=== PATIENT | female | born 1950 | race Caucasian/White ===

== ENCOUNTER → 2016-08-22 | Outpatient (CLI) | payer BC ==
[~2016-08-22] MED LIST: ASPI81TA28 PO; BRIM0.2S OPR; BUPRTAB51 PO; DESV50TA2 PO; ESCI1TAB10 PO; INSDGI SC; LIRA18IN INJ; LOSA50TA6 PO; NXM/40 PO; PRED1SUS3 OPR; SIMV40TA2 PO
--- NOTE | 2016-08-22 12:46 | DIAGNOSTIC IMAGING REPORT ---
ABDOMEN 2VIEW W/PA CHEST RTN CLINICAL HISTORY: ABDOMINAL PAIN pain COMPARISON STUDY: 11/19/2013 FINDINGS: Nonobstructive bowel pattern. Surgical clip right upper quadrant. Unchanging left renal calcification. Postoperative changes low lumbar spine stable area IMPRESSION: No acute process. Nonobstructive bowel pattern. Electronically signed by: Nahid Oliva M.D. 08/22/2016 12:44 PM Dictated Date/Time: 08/22/2016 12:42 PM
== END | disposition home or self-care (01) ==
LOC: C.RADBC 11:55
PROVIDERS: ATTEND Family Medicine
DX: R10.9 Unspecified abdominal pain (principal)

== ENCOUNTER → 2016-08-22 | Outpatient (CLI) | payer BC ==
--- NOTE | 2016-08-22 16:38 | MAMMOGRAPHY REPORT ---
BILATERAL DIGITAL SCREENING MAMMOGRAM WITH CAD: 08/22/2016 CLINICAL HISTORY: Routine screening. Patient has no complaints. TECHNIQUE: Bilateral CC, MLO, XCCM and repeat MLO views were obtained. Current study was also evalu ated with a Computer Aided Detection (CAD) system. COMPARISON: Comparison is made to exams dated: 08/20/2015 mammogram, 08/14/2013 mammogram, 08/18/2014 mammogram, 08/13/2012 mammogram, 08/10/2011 mammogram, and 08/08/2010 mammogram - [facility]. BREAST COMPOSITION: The tissue of both breasts is almost entirely fatty. FINDINGS: There are faint punctate microcalcifications diffusely scattered in the breasts. No new s uspicious mass, architectural distortion or cluster of microcalcifications is seen. IMPRESSION: ACR BI-RADS CATEGORY 1: NEGATIVE There is no mammographic evidence of malignancy. A 1 year screening mammogram is recommended. The p atient will receive written notification of the results. Approximately 10% of breast cancers are not detected with mammography. A negative mammographic repor t should not delay biopsy if a clinically suggestive mass is present. Gloria Herndon M.D. ay/:08/22/2016 16:19:21 Insulation Mechanic: Deidra CONCEPCION(Golden)(M), [facility] letter sent: Normal 1/2 BI-RADS Code: ACR BI-RADS Category 1: Negative
== END | disposition home or self-care (01) ==
LOC: C.MAMM 10:45
PROVIDERS: ATTEND Family Medicine
DX: Z12.31 Encounter for screening mammogram for malignant neoplasm of breast (principal); R10.9 Unspecified abdominal pain

== ENCOUNTER 2016-09-02 12:13 | Observation (INO) | payer BC, OTHER ==
[~2016-09-02] VITALS: Ht 165.1 cm; Wt 136.0 kg
[~2016-09-02 12:13] MED LIST changes: -DESV50TA2 PO
[2016-09-02] MEDS ORDERED: DESV50TA2 PO (12:50)
[2016-09-02] MEDS ORDERED: PRED1SUS3 OPR (12:50)
[2016-09-02] MEDS ORDERED: INSDGI SC (12:50)
[2016-09-02 13:24] LABS: MANUAL MICROSCOPIC REQUIRED? NO; REVIEW REQ? NO; URINE APPEARANCE CLEAR (CLEAR); URINE BILIRUBIN NEG (NEG); URINE COLOR DK YELLOW; URINE EPITHELIAL CELL AUTO >30 /lpf (0-5); URINE NITRITE NEG (NEG); URINE PH 6.5 (4.5-7.5); URINE SPECIFIC GRAVITY 1.021 (1.000-1.030); UROBILINOGEN NEG (NEG)
[2016-09-02 13:50] LABS: BASO % 0.3 %; BASO ABS # 0.02 K/uL (0-0.2); COMPLETE YES; EOS % 0.2 %; HEMATOCRIT 43.2 % (37-47); IG% 0.2 %; LYMPH % 33.7 %; LYMPH ABS # 1.99 K/uL (1.2-3.4); MEAN CORPUSCULAR HGB CONC 34.5 g/dl (32-36); MEAN PLATELET VOLUME 8.9 fL (7.4-10.4); MONO % 6.3 %; NEUT % 59.3 %; PLATELET COUNT 273 K/uL (130-400); RED BLOOD COUNT 5.14 M/uL (4.2-5.4)
[2016-09-02 13:51] LABS: INR 0.9 (0.9-1.1); PROTHROMBIN TIME (PATIENT) 9.8 SECONDS (9.0-12.0)
[2016-09-02 14:02] LABS: BUN/CREATININE RATIO 13.4 (10-20); CREATININE 0.96 mg/dl (0.60-1.20); POTASSIUM 4.6 mmol/L (3.5-5.1)
--- NOTE | 2016-09-02 14:10 | DIAGNOSTIC IMAGING REPORT ---
ABDOMEN 2VIEW W/PA CHEST RTN CLINICAL HISTORY: Upper abdominal pain COMPARISON STUDY: 08/14/2016 FINDINGS: The erect chest reveals no evidence of free air. There is no evidence of focal pulmonary consolidation.] Erect and supine views of the abdomen reveal no abnormally dilated loops of large or small bowel. There are no transition zone to indicate bowel obstruction. There are postsurgical changes present within the lumbar spine. There is moderate stool present within the colon. There are multiple pelvic basin calcifications which likely represent phleboliths. IMPRESSION: No evidence of bowel obstruction. No evidence of free air. Electronically signed by: Jeff Rodríguez M.D. 09/02/2016 2:08 PM Dictated Date/Time: 09/02/2016 2:07 PM
[2016-09-02 14:18] LABS: ESTIMATED AVERAGE GLUCOSE 120 mg/dl; HA1C FLAG Normal (Normal)
[2016-09-02] MEDS ORDERED: OPTIRAY 320 IV PRN (14:30)
--- NOTE | 2016-09-02 15:04 | DIAGNOSTIC IMAGING REPORT ---
CT ANGIOGRAM OF THE CHEST CLINICAL HISTORY: Chest and abdominal pain. COMPARISON STUDY: September 2008 TECHNIQUE: Following the IV administration of 59 mL of Optiray-320, CT angiogram of the thorax was performed from the thoracic inlet to the lung bases utilizing the pulmonary embolus protocol. Images are reviewed in the axial, sagittal, and coronal planes. IV contrast was administered without complication. MIP imaging was performed. CT DOSE: 2851.63 mGy.cm FINDINGS: Within the upper abdomen there is a metallic density adjacent the gallbladder fundus. There is a partially visualized right renal cyst. There is left-sided nephrolithiasis. No pathologically enlarged axillary mediastinal or hilar lymph nodes were visualized. There was no evidence of thoracic aortic dilatation. There were no pulmonary artery filling defects to indicate acute pulmonary embolism. No pleural effusions are visualized. There is no focal pulmonary consolidation. IMPRESSION: 1. No CT evidence of acute pulmonary embolism 2. No evidence of focal pulmonary consolidation. Electronically signed by: Jeff Rodríguez M.D. 09/02/2016 3:02 PM Dictated Date/Time: 09/02/2016 2:58 PM
--- NOTE | 2016-09-02 15:08 | DIAGNOSTIC IMAGING REPORT ---
CT ABD/PELVIS IV CONTRAST ONLY CLINICAL HISTORY: upper abd pain COMPARISON STUDY: 01/27/2016 TECHNIQUE: Following the IV administration of 59 mL of Optiray-320, CT scan of the abdomen and pelvis was performed from the lung bases to the proximal femurs. Images are reviewed in the axial, sagittal, and coronal planes. IV contrast was administered without complication. CT DOSE: FINDINGS: Lower chest: The heart is normal in size and configuration, without pericardial effusion. The lung bases and pleural spaces are clear. Liver: The contrast-enhanced liver is normal in size, contour, and attenuation. There is no intrahepatic biliary ductal dilatation. The hepatic veins and portal veins are patent. Gallbladder: No stones are visualized. There is a metallic density abutting the gallbladder fundus Spleen: Normal in size and attenuation. Pancreas: Unremarkable. Adrenal glands: Unremarkable. Kidneys: No solid there is a 6 cm right renal cyst. Renal masses are visualized. There is no hydronephrosis. Bowel: There are no transition zones indicate bowel obstruction. There is no evidence of acute diverticulitis. There are scattered colonic diverticula present. There are no findings to indicate acute appendicitis. Peritoneum: There is no intraperitoneal free air or abdominal ascites. Vasculature: The abdominal aorta is normal in course and caliber. Adenopathy: None. Pelvic viscera: The bladder, and pelvic viscera are unremarkable. Skeletal structures: There are postsurgical changes present within the lumbar spine. There is evidence for prior spinal fusion. IMPRESSION: 1. No acute intra-abdominal or pelvic findings 2. No evidence of bowel obstruction. No evidence of free air 3. No evidence of acute appendicitis. No evidence of acute diverticulitis. Electronically signed by: Jeff Rodríguez M.D. 09/02/2016 3:06 PM Dictated Date/Time: 09/02/2016 3:02 PM
[2016-09-02] MEDS ORDERED: ONDANSETRON INJ 2 MG/ML 2 ML VIAL IV PRN (16:30)
[2016-09-02] MEDS ORDERED: ACETAMINOPHEN 325 MG TAB PO PRN (16:30)
[2016-09-02] MEDS ORDERED: LORAZEPAM 2 MG/ML 1 ML VIAL IV PRN ×2 (16:30)
[2016-09-02] MEDS ORDERED: MoRPHine SULFATE 4 MG/ML 1 ML CARP\\VIAL IV PRN (16:30)
[2016-09-02] MEDS ORDERED: MoRPHine SULFATE 2 MG/ML CARP IV PRN (16:30)
[2016-09-02] MEDS ORDERED: OXYCODONE HCL IR 5 MG TAB (IMMEDIATE RELEASE) PO PRN (16:30)
[2016-09-02] MEDS ORDERED: NITROGLYCERIN 0.4 MG SL PER TAB CHARGE SL PRN (16:30)
[2016-09-02] MEDS ORDERED: LORAZEPAM 0.5 MG TAB PO PRN (16:30)
[2016-09-02] MEDS ORDERED: POLYETHYLENE (MIRALAX) 17 GM PACK PO PRN (16:30)
[2016-09-02] MEDS ORDERED: IV FLUIDS COMPLETED PRN (17:45)
--- NOTE | 2016-09-02 18:03 | HISTORY & PHYSICAL EXAMINATION ---
DATE OF ADMISSION: 09/02/2016 HISTORY OF PRESENT ILLNESS: Ms. Lau is a 65-year-old female here who presents with a stuttering history of dyspnea, diaphoresis and nausea with exertion which has occurred over the last 4-6 weeks. This is checkered by her history of anxiety and depression. She, however, does have risk factors of dyslipidemia, obesity and diabetes with a distant history of smoking, which she quit 25 years ago. The patient says that she did seek care at her family medicine doctor's office who did a plain EKG in the office without remark. She, however, has been having increasing episodes. Her is with her, he said they were shopping at [employer] most recently, she was pushing the cart, she almost threw up, became diaphoretic and markedly dyspneic just pushing the cart around the store. This resolved with rest. She is recommended for observation for evaluation of this being an anginal equivalent. PAST MEDICAL HISTORY: Depression, anxiety, diabetes, previous cholecystectomy, total knee arthroplasty and spinal fusion. MEDICATIONS: Aspirin 81 a day, Combigan eyedrops, Wellbutrin XL 300 a day, Pristiq 50 b.i.d., Nexium 40 a day, Lantus 15 units subQ daily, Victoza 0.18 units daily, Cozaar 50 a day, prednisolone eyedrops and Zocor 40 daily. SOCIAL HISTORY: As mentioned, she did smoke 25 years ago. Does not drink alcohol. She is accompanied by her . FAMILY HISTORY: Positive for cancer, diabetes, hypertension. There is heart disease in her grandmother, but she said it was a "fatty heart." REVIEW OF SYSTEMS: Ten systems are reviewed and are negative unless listed in that document. She does claim to have a variable bowel habits alternating with constipation and diarrhea. She also has most recently been treated for an outpatient urinary tract infection and her symptoms have resolved. PHYSICAL EXAMINATION: GENERAL: She is pleasant. She is morbidly obese. VITAL SIGNS: Her temperature is 37.2, pulse is 78, respirations 20, BP 134/70, O2 sat 98. Her BMI is 50. HEENT: PERRL, EOMI. Oropharynx clear. NECK: Without lymphadenopathy, JVD, thyromegaly. HEART: Regular without murmurs, clicks, rubs or gallops. LUNGS: Clear without wheezes or crackles. Good air movement. ABDOMEN: Obese, normoactive bowel sounds, soft. EXTREMITIES: Without cyanosis, clubbing or edema. NEUROLOGIC: She is awake, alert and appropriate. Cranial nerves II through XII are intact. Equal symmetrical strength and sensation. SKIN: Without lesions, growths, bruises or bleeding. PSYCHOLOGICAL: She is tearful and tremulous during my examination. LABORATORY DATA: She has had multiple imaging studies in the ER including a chest x-ray, CTA and CT abdomen and pelvis, these are all unremarkable. She had an EKG showing sinus rhythm without acute ST or T-wave changes. She had a troponin that was unremarkable. LFTs are okay. Hemoglobin A1c of 5.8. Her BUN and creatinine are 13 and 0.96. CBC is normal. ASSESSMENT: A 65-year-old white female with cardiac risk factors of smoking, obesity, diabetes, and dyslipidemia who presents with exertional dyspnea, diaphoresis, and nausea, with a significant history of anxiety and depression. PLAN: The patient will be observed on telemetry unit. We will get serial enzymes, a resting echocardiogram. We will continue her Cozaar and aspirin. She believes she can walk on a treadmill, will schedule a stress treadmill test. Regarding her depression, we talked about this, she has been through many antidepressants, we will maintain her Cozaar and Pristiq or substitution of that at this point in time. Regarding her GERD, we will continue her Nexium. We will employ DVT prevention of Lovenox.
[2016-09-02 18:10] VITALS: Ht 165.1 cm; Wt 136.0 kg
--- NOTE | 2016-09-02 18:34 | EMERGENCY ROOM VISIT NOTE ---
History Report prepared by Charlotte: Elizabeth Diaz Under the Supervision of: Dr. Juan Holder M.D. First contact with patient: 12:37 Chief Complaint: ILLNESS Stated Complaint: STOMACH, SWEATING, DIZZY History of Present Illness The patient is a 65 year old female who presents to the Emergency Room with complaints of persistent episodes of dizziness for the past 1 month. She reports when she gets up and walking around, she starts to feel warm, dizzy, sweaty and experience upper abdominal pain and nausea. She states the abdominal pain is "dull" in nature and she also feels a "burning" type pain in her chest. She also admits to shortness of breath during the episodes. The patient saw her doctor 2 days ago and had an EKG that was unremarkable. This morning her nausea worsened, so she came to the ED. She has been able to eat today and states she has not vomited. The patient no longer has her gallbladder. She admits to a history of diabetes, hypertension and hyperlipidemia. She reports her bowels cycle between constipation and loose stools. She used to eat a "low carb, high fat diet" and states she lost 65 pounds, but that seems to have exacerbated her abdominal symptoms. 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 A total of 10 systems reviewed and were otherwise negative. Past Medical & Surgical Medical Problems: (1) Chest pain (2) Depression (3) Diabetes Surgical Problems: (1) S/P cholecystectomy (2) S/P knee replacement (3) S/P lumbar spinal fusion Family History Cancer Diabetes mellitus Heart disease Hypertension Social History Smoking Status: Former Smoker Alcohol Use: none Drug Use: none Marital Status: Housing Status: lives with family Occupation Status: unemployed Current/Historical Medications Scheduled Aspirin (Aspirin Ec), 81 MG PO QPM Brimonidine Tartrate-Timolol M (Combigan), 1 DROP OPR BID Bupropion (Wellbutrin-Xl), 300 MG PO DAILY Desvenlafaxine Succinate (Pristiq), 50 MG PO BID Esomeprazole Magnesium (Nexium), 40 MG PO QAM Insulin Glargine (Lantus), 15 SC QAM Liraglutide (Victoza), 0.18 MG INJ HS Losartan Potassium (Cozaar), 50 MG PO HS Prednisolone Acetate (Ophth) (Pred Forte 1% Oph), 1 DROPS OPR QAM Simvastatin (Zocor), 40 MG PO HS Allergies Coded Allergies: Erythromycin (Verified Adverse Reaction, Unknown, UPSET STOMACH, 09/02/16) Physical Exam Vital Signs Date Time Temp Pulse Resp B/P Pulse Ox O2 Delivery O2 Flow Rate FiO2 09/02/16 16:53 78 20 116/61 98 Room Air 09/02/16 14:38 78 20 134/70 98 Room Air 09/02/16 13:25 83 09/02/16 13:18 20 09/02/16 12:55 81 114/91 98 110/68 90 108/50 09/02/16 12:55 95 Room Air 09/02/16 12:16 37.2 105 20 92/62 95 Room Air Physical Exam Constitutional: Vital signs reviewed. Eyes: Pupils are equal round reactive to light. Conjunctiva are noninjected. ENT: Pharynx is clear without erythema or exudate. Mucous membranes are moist. Neck supple without meningeal signs. Respiratory: Clear to auscultation bilaterally. Breath sounds are equal bilaterally. Cardiovascular: Regular rate and rhythm. No rubs or gallops. GI: Soft, nondistended. Mild epigastric tenderness. Bowel sounds are present. Musculoskeletal: No peripheral edema. No lower extremity tenderness. Integumentary: No cyanosis. Neurological: The patient is awake and alert. No focal deficits. Psychiatric: Very anxious affect. Medical Decision & Procedures ER Provider Diagnostic Interpretation: This X-Ray was reviewed and interpreted by myself and the radiologist. ABDOMEN 2VIEW W/PA CHEST RTN CLINICAL HISTORY: Upper abdominal pain COMPARISON STUDY: 08/14/2016 FINDINGS: The erect chest reveals no evidence of free air. There is no evidence of focal pulmonary consolidation.] Erect and supine views of the abdomen reveal no abnormally dilated loops of large or small bowel. There are no transition zone to indicate bowel obstruction. There are postsurgical changes present within the lumbar spine. There is moderate stool present within the colon. There are multiple pelvic basin calcifications which likely represent phleboliths. IMPRESSION: No evidence of bowel obstruction. No evidence of free air. Electronically signed by: Jeff Rodríguez M.D. 09/02/2016 2:[address] scans were reviewed and interpreted by the radiologist and reviewed by myself. CT ABD/PELVIS IV CONTRAST ONLY CLINICAL HISTORY: upper abd pain COMPARISON STUDY: 01/27/2016 TECHNIQUE: Following the IV administration of 59 mL of Optiray-320, CT scan of the abdomen and pelvis was performed from the lung bases to the proximal femurs. Images are reviewed in the axial, sagittal, and coronal planes. IV contrast was administered without complication. CT DOSE: FINDINGS: Lower chest: The heart is normal in size and configuration, without pericardial effusion. The lung bases and pleural spaces are clear. Liver: The contrast-enhanced liver is normal in size, contour, and attenuation. There is no intrahepatic biliary ductal dilatation. The hepatic veins and portal veins are patent. Gallbladder: No stones are visualized. There is a metallic density abutting the gallbladder fundus Spleen: Normal in size and attenuation. Pancreas: Unremarkable. Adrenal glands: Unremarkable. Kidneys: No solid there is a 6 cm right renal cyst. Renal masses are visualized. There is no hydronephrosis. Bowel: There are no transition zones indicate bowel obstruction. There is no evidence of acute diverticulitis. There are scattered colonic diverticula present. There are no findings to indicate acute appendicitis. Peritoneum: There is no intraperitoneal free air or abdominal ascites. Vasculature: The abdominal aorta is normal in course and caliber. Adenopathy: None. Pelvic viscera: The bladder, and pelvic viscera are unremarkable. Skeletal structures: There are postsurgical changes present within the lumbar spine. There is evidence for prior spinal fusion. IMPRESSION: 1. No acute intra-abdominal or pelvic findings 2. No evidence of bowel obstruction. No evidence of free air 3. No evidence of acute appendicitis. No evidence of acute diverticulitis. Electronically signed by: Jeff Rodríguez M.D. 09/02/2016 3:[address] ANGIOGRAM OF THE CHEST CLINICAL HISTORY: Chest and abdominal pain. COMPARISON STUDY: September 2008 TECHNIQUE: Following the IV administration of 59 mL of Optiray-320, CT angiogram of the thorax was performed from the thoracic inlet to the lung bases utilizing the pulmonary embolus protocol. Images are reviewed in the axial, sagittal, and coronal planes. IV contrast was administered without complication. MIP imaging was performed. CT DOSE: 2851.63 mGy.cm FINDINGS: Within the upper abdomen there is a metallic density adjacent the gallbladder fundus. There is a partially visualized right renal cyst. There is left-sided nephrolithiasis. No pathologically enlarged axillary mediastinal or hilar lymph nodes were visualized. There was no evidence of thoracic aortic dilatation. There were no pulmonary artery filling defects to indicate acute pulmonary embolism. No pleural effusions are visualized. There is no focal pulmonary consolidation. IMPRESSION: 1. No CT evidence of acute pulmonary embolism 2. No evidence of focal pulmonary consolidation. Electronically signed by: Jeff Rodríguez M.D. 09/02/2016 3:02 PM Laboratory Results 09/02/16 13:10 Red Blood Count 5.14, Mean Corpuscular Volume 84.0, Mean Corpuscular Hemoglobin 29.0, Mean Corpuscular Hemoglobin Concent 34.5, Mean Platelet Volume 8.9, Neutrophils (%) (Auto) 59.3, Lymphocytes (%) (Auto) 33.7, Monocytes (%) (Auto) 6.3, Eosinophils (%) (Auto) 0.2, Basophils (%) (Auto) 0.3, Neutrophils # (Auto) 3.50, Lymphocytes # (Auto) 1.99, Monocytes # (Auto) 0.37, Eosinophils # (Auto) 0.01, Basophils # (Auto) 0.02 09/02/16 13:10 Test 09/02/16 12:55 09/02/16 13:10 09/02/16 13:17 Urine Color DK YELLOW Urine Appearance CLEAR (CLEAR) Urine pH 6.5 (4.5-7.5) Urine Specific Julian 1.021 (1.000-1.030) Urine Protein NEG (NEG) Urine Glucose (UA) NEG (NEG) Urine Ketones TRACE (NEG) Urine Occult Blood TRACE (NEG) Urine Nitrite NEG (NEG) Urine Bilirubin NEG (NEG) Urine Urobilinogen NEG (NEG) Urine Leukocyte Esterase NEG (NEG) Urine WBC (Auto) 1-5 /hpf (0-5) Urine RBC (Auto) 5-10 /hpf (0-4) Urine Hyaline Casts (Auto) 1-5 /lpf (0-5) Urine Epithelial Cells (Auto) >30 /lpf (0-5) Urine Bacteria (Auto) NEG (NEG) White Blood Count 5.90 K/uL (4.8-10.8) Red Blood Count 5.14 M/uL (4.2-5.4) Hemoglobin 14.9 g/dL (12.0-16.0) Hematocrit 43.2 % (37-47) Mean Corpuscular Volume 84.0 fL (80-100) Mean Corpuscular Hemoglobin 29.0 pg (25-34) Mean Corpuscular Hemoglobin Concent 34.5 g/dl (32-36) Platelet Count 273 K/uL (130-400) Mean Platelet Volume 8.9 fL (7.4-10.4) Neutrophils (%) (Auto) 59.3 % Lymphocytes (%) (Auto) 33.7 % Monocytes (%) (Auto) 6.3 % Eosinophils (%) (Auto) 0.2 % Basophils (%) (Auto) 0.3 % Neutrophils # (Auto) 3.50 K/uL (1.4-6.5) Lymphocytes # (Auto) 1.99 K/uL (1.2-3.4) Monocytes # (Auto) 0.37 K/uL (0.11-0.59) Eosinophils # (Auto) 0.01 K/uL (0-0.5) Basophils # (Auto) 0.02 K/uL (0-0.2) RDW Standard Deviation 45.0 fL (36.4-46.3) RDW Coefficient of Variation 14.5 % (11.5-14.5) Immature Granulocyte % (Auto) 0.2 % Immature Granulocyte # (Auto) 0.01 K/uL (0.00-0.02) Prothrombin Time 9.8 SECONDS (9.0-12.0) Prothromb Time International Ratio 0.9 (0.9-1.1) Activated Partial Thromboplast Time 25.4 SECONDS (21.0-31.0) Partial Thromboplastin Ratio 1.0 Anion Gap 5.0 mmol/L (3-11) Est Creatinine Clear Calc Drug Dose 80.0 ml/min Estimated GFR () 70.9 Estimated GFR (Non- 61.2 BUN/Creatinine Ratio 13.4 (10-20) Estimated Average Glucose 120 mg/dl Hemoglobin A1c 5.8 % (4.5-5.6) Calcium Level 9.0 mg/dl (8.5-10.1) Total Bilirubin 0.6 mg/dl (0.2-1) Direct Bilirubin 0.1 mg/dl (0-0.2) Aspartate Amino Transf (AST/SGOT) 14 U/L (15-37) Alanine Aminotransferase (ALT/SGPT) 18 U/L (12-78) Alkaline Phosphatase 71 U/L (45-117) Total Protein 6.9 gm/dl (6.4-8.2) Albumin 3.4 gm/dl (3.4-5.0) Lipase 151 U/L (73-393) Bedside Troponin I 0.000 ng/ml (0-0.045) Laboratory results as reviewed by me. ECG Indication: abdominal pain Rate (beats per minute): 75 Rhythm: normal sinus Findings: no acute ischemic change, no ectopy ED Course 1239: The patient was evaluated in room C8. A complete history and physical exam was performed. 1415: I reevaluated the patient. I discussed her test results and recommended a CT scan of her chest and abdomen. She is agreeable to a CT scan. 1539: I discussed the patients case with Dr. Meyer, [facility] Hospitalist. The patient will be further evaluated. 1545: I reevaluated the patient. I discussed her test results. I recommendation hospitalization for further evaluation and she verbalized complete understanding and agreement. Medical Decision This is a 65-year-old female who presents with exertional chest and abdominal pain, dyspnea and diaphoresis. Differential diagnosis includes unstable angina , HI, pulmonary embolism, pleurisy, anxiety, choledocholithiasis, pancreatitis. I did perform a limited focused review of portions of the patient's old chart on the electronic medical record. The patient has had no recent pertinent visits to this hospital. I did evaluate the patient as noted above. The patient has had intermittent symptoms for a month. Exertion makes her diaphoretic, dyspneic and near- syncope. She also has epigastric and lower chest pain. Currently she is asymptomatic. IV access was established. The patient was placed on a continuous cardiac/vascular sonographer. I did order and personally review the patient's 12- lead EKG and chest/abdomen x-rays as described above. Her twelve-lead EKG does not demonstrate any signs of acute ischemia. Her chest x-ray and abdominal x- ray did not show any acute process. I did order and review the patient's blood work as noted in the electronic medical record. Troponin is negative. I did order a CT of the chest, abdomen and pelvis. I did review the images myself as well as the radiology report as described above. There is no evidence of pulmonary embolism. No acute process in the abdomen and pelvis. I did discuss the test results with the patient. Given her persistent and worsening symptoms I did feel hospitalization was indicated for further workup and possible cardiac stress testing. I did discuss case with the hospitalist and caser in. Consults Time Called: [phone] Consulting Physician: Dr. Meyer, [facility] Hospitalist Returned Call: [phone] I discussed the patients case with Dr. Meyer, [facility] Hospitalist. The patient will be further evaluated. Impression Primary Impression: Near syncope Additional Impressions: Precordial chest pain Exertional dyspnea Upper abdominal pain Scribe Attestation The scribe's documentation has been prepared under my direct and personally reviewed by me in its entirety. I confirm that the note above accurately reflects all work, treatment, procedures, and medical decision making performed by me. Departure Information Dispostion Being Evaluated By Hospitalist Referrals No Doctor, Assigned (PCP) Patient Instructions My [facility] Problem Qualifiers
[2016-09-02] MEDS ORDERED: GLUCOSE 40% GEL 15 GM TUBE PO PRN (19:30)
[2016-09-02] MEDS ORDERED: GLUCAGON FOR INJ 1 MG VIAL SQ PRN (19:30)
[2016-09-02] MEDS ORDERED: DEXTROSE 50% 50 ML SYR IV PRN (19:30)
[2016-09-02] MEDS ORDERED: GLUCOSE 10 TABS/TUBE PO PRN (19:30)
[2016-09-02 19:37] VITALS: BP 136/81; PULSE 79; TEMP 37; O2SAT 96
[2016-09-02] MEDS ORDERED: LORAZEPAM INJ 1 MG in SYRINGE 0.5 ML IV PRN (19:45)
[2016-09-02] MEDS ORDERED: LORAZEPAM INJ 0.5 MG in SYRINGE 0.75 ML IV PRN (19:45)
[2016-09-02] MEDS: INSULIN ASPART 100 UNITS/ML 3 ML PEN SC SCH (21:00)
[2016-09-02] MEDS ORDERED: NON-FORMULARY MEDICATION (Brimonidine Tartrate-Timolol M (Combigan) 1 DROP) OPR SCH (21:00)
[2016-09-02] MEDS ORDERED: DESVENLAFAXINE SUCCINATE 50 MG PO SCH (21:00)
[2016-09-02] MEDS ORDERED: SIMVASTATIN 40 MG TAB PO SCH (21:00)
[2016-09-02] MEDS: LOSARTAN POTASSIUM 50 MG TAB PO SCH (21:09)
[2016-09-02] MEDS: ASPIRIN 81 MG ECTAB PO SCH (21:09)
[2016-09-02] MEDS: ENOXAPARIN 40 MG/0.4 ML SYR SC SCH (21:10)
[2016-09-02] MEDS: PANTOprazole SOD 40 MG TAB PO SCH (21:10)
[2016-09-02] MEDS: COMBIGAN~ORDER AWAITING ACTION SCH (23:19)
[2016-09-02 23:24] VITALS: BP 128/76; PULSE 72; TEMP 37; O2SAT 94
[2016-09-03] VITALS (7 sets, daily range): BP systolic 105–143; BP diastolic 68–87; PULSE 68–74; TEMP 36.7–36.9; O2SAT 95–98
[2016-09-03 06:51] LABS: HEMATOCRIT 42.5 % (37-47); MEAN CELL VOLUME 84.8 fL (80-100); MEAN CORPUSCULAR HEMOGLOBIN 28.5 pg (25-34); MEAN CORPUSCULAR HGB CONC 33.6 g/dl (32-36); MEAN PLATELET VOLUME 8.6 fL (7.4-10.4); PLATELET COUNT 229 K/uL (130-400); RED BLOOD COUNT 5.01 M/uL (4.2-5.4); WHITE BLOOD COUNT 5.54 K/uL (4.8-10.8)
[2016-09-03 07:36] LABS: BLOOD UREA NITROGEN 15 mg/dl (7-18); BUN/CREATININE RATIO 18.4 (10-20); CALCIUM 8.6 mg/dl (8.5-10.1); CARBON DIOXIDE 29 mmol/L (21-32); CHLORIDE 103 mmol/L (98-107); CREATININE 0.81 mg/dl (0.60-1.20); GLUCOSE 108 mg/dl (70-99); POTASSIUM 4.3 mmol/L (3.5-5.1); SODIUM 140 mmol/L (136-145)
[2016-09-03 07:40] LABS: CHOLESTEROL 228 mg/dl (0-200); CHOLESTEROL/HDL RATIO 3.6; HDL CHOLESTEROL 64 mg/dl; LDL CHOLESTEROL CALCULATED 148 mg/dl; TRIGLYCERIDES 82 mg/dl (0-150); VERY LOW DENSITY LIPOPROT CALC 16 mg/dl
[2016-09-03] MEDS: COMBIGAN~ORDER AWAITING ACTION SCH ×3 (08:00→23:29)
[2016-09-03] MEDS: INSULIN ASPART 100 UNITS/ML 3 ML PEN SC SCH ×4 (08:09→20:51)
[2016-09-03] MEDS: BuPROPion XL 300 MG TABCR PO SCH (08:16)
[2016-09-03] MEDS: PANTOprazole SOD 40 MG TAB PO SCH ×2 (08:16→20:43)
[2016-09-03] MEDS: PrednisoLONE ACET 1% OP SUSP 5 ML BTL OPR SCH (08:16)
[2016-09-03] MEDS: INSULIN GLARGINE SOLOSTAR 100 UNITS/ML 3 ML PEN SC SCH (08:18)
[2016-09-03] MEDS ORDERED: NON-FORMULARY MEDICATION (Esomeprazole Magnesium (Nexium) 40 MG) PO SCH (09:00)
[2016-09-03] MEDS ORDERED: ASPIRIN 81 MG ECTAB PO SCH (09:00)
--- NOTE | 2016-09-03 15:46 | ECHOCARDIOGRAM REPORT ---
*NOTICE TO RECEIVING DEMOCRAT AGENCY This information is strictly Confidential and protected under [place] law. [place] law prohibits you from making any further disclosure of this information unless further disclosure is expressly permitted by the written consent of the person to whom it pertains or is authorized by law. A general authorization for the release of medical or other information is not sufficient for this purpose. Hospital accepts no responsibility if the information is made available to any other person, INCLUDING THE PATIENT. Interpretation Summary * Name: ELICEO GOLDBERG Study Date: 09/03/2016 12:45 PM BP: 136/80 mmHg * Patient Location: [facility] HR: 74 * : 1950 (M/d/yyyy) Gender: Female Height: 65 in * Age: 65 yrs Ethnicity: CA Weight: 300 lb * Ordering Physician: Juan Meyer * Referring Physician: CARTER * Performed By: Aurelia Blake RDCS * * Reason For Study: CHF * BSA: 2.4 m2 * History: CHF * -- Conclusions -- * Left ventricular systolic function is normal. * Grade I diastolic dysfunction, (abnormal relaxation pattern). * No significant valvular disease Procedure Details * A complete two-dimensional transthoracic echocardiogram was performed (2D, M-mode, Doppler and color flow Doppler). Left Ventricle * The left ventricle is normal in size. * There is normal left ventricular wall thickness. * Ejection Fraction = 55-60%. * Left ventricular systolic function is normal. * Grade I diastolic dysfunction, (abnormal relaxation pattern). Right Ventricle * The right ventricle is not well visualized. * The right ventricle is grossly normal size. Atria * The left atrial size is normal. * Right atrial size is normal. Mitral Valve * The mitral valve is grossly normal. * There is no mitral regurgitation noted. Tricuspid Valve * The tricuspid valve is not well visualized. * Significant tricuspid regurgitation is absent. Aortic Valve * The aortic valve is not well visualized. * No hemodynamically significant valvular aortic stenosis. * There is no significant aortic regurgitation. Pulmonic Valve * The pulmonic valve is not well visualized. Pericardium/Pleural * Prominent pericardial fat pad MMode 2D Measurements and Calculations IVSd 1.0 cm IVSs 1.4 cm LVIDd 4.7 cm LVIDs 3.5 cm LVPWd 1.1 cm LVPWs 1.6 cm IVS/LVPW 0.92 FS 25.4 % EDV(Teich) 100.9 ml ESV(Teich) 50.4 ml EF(Teich) 50.0 % EDV(cubed) 101.9 ml ESV(cubed) 42.4 ml EF(cubed) 58.4 % % IVS thick 36.7 % % LVPW thick 45.1 % LV mass(C)d 183.5 grams LV mass(C)dI 78.1 grams/m\S\2 LV mass(C)s 200.6 grams LV mass(C)sI 85.3 grams/m\S\2 SV(Teich) 50.5 ml SI(Teich) 21.5 ml/m\S\2 SV(cubed) 59.5 ml SI(cubed) 25.3 ml/m\S\2 LA dimension 2.9 cm LVAd ap4 27.9 cm\S\2 LVLd ap4 7.8 cm EDV(MOD-sp4) 85.3 ml EDV(sp4-el) 85.1 ml LVAs ap4 16.3 cm\S\2 LVLs ap4 6.6 cm ESV(MOD-sp4) 35.4 ml ESV(sp4-el) 34.6 ml EF(MOD-sp4) 58.5 % EF(sp4-el) 59.4 % LVAd ap2 20.0 cm\S\2 LVLd ap2 7.4 cm EDV(MOD-sp2) 48.0 ml EDV(sp2-el) 45.5 ml LVAs ap2 12.0 cm\S\2 LVLs ap2 6.2 cm ESV(MOD-sp2) 21.3 ml ESV(sp2-el) 19.7 ml EF(MOD-sp2) 55.6 % EF(sp2-el) 56.7 % LVLd %diff -4.93 % EDV(MOD-bp) 65.7 ml LVLs %diff -5.19 % ESV(MOD-bp) 28.0 ml EF(MOD-bp) 57.3 % SV(MOD-sp4) 49.8 ml SI(MOD-sp4) 21.2 ml/m\S\2 SV(MOD-sp2) 26.7 ml SI(MOD-sp2) 11.4 ml/m\S\2 SV(MOD-bp) 37.6 ml SI(MOD-bp) 16.0 ml/m\S\2 SV(sp4-el) 50.5 ml SI(sp4-el) 21.5 ml/m\S\2 SV(sp2-el) 25.8 ml SI(sp2-el) 11.0 ml/m\S\2 Doppler Measurements and Calculations MV A max jaci 95.6 cm/sec MV P1/2t max jaci 78.6 cm/sec MV dec time 0.24 sec Ao V2 max 136.3 cm/sec Ao max PG 7.4 mmHg Ao max PG (full) 4.7 mmHg LV V1 max PG 2.8 mmHg LV V1 max 83.4 cm/sec
--- NOTE | 2016-09-03 16:04 | Progress Note ---
Subjective Date of Service: Sep 03, 2016. Subjective Pt evaluation today including: conversation w/ patient, conversation w/ family , physical exam, lab review, review of inpatient medication list Pain: no pain PO Intake: adequate Voiding: no voiding problems patient only walked 3 minutes on treadmill, had nausea, diaphoresis like she typically does no EKG changes, echo normal, discussed with Dr. Davidson plan for nuclear stress test tomorrow Problem List Medical Problems: (1) Exertional dyspnea Status: Acute (2) Near syncope Status: Acute (3) Precordial chest pain Status: Acute (4) Sinus pain Status: Acute (5) Upper abdominal pain Status: Acute Review of Systems Constitutional: + sweats, + weakness Abdomen: + nausea All Other Systems: Reviewed and Negative Medications Current Inpatient Medications Medications (Trade) Dose Ordered Sig/[place] Route Start Time Stop Time Status Last Admin Dose Admin Ioversol (Optiray 320) 100 ml UD PRN IV 09/02/16 14:30 09/06/16 14:29 Aspirin (Ecotrin Tab) 81 mg QPM PO 09/02/16 21:00 10/02/16 20:59 09/02/16 21:09 81 MG Bupropion HCl (Wellbutrin-Xl Tab) 300 mg DAILY PO 09/03/16 09:00 10/03/16 08:59 09/03/16 08:16 300 MG Insulin Glargine (Lantus Solostar Pen) 15 unit QAM SC 09/03/16 09:00 10/03/16 08:59 09/03/16 08:18 15 UNIT Losartan Potassium (coZAAR TAB) 50 mg HS PO 09/02/16 21:00 10/02/16 20:59 09/02/16 21:09 50 MG Prednisolone Acetate (Pred Forte 1% Oph Susp) 1 drops QAM OPR 09/03/16 09:00 10/03/16 08:59 09/03/16 08:16 1 DROPS Enoxaparin Sodium (Lovenox Inj) 40 mg HS SC 09/02/16 21:00 10/02/16 20:59 09/02/16 21:10 40 MG Acetaminophen (Tylenol Tab) 650 mg Q4H PRN PO 09/02/16 16:30 10/02/16 16:29 09/03/16 08:17 650 MG Ondansetron HCl (Zofran Inj) 4 mg Q6H PRN IV 09/02/16 16:30 10/02/16 16:29 09/03/16 10:04 4 MG Nitroglycerin (Nitrostat Tab) 0.4 mg UD PRN SL 09/02/16 16:30 10/02/16 16:29 Polyethylene (Miralax Powder Packet) 17 gm DAILY PRN PO 09/02/16 16:30 10/02/16 16:29 Insulin Aspart (novoLOG ASPART) SLIDING SCALE PARAMETER ACHS SC 09/02/16 21:00 10/02/16 20:59 Lorazepam (Ativan Inj) 0.5 mg Q4H PRN IV 09/02/16 16:30 10/02/16 16:29 Lorazepam (Ativan Inj) 1 mg Q4H PRN IV 09/02/16 16:30 10/02/16 16:29 Lorazepam (Ativan Tab) 0.5 mg Q6 PRN PO 09/02/16 16:30 10/02/16 16:29 09/02/16 21:18 0.5 MG Morphine Sulfate (MoRPHine SULFATE INJ) 4 mg Q4H PRN IV 09/02/16 16:30 09/16/16 16:29 Morphine Sulfate (MoRPHine SULFATE INJ) 2 mg Q4H PRN IV 09/02/16 16:30 09/16/16 16:29 Oxycodone HCl (Roxicodone Immediate Rel Tab) 10 mg Q6 PRN PO 09/02/16 16:30 09/16/16 16:29 Pantoprazole Sodium (Protonix Tab) 40 mg BID PO 09/02/16 21:00 10/02/16 20:59 09/03/16 08:16 40 MG Miscellaneous (Iv Fluids Completed) 1 ea PRN PRN N/A 09/02/16 17:45 09/02/17 17:44 Glucose (Glucose 40% Gel) 15-30 GRAMS 15 GRAMS... UD PRN PO 09/02/16 19:30 10/02/16 19:29 Glucose (Glucose Chew Tab) 4-8 Tablets 4 Tabl... UD PRN PO 09/02/16 19:30 10/02/16 19:29 Dextrose (Dextrose 50% 50ML Syringe) 25-50ML OF 50% DW IV FOR... UD PRN IV 09/02/16 19:30 10/02/16 19:29 Glucagon (Glucagon Inj) 1 mg UD PRN SQ 09/02/16 19:30 10/02/16 19:29 Miscellaneous Information (Order Awaiting Action) 1 ea QS N/A 09/03/16 00:00 10/03/16 00:00 Miscellaneous Information 1 ea 1 ea QS N/A 09/03/16 00:00 10/03/16 00:00 Lorazepam 1 mg/ Syringe 1 ml @ 1 mls/min Q4H PRN IV 09/02/16 19:45 10/02/16 19:44 Lorazepam/Syringe (Ativan Inj/ Syringe) 1 ml @ 1 mls/min Q4H PRN IV 09/02/16 19:45 10/02/16 19:44 Atorvastatin Calcium (Lipitor Tab) 40 mg HS PO 09/03/16 21:00 10/03/16 20:59 Objective Vital Signs Date Time Temp Pulse Resp B/P Pulse Ox O2 Delivery O2 Flow Rate FiO2 09/03/16 15:28 36.8 72 16 134/82 95 Room Air 09/03/16 12:30 Room Air 09/03/16 11:52 36.7 74 18 136/80 95 Room Air 09/03/16 07:45 Room Air 09/03/16 07:39 36.9 70 17 143/87 98 Room Air 09/03/16 04:10 Room Air 09/03/16 04:02 36.8 72 18 119/81 97 Room Air 09/03/16 00:08 Room Air 09/02/16 23:24 37.0 72 18 128/76 94 Room Air 09/02/16 19:57 Room Air 09/02/16 19:37 37.0 79 18 136/81 96 Room Air 09/02/16 19:06 102 18 111/59 95 09/02/16 19:00 102 18 111/59 95 Room Air 09/02/16 18:10 Room Air 09/02/16 16:53 78 20 116/61 98 Room Air Physical Exam General Appearance: no apparent distress, + obese Eyes: normal inspection, EOMI, sclerae normal ENT: normal ENT inspection, hearing grossly normal, pharynx normal Neck: supple, no adenopathy, no JVD, trachea midline Respiratory/Chest: chest non-tender, lungs clear, normal breath sounds, no respiratory distress, no accessory muscle use Cardiovascular: regular rate, rhythm, no edema, no gallop, no JVD, no murmur Abdomen: normal bowel sounds, non tender, soft, no organomegaly Extremities: normal range of motion, non-tender, normal inspection, no pedal edema, no calf tenderness 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6 fL Sodium Level 140 mmol/L Potassium Level 4.3 mmol/L Chloride Level 103 mmol/L Carbon Dioxide Level 29 mmol/L Anion Gap 8.0 mmol/L Blood Urea Nitrogen 15 mg/dl Creatinine 0.81 mg/dl Est Creatinine Clear Calc Drug Dose 94.4 ml/min Estimated GFR () 87.1 Estimated GFR (Non- 75.2 BUN/Creatinine Ratio 18.4 Random Glucose 108 mg/dl Calcium Level 8.6 mg/dl Triglycerides Level 82 mg/dl Cholesterol Level 228 mg/dl HDL Cholesterol 64 mg/dl LDL Cholesterol, Calculated 148 mg/dl VLDL Cholesterol, Calculated 16 mg/dl Cholesterol/HDL Ratio 3.6 Test 09/03/16 11:47 Bedside Glucose 119 mg/dl Assessment and Plan 65 yo female with history of obesity, high cholesterol, diabetes presenting with anginal like symptoms of diaphoresis and nausea with exertion - Anginal equivalent? normal troponin, normal EKG exercise treadmill today, only lasted 3 minutes before she had symptoms no EKG changes resting echo was normal d/w cardiology, will get Lexiscan test tomorrow to rule out CAD continue aspirin - Hyperlipidemia: change Zocor to Lipitor since LDL high at 146 despite therapy - DM: sugars well controlled on Lantus, Victoza - Obesity: says she has lost 60 pounds recently - DVT prophylaxis: lovenox
--- NOTE | 2016-09-03 18:09 | EXERCISE STRESS TEST ---
EXERCISE STRESS TEST REPORT INDICATION: Exertional dyspnea. FINDINGS: The patient was able to exercise using a standard Jerel protocol for a total of 3 minutes, achieving a maximum heart rate of 139 beats per minute which was 92% of her predicted maximum. The patient's blood pressure at baseline was reported to be 200/100 during exercise, but at the conclusion of the test was 154/75. A baseline EKG revealed normal sinus rhythm without notable ST or T-wave changes. At peak exertion there was no significant ST or T-wave changes. There were no ST or T-wave changes suggestive of ischemia during the entire study. The patient did complain of her index symptom which was dyspnea and nausea at peak exertion which required termination of the test. These symptoms resolved prior to discharge. Zavala treadmill score is 3 which is moderate risk. IMPRESSION: 1. No evidence of ischemia at the workload achieved. 2. Overall poor exercise tolerance. 3. Production of index symptoms without objective evidence of ischemia.
[2016-09-03] MEDS: ENOXAPARIN 40 MG/0.4 ML SYR SC SCH (20:43)
[2016-09-03] MEDS: ASPIRIN 81 MG ECTAB PO SCH (20:43)
[2016-09-03] MEDS: LOSARTAN POTASSIUM 50 MG TAB PO SCH (20:43)
[2016-09-03] MEDS: ATORVASTATIN 40 MG TAB PO SCH (20:43)
[2016-09-04 03:42] VITALS: BP 112/72; PULSE 70; O2SAT 94
[2016-09-04] MEDS: COMBIGAN~ORDER AWAITING ACTION SCH ×2 (06:59→16:00)
[2016-09-04 07:57] VITALS: BP 138/71; PULSE 74; TEMP 36.8; O2SAT 95
--- NOTE | 2016-09-04 08:18 | Hospitalist Progress Note ---
Hospitalist Progress Note Date of Service Sep 04, 2016. (Graciela Gutierrez PA-C) Subjective Pt evaluation today including: conversation w/ patient, conversation w/ family , physical exam, chart review, lab review, review of studies, review of inpatient medication list Pain: none PO Intake: ate breakfast, nothing by mouth for stress test Voiding: no voiding problems Additional Comments: Constitutional: No fever, chills, sweats, fatigue or weakness Eyes: No diplopia, no changes in vision ENT: No sore throat, tinnitus, or trouble swallowing Respiratory: No shortness of breath, No dyspnea at rest or on exertion, no cough or sputum Cardiovascular: No chest pain, palpitations, or flutter Abdomen: No pain, No constipation, No diarrhea, No nausea, No vomiting Musculoskeletal: No calf pain, No joint pain, No swelling Genitourinary : No dysuria or urinary frequency, No hematuria Neurologic: No numbness/tingling, no difficulty with ambulation, no sensory or motor deficits Psychiatric: No depression or anxiety symptoms Endocrine: No fatigue, No weight changes Integumentary: No itch, No rash (Graciela Gutierrez PA-C) Objective Vital Signs Date Time Temp Pulse Resp B/P Pulse Ox O2 Delivery O2 Flow Rate FiO2 09/04/16 07:57 36.8 74 20 138/71 95 Room Air 09/04/16 04:02 Room Air 09/04/16 03:42 70 20 112/72 94 Room Air 09/04/16 00:04 Room Air 09/03/16 23:49 36.7 68 18 105/68 95 Room Air 09/03/16 20:11 36.9 74 16 120/76 95 Room Air 09/03/16 20:04 Room Air 09/03/16 16:00 95 Room Air 09/03/16 15:28 36.8 72 16 134/82 95 Room Air 09/03/16 12:30 Room Air 09/03/16 11:52 36.7 74 18 136/80 95 Room Air (Graciela Gutierrez PA-C) Physical Exam Notes: General: awake, alert, no apparent distress, + morbidly obese Head: Normocephalic, atraumatic ENT: PERRL, EOMI, no pharyngeal exudate, mucous membranes moist Chest: Clear to auscultation, on room air, no adventitious breath sounds Cardiac: Regular rate and rhythm, no murmur, no JVD, normal peripheral pulses, good capillary refill Abdominal: NABS x 4 quadrants, soft, nontender to palpation, no rebound, guarding or tenderness Extremities: Normal inspection, no peripheral edema or erythema, calfs nontender to palpation Psych: Normal mood and affect Neuro: AAO x 3, strength intact bilaterally and related 5/5, no motor deficits, speech is clear, no peripheral sensory deficits (Graciela Gutierrez, MASHAC) Laboratory Results Last 24 Hours Test 09/03/16 11:47 09/03/16 16:34 09/03/16 20:49 09/04/16 07:37 Bedside Glucose 119 mg/dl 121 mg/dl 127 mg/dl 103 mg/dl (Graciela Gutierrez, MASHAC) Assessment and Plan 65 yo female with history of obesity, high cholesterol, diabetes presenting with anginal like symptoms of diaphoresis and nausea with exertion Chest pain rule out Anginal equivalent? normal troponin, normal EKG - exercise treadmill on 09/03/16; patient was only able to complete 3 minutes on the treadmill - no EKG changes - resting echo was normal - Plan for Lexiscan test today to rule out CAD - continue aspirin Hyperlipidemia: - change Zocor to Lipitor since LDL high at 146 despite therapy DM: sugars well controlled on Lantus, Victoza - Patient has some symptoms of nausea which may be related to hypoglycemia. -Discussion was held with the patient regarding checking her glucose as an outpatient on a regular basis. She already has a follow-up with her PCP P scheduled for this Sunday Morbid Obesity - BMI= 49.9: says she has lost 60 pounds recently - Pt will need diet and exercise- encouraged Depression/anxiety -Patient was recently transitioned off of Lexapro to Pristiq, continue wellbutrin - DVT prophylaxis: lovenox Disposition: patient from home, likely discharge after stress test if all is normal later today. (Graciela Gutierrez, MASHAC) I agree with PA assessment and plan and have seen and examined pt myself Resting comfortably in bed No further chest pain VSS Labs reviewed Awaiting Lexiscan stress test Trops x 3 sets unremarkable and EKG reviewed with no ischemic changes Cont to follow (Armando Shetty D.O.)
[2016-09-04] MEDS: INSULIN ASPART 100 UNITS/ML 3 ML PEN SC SCH ×4 (08:43→20:40)
[2016-09-04] MEDS: PANTOprazole SOD 40 MG TAB PO SCH ×2 (08:45→20:37)
[2016-09-04] MEDS: BuPROPion XL 300 MG TABCR PO SCH (08:45)
[2016-09-04] MEDS: PrednisoLONE ACET 1% OP SUSP 5 ML BTL OPR SCH (08:45)
[2016-09-04] MEDS: INSULIN GLARGINE SOLOSTAR 100 UNITS/ML 3 ML PEN SC SCH (08:51)
--- NOTE | 2016-09-04 11:20 | Discharge Instructions ---
Discharge Instructions Date of Service Sep 04, 2016. Admission Reason for Admission: Chest Pain Discharge Discharge Diagnosis / Problem: chest pain Discharge Goals Goal(s): Decrease discomfort, Improve function, Increase independence, Improve disease control Activity Recommendations Activity Limitations: resume your previous activity Lifting Limitations: no more than 25 pounds, gradually increase as tolerated Exercise/Sports Limitations: gradually increase as tolerated May Resume Sexual Activity: when tolerated Shower/Bathe: no limitations Driving or Machine Use: no limitations . Instructions / Follow-Up Instructions / Follow-Up You were admitted to [facility] with chest pain. During your stay here you were treated with intravenous fluids, aspirin, and your regular antihypertensive regimen. Blood work was trended during your stay which was negative for cardiac ischemia (evidence of heart attack lack of blood flow to the heart muscle) You had an treadmill stress test echocardiogram 09/03/16 completed which was normal A stress test was completed on 09/05/16 was also normal. Continue taking all medications as prescribed. Follow up with your PCP as already scheduled on 09/06/16. Follow up with cardiology within 2-[address] Davidson. An appointment will be scheduled for you. Current Hospital Diet Patient's current hospital diet: Diabetes Type 2 Diet Discharge Diet Recommended Diet: AHA Diet (Heart Healthy), Diabetes Type 2 Diet Procedures Procedures Performed: Exercise (Treadmill) stress test 09/03/16 Nuclear Stress Test 09/05/16 Pending Studies Studies pending at discharge: no Laboratory Results Hemoglobin A1c Test 09/02/16 13:10 Range/Units Estimated Average Glucose 120 mg/dl Hemoglobin A1c 5.8 H 4.5-5.6 % Lipid Panel Test 09/03/16 06:30 Range/Units Triglycerides Level 82 0-150 mg/dl Cholesterol Level 228 H 0-200 mg/dl HDL Cholesterol 64 mg/dl Cholesterol/HDL Ratio 3.6 LDL Cholesterol, Calculated 148 mg/dl Medical Emergencies . Who to Call and When: Medical Emergencies: If at any time you feel your situation is an emergency, please call 911 immediately. . Non-Emergent Contact Non-Emergency issues call your: Primary Care Provider Call Non-Emergent contact if: you have a fever, temperature is above 100.5, your pain is not controlled, your pain is worsening, your pain is unusual for you, your pain is concerning you, you have any medication questions . Past History Medical & Surgical History: (1) Chest pain (2) Depression (3) Diabetes (4) Mood disorder (5) Back pain with radiation . "Provider Documentation" section prepared by Stefany Gutierrez. Attending Attestation: Pt seen/examined and care plan d/w JAZMIN Gutierrez on day of discharge. I agree w/ her discharge instructions as outlined. Chivo Aleman MD VTE Core Measure Inpt VTE Proph given/why not?: Unfractionated heparin SQ, T.E.D. Stockings, SCD 's
[2016-09-04 11:42] VITALS: BP 118/70; PULSE 70; TEMP 36.8; O2SAT 95
[2016-09-04] MEDS ORDERED: REGADENOSON 0.4 MG/5 ML SYR ONE (12:31)
[2016-09-04 15:02] VITALS: BP 113/77; PULSE 77; TEMP 36.7; O2SAT 96
[2016-09-04 16:00] VITALS: O2SAT 96
[2016-09-04 20:21] VITALS: BP 126/80; PULSE 80; TEMP 36.8; O2SAT 95
[2016-09-04] MEDS: ATORVASTATIN 40 MG TAB PO SCH (20:37)
[2016-09-04] MEDS: LOSARTAN POTASSIUM 50 MG TAB PO SCH (20:37)
[2016-09-04] MEDS: ASPIRIN 81 MG ECTAB PO SCH (20:37)
[2016-09-04] MEDS: ENOXAPARIN 40 MG/0.4 ML SYR SC SCH (20:38)
[2016-09-05 00:11] VITALS: BP 116/66; PULSE 74; TEMP 36.8; O2SAT 97
[2016-09-05 04:16] VITALS: BP 113/73; PULSE 69; TEMP 36.6; O2SAT 98
[2016-09-05 07:24] LABS: HEMATOCRIT 41.3 % (37-47); MEAN CELL VOLUME 82.9 fL (80-100); MEAN CORPUSCULAR HEMOGLOBIN 28.3 pg (25-34); MEAN CORPUSCULAR HGB CONC 34.1 g/dl (32-36); MEAN PLATELET VOLUME 8.7 fL (7.4-10.4); PLATELET COUNT 214 K/uL (130-400); RED BLOOD COUNT 4.98 M/uL (4.2-5.4); WHITE BLOOD COUNT 4.63 K/uL (4.8-10.8)
[2016-09-05 07:45] LABS: BUN/CREATININE RATIO 19.6 (10-20); CALCIUM 8.8 mg/dl (8.5-10.1); CREATININE 0.75 mg/dl (0.60-1.20); POTASSIUM 4.2 mmol/L (3.5-5.1)
[2016-09-05 07:48] VITALS: BP 128/78; PULSE 71; TEMP 36.7; O2SAT 98
[2016-09-05] MEDS: BuPROPion XL 300 MG TABCR PO SCH (09:06)
[2016-09-05] MEDS: PANTOprazole SOD 40 MG TAB PO SCH (09:06)
[2016-09-05] MEDS: INSULIN GLARGINE SOLOSTAR 100 UNITS/ML 3 ML PEN SC SCH (09:07)
[2016-09-05] MEDS: PrednisoLONE ACET 1% OP SUSP 5 ML BTL OPR SCH (09:07)
[2016-09-05] MEDS: INSULIN ASPART 100 UNITS/ML 3 ML PEN SC SCH ×2 (09:08→12:00)
[2016-09-05] MEDS: COMBIGAN~ORDER AWAITING ACTION SCH ×3 (09:08→16:00)
[2016-09-05 11:03] VITALS: BP 124/69; PULSE 69; TEMP 36.7; O2SAT 94
[2016-09-05 14:16] VITALS: BP 124/69; PULSE 69; TEMP 36.7; O2SAT 94
--- NOTE | 2016-09-05 14:18 | Discharge Summary ---
Discharge Summary Date of Service Sep 05, 2016. (Graciela Gutierrez PA-C) Discharge Summary Admission Date: Sep 02, 2016 at 16:32 Discharge Date: Sep 04, 2016 Discharge Disposition: Home Principal Diagnosis: Chest Pain Problems/Secondary Diagnoses: Diabetes type 2, hyperlipidemia, morbid obesity Immunizations: Have You Had Influenza Vaccine: N/A History of Tetanus Vaccine?: Yes Tetanus Immunization Date: May 29, 2001 History of Pneumococcal: Yes History of Hepatitis B Vaccine: Yes Procedures: ABDOMEN 2VIEW W/PA CHEST RTN 09/02/16 IMPRESSION: No evidence of bowel obstruction. No evidence of free air. CT ANGIOGRAM OF THE CHEST 09/02/16 IMPRESSION: 1. No CT evidence of acute pulmonary embolism 2. No evidence of focal pulmonary consolidation. CT ABD/PELVIS IV CONTRAST ONLY 09/02/16 IMPRESSION: 1. No acute intra-abdominal or pelvic findings 2. No evidence of bowel obstruction. No evidence of free air 3. No evidence of acute appendicitis. No evidence of acute diverticulitis. 2D Echocardiogram 09/03/16 * -- Conclusions -- * Left ventricular systolic function is normal. * Grade I diastolic dysfunction, (abnormal relaxation pattern). * No significant valvular disease Exercise Stress Test 09/03/16 and 09/05/16 IMPRESSION: 1. No evidence of ischemia at the workload achieved. 2. Overall poor exercise tolerance. 3. Production of index symptoms without objective evidence of ischemia. Consultations: Cardiology (Graciela Gutierrez PA-C) Procedures: lexiscan stress test: IMPRESSION: 1. Small mild inferior/inferolateral perfusion defect most consistent with potential artifact. Less likely, this represents right coronary artery/dominant circumflex distribution disease. In that situation, only mild/low risk ischemia with an estimated summed difference score of 3. 2. Normal left ventricular size and function. Ejection fraction 60%. No regional wall motion abnormalities. 3. Nondiagnostic Lexiscan ECG. (Chivo Aleman MD) Medication Reconciliation Continued Medications: Aspirin (Aspirin Ec) 81 Mg Tab 81 MG PO QPM Brimonidine Tartrate-Timolol M (Combigan) 1 Sunita Sunita 1 DROP OPR BID Bupropion (Wellbutrin-Xl) 300 Mg Tabcr 300 MG PO DAILY, TAB Desvenlafaxine Succinate (Pristiq) 50 Mg Tab 50 MG PO BID, TAB Esomeprazole Magnesium (Nexium) 40 Mg Capcr 40 MG PO QAM, 0 Refills Insulin Glargine (Lantus) 100 Unit/Ml Inj 15 SC QAM, VIAL Liraglutide (Victoza) 18 Mg/3 Ml Inj 0.18 MG INJ HS Losartan Potassium (Cozaar) 50 Mg Tab 50 MG PO HS, TAB Prednisolone Acetate (Ophth) (Pred Forte 1% Oph) 1 % Stella 1 DROPS OPR QAM, #10 ML Simvastatin (Zocor) 40 Mg Tab 40 MG PO HS, TAB Discharge Exam Pt evaluation today including: conversation w/ patient, conversation w/ family , physical exam, chart review, lab review, review of studies, review of inpatient medication list Pain: none PO Intake: ate breakfast, nothing by mouth for stress test Voiding: no voiding problems Additional Comments: Constitutional: No fever, chills, sweats, fatigue or weakness Eyes: No diplopia, no changes in vision ENT: No sore throat, tinnitus, or trouble swallowing Respiratory: No shortness of breath, No dyspnea at rest or on exertion, no cough or sputum Cardiovascular: No chest pain, palpitations, or flutter Abdomen: No pain, No constipation, No diarrhea, No nausea, No vomiting Musculoskeletal: No calf pain, No joint pain, No swelling Genitourinary : No dysuria or urinary frequency, No hematuria Neurologic: No numbness/tingling, no difficulty with ambulation, no sensory or motor deficits Psychiatric: No depression or anxiety symptoms Endocrine: No fatigue, No weight changes Integumentary: No itch, No rash (Graciela Gutierrez, PAShiraC) Objective Vital Signs Date Time Temp Pulse Resp B/P Pulse Ox O2 Delivery O2 Flow Rate FiO2 09/04/16 07:57 36.8 74 20 138/71 95 Room Air 09/04/16 04:02 Room Air 09/04/16 03:42 70 20 112/72 94 Room Air 09/04/16 00:04 Room Air 09/03/16 23:49 36.7 68 18 105/68 95 Room Air 09/03/16 20:11 36.9 74 16 120/76 95 Room Air 09/03/16 20:04 Room Air 09/03/16 16:00 95 Room Air 4/9/17 15:28 36.8 72 16 134/82 95 Room Air 09/03/16 12:30 Room Air 09/03/16 11:52 36.7 74 18 136/80 95 Room Air Physical Exam Notes: General: awake, alert, no apparent distress, + morbidly obese Head: Normocephalic, atraumatic ENT: PERRL, EOMI, no pharyngeal exudate, mucous membranes moist Chest: Clear to auscultation, on room air, no adventitious breath sounds Cardiac: Regular rate and rhythm, no murmur, no JVD, normal peripheral pulses, good capillary refill Abdominal: NABS x 4 quadrants, soft, nontender to palpation, no rebound, guarding or tenderness Extremities: Normal inspection, no peripheral edema or erythema, calfs nontender to palpation Psych: Normal mood and affect Neuro: AAO x 3, strength intact bilaterally and related 5/5, no motor deficits, speech is clear, no peripheral sensory deficits (Graciela Gutierrez PA-C) Hospital Course H&P per Juan Meyer M.D. HISTORY OF PRESENT ILLNESS: Ms. Lau is a 65-year-old female here who presents with a stuttering history of dyspnea, diaphoresis and nausea with exertion which has occurred over the last 4-6 weeks. This is checkered by her history of anxiety and depression. She, however, does have risk factors of dyslipidemia, obesity and diabetes with a distant history of smoking, which she quit 25 years ago. The patient says that she did seek care at her family medicine doctor's office who did a plain EKG in the office without remark. She, however, has been having increasing episodes. Her is with her, he said they were shopping at [employer] most recently, she was pushing the cart, she almost threw up, became diaphoretic and markedly dyspneic just pushing the cart around the store. This resolved with rest. She is recommended for observation for evaluation of this being an anginal equivalent PHYSICAL EXAMINATION: GENERAL: She is pleasant. She is morbidly obese. VITAL SIGNS: Her temperature is 37.2, pulse is 78, respirations 20, BP 134/70, O2 sat 98. Her BMI is 50. HEENT: PERRL, EOMI. Oropharynx clear. NECK: Without lymphadenopathy, JVD, thyromegaly. HEART: Regular without murmurs, clicks, rubs or gallops. LUNGS: Clear without wheezes or crackles. Good air movement. ABDOMEN: Obese, normoactive bowel sounds, soft. EXTREMITIES: Without cyanosis, clubbing or edema. NEUROLOGIC: She is awake, alert and appropriate. Cranial nerves II through XII are intact. Equal symmetrical strength and sensation. SKIN: Without lesions, growths, bruises or bleeding. PSYCHOLOGICAL: She is tearful and tremulous during my examination. Hospital course 65 yo female with history of obesity, high cholesterol, diabetes presenting with anginal like symptoms of diaphoresis and nausea with exertion. Resting and stress echocardiogram was completed during inpatient stay and the patient symptoms improved. Both of these studies were found to be essentially negative. Discussion was held with cardiology regarding for follow-up and they will see her in an outpatient adding in 2-4 weeks. Until then continue all other medication as directed. Patient was educated on checking blood glucose regularly to avoid hypoglycemia. Follow-up as already scheduled with PCP tomorrow, 09/06/16. Chest pain rule out Anginal equivalent? normal troponin, normal EKG - exercise treadmill on 09/03/16; patient was only able to complete 3 minutes on the treadmill - was normal - Nuclear stress test (Lexiscan) completed on 09/05/16: Showed small defect but likely motion artifact per Sacha Rich MD. in cardiology - no EKG changes - resting echo was normal - continue aspirin Hyperlipidemia: - change Zocor to Lipitor since LDL high at 146 despite therapy DM: sugars well controlled on Lantus, Victoza - Patient has some symptoms of nausea which may be related to hypoglycemia. - Discussion was held with the patient regarding checking her glucose as an outpatient on a regular basis. She already has a follow-up with her PCP scheduled for this Sunday Morbid Obesity - BMI= 49.9: says she has lost 60 pounds recently - Pt will need diet and exercise- encouraged Depression/anxiety -Patient was recently transitioned off of Lexapro to Pristiq, continue wellbutrin - DVT prophylaxis: lovenox Disposition: patient from home, discharged to home today. Total Time Spent: Greater than 30 minutes This includes examination of the patient, discharge planning, medication reconciliation, and communication with other providers. (Graciela Gutierrez PA-C) Attending Discharge Note & Attestation: Pt seen/examined, chart reviewed, care plan d/w JAZMIN Gutierrez. I agree w/ the thao components of her discharge summary. 65yo diabetic female who presented with several weeks of intermittent dyspnea, nausea, and diaphoresis. No discrete chest pain. Also with fatigue. During this time period she mentioned she had transitioned from one antidepressant/anti-anxiety medication to another. Cardiac enzymes and telemetry were normal during her stay. Lipid profile showed LDL of 148 (unclear how compliant she had been with her statin agent). Resting echo and lexiscan nuclear stress test were normal (see full report above ). Cardiology felt that the one area of abnormality was probably artifact. Discharge exam: gen - obese, nad heart - RRR, s1, s2, no murmur lungs - CTA b/l abd - soft, NT, ND, BS+ ext - no edema The exact etiology of her symptoms was unclear. It is possible that she had withdrawal from her SSRI giving her some of the aforementioned symptoms. I counseled the patient, however, that if the above symptoms persisted she would need referral back to cardiology for consideration of heart catheterization. She voiced understanding. Chivo Aleman MD (Chivo Aleman MD) Discharge Instructions Please refer to the electronic Patient Visit Report (Discharge Instructions) for additional information. (Graciela Gutierrez PA-C) Follow-Up Follow up with your Primary Care Provider within 1 week. Follow-up with cardiology within 2-4 weeks (Graciela Gutierrez PA-C) Additional Copies To Ben Álvarez DO
--- NOTE | 2016-09-05 14:46 | MYOCARDIAL PERFUSION SCAN ---
NUCLEAR STRESS TEST STUDY REQUESTED BY: Juan Meyer MD PATIENT AGE: 65. STUDY TITLE: One-day nuclear medicine technetium-99m Cardiolite myocardial perfusion scan. INDICATIONS FOR STUDY: Chest pain. ECHOCARDIOGRAM: Baseline EKG shows normal sinus rhythm with no significant ST abnormalities with a ventricular rate of 73. LEXISCAN ECHOCARDIOGRAM: Nondiagnostic EKG wen from 69-93 (60% of maximum predicted heart rate). There were no Lexiscan-induced arrhythmias or EKG changes. TECHNIQUE: For the stress portion of the study, 24.0 mCi of technetium-99m Cardiolite IV was injected at 8:00 a.m. on 09/05/2016. Thirty minutes following the injection, imaging of the heart was performed in multiple projections. For the rest portion of the study, 24.2 mCi of technetium-99m Cardiolite was injected IV at 12:00 a.m. One hour following the injection, imaging of the heart was performed in the same projections. FINDINGS: Raw images were reviewed in detail. There was suggestion of a lateral breast shadow on both stress and rest. There was mild diaphragmatic attenuation. There was mild gut uptake impacting the inferior imaging borders of the heart, more so on stress than on rest. No significant extra cardiac pathologic uptake. Short axis, long axis, vertical long axis images were reviewed in detail. There was no visual TID. There was a small mild perfusion defect involving the mid, inferior/inferolateral brown and the apical inferior wall. This defect was partially reversible with a summed difference score of approximately 3. LV was normal size with an end-diastolic volume of 69. LV function was normal with an EF of 60%. There were no regional wall motion abnormalities. IMPRESSION: 1. Small mild inferior/inferolateral perfusion defect most consistent with potential artifact. Less likely, this represents right coronary artery/dominant circumflex distribution disease. In that situation, only mild/low risk ischemia with an estimated summed difference score of 3. 2. Normal left ventricular size and function. Ejection fraction 60%. No regional wall motion abnormalities. 3. Nondiagnostic Lexiscan ECG. MTDD
== END 2016-09-05 16:47 | disposition home or self-care (01) ==
LOC: ENRESERVDT → ENRESERVTM → C.EDB 12:15 → C.MED 16:32
PROVIDERS: ADMIT Internal Medicine; ATTEND Internal Medicine
DX: R07.89 Other chest pain (principal); E11.9 Type 2 diabetes mellitus without complications; E78.5 Hyperlipidemia, unspecified; E66.01 Morbid (severe) obesity due to excess calories; Z68.42 Body mass index [BMI] 45.0-49.9, adult; Z83.3 Family history of diabetes mellitus; Z82.49 Family history of ischemic heart disease and other diseases of the circulatory system; Z79.82 Long term (current) use of aspirin; Z87.891 Personal history of nicotine dependence; F32.9 Major depressive disorder, single episode, unspecified; Z79.899 Other long term (current) drug therapy

== ENCOUNTER 2016-09-15 15:15 | Emergency (ER) | payer BC ==
[~2016-09-15] VITALS: Ht 165.1 cm; Wt 138.3 kg
[~2016-09-15 15:15] MED LIST changes: +DESV50TA2 PO; -ESCI1TAB10 PO
[2016-09-15 15:24] VITALS: TEMP 37.6; Ht 165.1 cm; Wt 138.3 kg
[2016-09-15] MEDS ORDERED: ALUMINUM/MAGNESIUM SUSP 30 ML UDC PO STA (15:38)
--- NOTE | 2016-09-15 15:50 | EMERGENCY ROOM VISIT NOTE ---
History Report prepared by [place]: Selvin Schulz Under the Supervision of: Dr. Darek Mensah D.O. First contact with patient: 15:28 Chief Complaint: DIZZY Stated Complaint: STOMACH UPSET,SWEATING,DIZZINESS History of Present Illness The patient is a 65 year old female who presents to the Emergency Room with complaints of persistent dizziness for more than one week. The patient has also been experiencing nausea, diaphoresis, and epigastric discomfort. Her symptoms are worse with minor exertion, including walking. She was in the ED last week with these symptoms. She had negative stress tests but was not catheterized. The patient saw her doctor today, who referred her to the ED. The patient is on Nexium for a history of GERD and notes that her current symptoms do not feels like GERD. The patient denies chest pain, shortness of breath, or leg pain. The patient is also on Simvastatin, Losartan, Wellbutrin, and Pristiq. She started the Pristiq one month ago. The patient denies tobacco or alcohol use. She is s/ p cholecystectomy. Source of History: patient Onset: greater than one week Position: other (global) Quality: other (dizziness) Timing: other (persistent) Modifying Factors (Relieving): exertion Associated Symptoms: + diaphoresis, + nausea, No SOB, No chest pain Review of Systems See HPI for pertinent positives & negatives. A total of 10 systems reviewed and were otherwise negative. Past Medical & Surgical Medical Problems: (1) Chest pain (2) Depression (3) Diabetes Surgical Problems: (1) S/P cholecystectomy (2) S/P knee replacement (3) S/P lumbar spinal fusion Family History Cancer Diabetes mellitus Heart disease Hypertension Social History Smoking Status: Never Smoker Alcohol Use: none Drug Use: none Marital Status: Housing Status: lives with family Occupation Status: unemployed Current/Historical Medications Scheduled Aspirin (Aspirin Ec), 81 MG PO QPM Brimonidine Tartrate-Timolol M (Combigan), 1 DROP OPR BID Bupropion (Wellbutrin-Xl), 300 MG PO HS Desvenlafaxine Succinate (Pristiq), 50 MG PO BID Esomeprazole Magnesium (Nexium), 40 MG PO QAM Insulin Glargine (Lantus), 15 UNITS SC QAM Liraglutide (Victoza), 18 MG INJ HS Losartan Potassium (Cozaar), 50 MG PO HS Prednisolone Acetate (Ophth) (Pred Forte 1% Oph), 1 DROPS OPR QAM Simvastatin (Zocor), 40 MG PO HS Allergies Coded Allergies: Erythromycin (Verified Adverse Reaction, Unknown, UPSET STOMACH, 09/15/16) Physical Exam Vital Signs Date Time Temp Pulse Resp B/P Pulse Ox O2 Delivery O2 Flow Rate FiO2 09/15/16 18:09 75 16 126/85 98 09/15/16 16:35 76 18 137/86 95 Room Air 09/15/16 15:48 80 09/15/16 15:24 37.6 88 16 168/72 95 Room Air Physical Exam GENERAL: Patient is awake, alert, and in no acute distress. Patient is resting comfortably and showing no signs of anxiety EYES: The conjunctivae are clear. The pupils are round and reactive. EARS, NOSE, MOUTH AND THROAT: The nose is without any evidence of any deformity. Mucous membranes are moist tongue is midline NECK: The neck is nontender and supple. RESPIRATORY: Normal respiratory effort is noted there is no evidence of wheezing rhonchi or rales CARDIOVASCULAR: Regular rate and rhythm noted there no murmurs rubs or gallops normal S1 normal S2 GASTROINTESTINAL: The abdomen is soft. Bowel sounds are present in all quadrants. Abdomen is nontender MUSCULOSKELETAL/EXTREMITIES: There is no evidence of gross deformity full range of motion is noted in the hips and shoulders SKIN: There is no obvious evidence of any rash. There are no petechiae, pallor or cyanosis noted. Trace pedal edema bilaterally. NEUROLOGIC: Patient is awake alert and oriented x3. Medical Decision & Procedures ER Provider Diagnostic Interpretation: X-ray results as stated below per interpretation by me and the radiologist. CHEST ONE VIEW PORTABLE CLINICAL HISTORY: ABDOMINAL PAIN/GI pain COMPARISON STUDY: No previous studies for comparison. FINDINGS: The bones soft tissues and hemidiaphragms are normal. The cardiomediastinal silhouette is normal. The lungs are clear. The pulmonary vasculature is normal. IMPRESSION: Negative chest. Electronically signed by: Nahid Oliva M.D. 09/15/2016 4:01 PM Dictated Date/Time: 09/15/2016 4:01 PM Laboratory Results 09/15/16 15:50 Red Blood Count 5.02, Mean Corpuscular Volume 85.1, Mean Corpuscular Hemoglobin 28.7, Mean Corpuscular Hemoglobin Concent 33.7, Mean Platelet Volume 8.9, Neutrophils (%) (Auto) 57.7, Lymphocytes (%) (Auto) 34.2, Monocytes (%) (Auto) 7.6, Eosinophils (%) (Auto) 0.1, Basophils (%) (Auto) 0.3, Neutrophils # (Auto) 3.96, Lymphocytes # (Auto) 2.35, Monocytes # (Auto) 0.52, Eosinophils # (Auto) 0.01, Basophils # (Auto) 0.02 09/15/16 15:50 09/15/16 16:44 Test 09/15/16 15:50 09/15/16 16:44 White Blood Count 6.87 K/uL (4.8-10.8) Red Blood Count 5.02 M/uL (4.2-5.4) Hemoglobin 14.4 g/dL (12.0-16.0) Hematocrit 42.7 % (37-47) Mean Corpuscular Volume 85.1 fL (80-100) Mean Corpuscular Hemoglobin 28.7 pg (25-34) Mean Corpuscular Hemoglobin Concent 33.7 g/dl (32-36) Platelet Count 229 K/uL (130-400) Mean Platelet Volume 8.9 fL (7.4-10.4) Neutrophils (%) (Auto) 57.7 % Lymphocytes (%) (Auto) 34.2 % Monocytes (%) (Auto) 7.6 % Eosinophils (%) (Auto) 0.1 % Basophils (%) (Auto) 0.3 % Neutrophils # (Auto) 3.96 K/uL (1.4-6.5) Lymphocytes # (Auto) 2.35 K/uL (1.2-3.4) Monocytes # (Auto) 0.52 K/uL (0.11-0.59) Eosinophils # (Auto) 0.01 K/uL (0-0.5) Basophils # (Auto) 0.02 K/uL (0-0.2) RDW Standard Deviation 44.1 fL (36.4-46.3) RDW Coefficient of Variation 14.2 % (11.5-14.5) Immature Granulocyte % (Auto) 0.1 % Immature Granulocyte # (Auto) 0.01 K/uL (0.00-0.02) Urine Color YELLOW Urine Appearance CLEAR (CLEAR) Urine pH 6.0 (4.5-7.5) Urine Specific [place] 1.020 (1.000-1.030) Urine Protein NEG (NEG) Urine Glucose (UA) NEG (NEG) Urine Ketones NEG (NEG) Urine Occult Blood TRACE (NEG) Urine Nitrite NEG (NEG) Urine Bilirubin NEG (NEG) Urine Urobilinogen NEG (NEG) Urine Leukocyte Esterase TRACE (NEG) Urine WBC (Auto) 5-10 /hpf (0-5) Urine RBC (Auto) 5-10 /hpf (0-4) Urine Hyaline Casts (Auto) 1-5 /lpf (0-5) Urine Epithelial Cells (Auto) >30 /lpf (0-5) Urine Bacteria (Auto) NEG (NEG) Anion Gap 7.0 mmol/L (3-11) Est Creatinine Clear Calc Drug Dose 96.4 ml/min Estimated GFR () 88.4 Estimated GFR (Non- 76.3 BUN/Creatinine Ratio 16.4 (10-20) Calcium Level 8.4 mg/dl (8.5-10.1) Total Bilirubin 0.6 mg/dl (0.2-1) Alanine Aminotransferase (ALT/SGPT) 19 U/L (12-78) Alkaline Phosphatase 67 U/L (45-117) Creatine Kinase MB < 0.5 ng/ml (0.5-3.6) Creatine Kinase MB Ratio (0-3.0) Troponin I < 0.015 ng/ml (0-0.045) Total Protein 6.5 gm/dl (6.4-8.2) Albumin 3.5 gm/dl (3.4-5.0) Lipase 125 U/L (73-393) Prothrombin Time 10.0 SECONDS (9.0-12.0) Prothromb Time International Ratio 0.9 (0.9-1.1) Activated Partial Thromboplast Time 25.7 SECONDS (21.0-31.0) Partial Thromboplastin Ratio 1.0 Direct Bilirubin 0.2 mg/dl (0-0.2) Aspartate Amino Transf (AST/SGOT) 9 U/L (15-37) Total Creatine Kinase 33 U/L (26-192) Laboratory results per my review. Medications Administered Medications (Trade) Dose Ordered Sig/[place] Route Start Time Stop Time Status Last Admin Dose Admin Al Hydroxide/Mg Hydroxide (Maalox Susp) 30 ml NOW STAT PO 09/15/16 15:38 09/15/16 15:40 DC 09/15/16 15:45 30 ML ECG Indication: diaphoresis, nausea, other (dizzy) Rate (beats per minute): 78 Rhythm: normal sinus Findings: no acute ischemic change, no ectopy Comparison ECG Date: 09/04/16 Change: no significant change ED Course 1535: The patient was evaluated in room C12b. A complete history and physical examination were performed. 1538: Maalox 30 ml PO. 1748: Reassessed the patient. Discussed the findings with her. She verbalized understanding and agreement. The patient is ready for discharge. Medical Decision Prior records/ancillary studies reviewed. Triage Nursing notes reviewed. The patient's history was concerning for chest pain. Differential diagnosis: Etiologies such as cardiac ischemia, aortic dissection, pulmonary embolism, pneumonia, pneumothorax, musculoskeletal, infections, pericarditis, myocarditis , esophageal rupture, gastrointestinal, as well as others were entertained. The patient is a 65-year-old female who presented to the emergency department for an evaluation of epigastric discomfort and dizziness. The patient was seen in our facility earlier this month for similar complaints. At that time she was admitted to the hospital and had a cardiac workup. The cardiac workup did not reveal any acute ischemia. The patient was seen by her primary care physician today and was sent back to the emergency department because of ongoing symptoms. I discussed her presentation with her primary physician group. They were concerned that she may have had another cardiac episode. I did an emergency department cardiac workup which included EKG and cardiac biomarkers. I discussed the patient's laboratory radiographic studies with her. I also discussed the limitations of the emergency department workup for chest pain with her. I discussed her case with the on-call [place] timber cutter. At this time he is recommended a follow-up appointment with them for further workup which may include cardiac event monitor and further testing for ischemia. The patient was encouraged to rest and avoid any strenuous activity. She was also encouraged to follow-up with her family doctor and return to the emergency department immediately if symptoms change worsen or the need arises. Impression Primary Impression: Epigastric pain Additional Impression: Dizziness Scribe Attestation The scribe's documentation has been prepared under my direction and personally reviewed by me in its entirety. I confirm that the note above accurately reflects all work, treatment, procedures, and medical decision making performed by me. Departure Information Dispostion Home / Self-Care Referrals Ben Álvarez DO (PCP) Forms HOME CARE DOCUMENTATION FORM, IMPORTANT VISIT INFORMATION Patient Instructions ED Chest Pain Atypical Unkn Cause, ED Palpitations, My [facility] Additional Instructions Continue all medications as prescribed. Rest and avoid any strenuous activity. Call the timber cutter to schedule follow up appointment. You may require further studies or possibly a loop recorder to evaluate for any dysrhythmia or abnormal heart rhythm. Return to the emergency apartment immediately if symptoms change worsen or the need arises. Problem Qualifiers
[2016-09-15 16:02] LABS: BASO % 0.3 %; BASO ABS # 0.02 K/uL (0-0.2); COMPLETE YES; EOS % 0.1 %; HEMATOCRIT 42.7 % (37-47); IG% 0.1 %; LYMPH % 34.2 %; LYMPH ABS # 2.35 K/uL (1.2-3.4); MEAN CELL VOLUME 85.1 fL (80-100); MEAN CORPUSCULAR HEMOGLOBIN 28.7 pg (25-34); MEAN CORPUSCULAR HGB CONC 33.7 g/dl (32-36); MEAN PLATELET VOLUME 8.9 fL (7.4-10.4); MONO % 7.6 %; NEUT % 57.7 %; PLATELET COUNT 229 K/uL (130-400); RED BLOOD COUNT 5.02 M/uL (4.2-5.4); WHITE BLOOD COUNT 6.87 K/uL (4.8-10.8)
--- NOTE | 2016-09-15 16:03 | DIAGNOSTIC IMAGING REPORT ---
CHEST ONE VIEW PORTABLE CLINICAL HISTORY: ABDOMINAL PAIN/GI pain COMPARISON STUDY: No previous studies for comparison. FINDINGS: The bones soft tissues and hemidiaphragms are normal. The cardiomediastinal silhouette is normal. The lungs are clear. The pulmonary vasculature is normal. IMPRESSION: Negative chest. Electronically signed by: Nahid Oliva M.D. 09/15/2016 4:01 PM Dictated Date/Time: 09/15/2016 4:01 PM
[2016-09-15 16:38] LABS: ALKALINE PHOSPHATASE 67 U/L (45-117); ALT/SGPT 19 U/L (12-78); BLOOD UREA NITROGEN 13 mg/dl (7-18); BUN/CREATININE RATIO 16.4 (10-20); CALCIUM 8.4 mg/dl (8.5-10.1); CARBON DIOXIDE 25 mmol/L (21-32); CHLORIDE 106 mmol/L (98-107); GLUCOSE 109 mg/dl (70-99); SODIUM 138 mmol/L (136-145)
[2016-09-15 16:46] LABS: URINE APPEARANCE CLEAR (CLEAR); URINE BILIRUBIN NEG (NEG); URINE COLOR YELLOW; URINE EPITHELIAL CELL AUTO >30 /lpf (0-5); URINE NITRITE NEG (NEG); UROBILINOGEN NEG (NEG)
[2016-09-15 16:47] LABS: MANUAL MICROSCOPIC REQUIRED? NO; REVIEW REQ? NO
[2016-09-15 17:11] LABS: INR 0.9 (0.9-1.1)
[2016-09-15 17:14] LABS: POTASSIUM 4.5 mmol/L (3.5-5.1)
[2016-09-15 18:09] VITALS: BP 126/85; PULSE 75; O2SAT 98
== END 2016-09-15 18:11 | disposition home or self-care (01) ==
LOC: C.EDB 15:17 → C.EDC 18:11
DX: R10.13 Epigastric pain (principal); R42 Dizziness and giddiness; F32.9 Major depressive disorder, single episode, unspecified; E11.9 Type 2 diabetes mellitus without complications; Z96.659 Presence of unspecified artificial knee joint; Z98.1 Arthrodesis status; Z90.49 Acquired absence of other specified parts of digestive tract; Z79.82 Long term (current) use of aspirin; Z79.899 Other long term (current) drug therapy; Z88.3 Allergy status to other anti-infective agents; Z80.9 Family history of malignant neoplasm, unspecified; Z83.3 Family history of diabetes mellitus; Z82.49 Family history of ischemic heart disease and other diseases of the circulatory system

== ENCOUNTER → 2017-01-25 | Outpatient (CLI) | payer BC ==
[2017-01-25 14:37] LABS: ALT/SGPT 20 U/L (12-78); BLOOD UREA NITROGEN 18 mg/dl (7-18); BUN/CREATININE RATIO 19.6 (10-20); CALCIUM 9.2 mg/dl (8.5-10.1); CARBON DIOXIDE 30 mmol/L (21-32); CHLORIDE 102 mmol/L (98-107); CHOLESTEROL 164 mg/dl (0-200); GLUCOSE 140 mg/dl (70-99); POTASSIUM 5.1 mmol/L (3.5-5.1); SODIUM 138 mmol/L (136-145)
[2017-01-25 14:40] LABS: ALB/GLOB RATIO 1.3 (0.9-2); ALKALINE PHOSPHATASE 86 U/L (45-117); AST/SGOT 19 U/L (15-37); CHOLESTEROL/HDL RATIO 2.4; HDL CHOLESTEROL 68 mg/dl; LDL CHOLESTEROL CALCULATED 78 mg/dl; TRIGLYCERIDES 89 mg/dl (0-150); VERY LOW DENSITY LIPOPROT CALC 18 mg/dl
[2017-01-26 06:40] LABS: ESTIMATED AVERAGE GLUCOSE 143 mg/dl; HA1C FLAG Normal (Normal)
== END | disposition home or self-care (01) ==
LOC: C.LABSPEC 13:25
PROVIDERS: ATTEND Family Medicine
DX: E11.9 Type 2 diabetes mellitus without complications (principal); Z12.72 Encounter for screening for malignant neoplasm of vagina

== ENCOUNTER → 2017-01-25 | Outpatient (CLI) | payer BC | END | disposition home or self-care (01) | LOC: C.PAPS 14:24 | PROVIDERS: ATTEND Family Medicine | DX: Z12.72 Encounter for screening for malignant neoplasm of vagina (principal) ==

== ENCOUNTER → 2017-06-01 | Day surgery (SDC) | payer BC ==
[2017-05-10 09:58] VITALS: Ht 165.1 cm; Wt 148.6 kg
[~2017-06-01] VITALS: Ht 165.1 cm; Wt 148.6 kg
[~2017-06-01] MED LIST changes: +ASPCH81X PO; -ASPI81TA28 PO; +CLAR500T38 PO; -DESV50TA2 PO; +ESCI1TAB10 PO; +HYDR-389 PO; +LIDOCAINE HCL 2% 2 ML VIAL (20MG/ML) ONE; -LIRA18IN INJ; +LIRA18IN SC; +MONT1TAB3 PO; +PROPOFOL IV EMULSION 10 MG/ML 20 ML VIAL IV ONE
--- NOTE | 2017-06-01 14:04 | Endo History and Physical ---
History & Physical Date of Service: Jun 01, 2017. Chief Complaint: Anal pain Referring Physician: Dr. Ben Álvarez History of Present Illness for colonoscopy Past Medical History Diabetes, Reflux, High Cholesterol, Sleep Apnea, Hypertension Past Surgical History Hx Cardiac Surgery: No Hx Internal Defibrillator: No Hx Pacemaker: No Hx Abdominal Surgery: Yes (OLIVER) Hx of Implantable Prosthesis: No Hx Post-Op Nausea and Vomiting: No Hx Cancer Surgery: No Hx Thoracic Surgery: No Hx Orthopedic: Yes (RT/LEFT CTR, L TKA, LUMBAR FUSION) Hx Urinary Tract Surgery: No Family History None Social History Smoking Status: Former Smoker Hx Substance Use: No Hx Alcohol Use: Yes (RARELY) Allergies Coded Allergies: Erythromycin (Verified Adverse Reaction, Unknown, UPSET STOMACH, 05/10/17) Current Medications Reported Home Medications Medications Dose Route/Sig Max Daily Dose Days Date Category Biaxin (Clarithromycin) 500 Mg Tab 2 Tab PO DAILY 05/10/17 Reported Combigan (Brimonidine Tartrate-Timolol M) 1 Sunita Sunita 1 Drop OPR BID 05/10/17 Reported Nexium (Esomeprazole Magnesium) 40 Mg Capcr 40 Mg PO QAM 05/10/17 Reported Lexapro (Escitalopram Oxalate) 20 Mg Tab 20 Mg PO QAM 05/10/17 Reported Lantus (Insulin Glargine) 100 Unit/Ml Inj 15 Units SC QAM 05/10/17 Reported Victoza (Liraglutide) 18 Mg/3 Ml Inj 1 Dose SC QPM 05/10/17 Reported Aspirin Chewable (Aspirin) 81 Mg Chew 81 Mg PO HS 05/10/17 Reported Wellbutrin-Xl (Bupropion HCl) 300 Mg Tabcr 300 Mg PO HS 05/10/17 Reported Zocor (Simvastatin) 40 Mg Tab 40 Mg PO HS 05/10/17 Reported Singulair (Montelukast Sodium) 10 Mg Tab 10 Mg PO HS 05/10/17 Reported Cozaar (Losartan Potassium) 50 Mg Tab 50 Mg PO QPM 05/10/17 Reported Atarax (Hydroxyzine Hcl) 10 Mg Tab 10 Mg PO TID PRN 05/10/17 Reported Pred Forte 1% Oph (Prednisolone Acetate (Ophth)) 1 % Stella 1 Drops OPR QAM 09/02/16 Reported Vital Signs Weight (Kilograms): 148.64 Height (Feet): 5 Height (Inches): 5 Date Time Temp Pulse Resp B/P (MAP) Pulse Ox O2 Delivery O2 Flow Rate FiO2 06/01/17 13:03 37.3 83 20 151/76 (101) 95 Room Air Physical Exam General Appearance: + obese Respiratory/Chest: Respiratory effort: no dyspnea Cardiovascular: Heart Auscultation: RRR Abdomen: Inspection & Palpation: soft Assessment and Plan anal pain for colonoscopy
--- NOTE | 2017-06-01 14:36 | Discharge Instructions ---
Endoscopy Patient Instructions Date / Procedure(s) Performed Jun 01, 2017. Colonoscopy Allergy Information Coded Allergies: Erythromycin (Verified Adverse Reaction, Unknown, UPSET STOMACH, 05/10/17) Discharge Date / Findings Jun 01, 2017. polyps, diverticulosis, hemorrhoids Medication Instructions Restart Stopped Medication(s): resume meds Reported Home Medications Medications Dose Route/Sig Max Daily Dose Days Date Category Biaxin (Clarithromycin) 500 Mg Tab 2 Tab PO DAILY 05/10/17 Reported Combigan (Brimonidine Tartrate-Timolol M) 1 Sunita Sunita 1 Drop OPR BID 05/10/17 Reported Nexium (Esomeprazole Magnesium) 40 Mg Capcr 40 Mg PO QAM 05/10/17 Reported Lexapro (Escitalopram Oxalate) 20 Mg Tab 20 Mg PO QAM 05/10/17 Reported Lantus (Insulin Glargine) 100 Unit/Ml Inj 15 Units SC QAM 05/10/17 Reported Victoza (Liraglutide) 18 Mg/3 Ml Inj 1 Dose SC QPM 05/10/17 Reported Aspirin Chewable (Aspirin) 81 Mg Chew 81 Mg PO HS 05/10/17 Reported Wellbutrin-Xl (Bupropion HCl) 300 Mg Tabcr 300 Mg PO HS 05/10/17 Reported Zocor (Simvastatin) 40 Mg Tab 40 Mg PO HS 05/10/17 Reported Singulair (Montelukast Sodium) 10 Mg Tab 10 Mg PO HS 05/10/17 Reported Cozaar (Losartan Potassium) 50 Mg Tab 50 Mg PO QPM 05/10/17 Reported Atarax (Hydroxyzine Hcl) 10 Mg Tab 10 Mg PO TID PRN 05/10/17 Reported Pred Forte 1% Oph (Prednisolone Acetate (Ophth)) 1 % Stella 1 Drops OPR QAM 09/02/16 Reported Provider Instructions Activity Restrictions - No exercising or heavy lifting for 24 hours. - Do not drink alcohol the day of the procedure. - Do not drive a car or operate machinery until the day after the procedure. - Do not make any important decisions or sign important papers in 24 hours after the procedure. Following Day: - Return to full activity which may include returning to work/school. Diet Start your diet with liquids and light foods (jello, soup, juice, toast). Then eat your usual diet if not nauseated. Treatment For Common After Affects For mild abdominal pain, bloating, or excessive gas: - Rest - Eat lightly - Lie on right side Follow-Up Information Follow-up with Dr. Ben Álvarez as scheduled Anesthesia Information What You Should Know You have had a procedure that required some medicine to reduce anxiety and discomfort. This treatment is called moderate sedation. After receiving the treatment, you may be sleepy, but you will be able to breathe on your own. The effects of the treatment may last for several hours. Follow these instructions along with Activity/Diet recommendations noted above: * Do NOT do anything where dizziness or clumsiness would be dangerous. * Rest quietly at home today, then you can be up and about tomorrow. * Have a responsible person stay with you the rest of today. * You may have had an I.V. today. If so, you may take the dressing off later today. Recommendations Call your doctor if: * Trouble breathing * Continuous vomiting for more than 24 hours * Temperature above 101 degrees * Severe abdominal pain or bloating * Pain not relieved by pain medicine ordered * There is increased drainage or redness from any incision * A large amount of rectal bleeding greater than 2-3 tablespoons. (If you had a polyp/s removed or have hemorrhoids, a small amount of blood - from the rectum is to be expected.) * You have any unanswered questions or concerns. IN THE EVENT OF A SERIOUS EMERGENCY, GO TO THE NEAREST EMERGENCY ROOM Your discharge instructions were prepared by provider Neal Michelle. Patient Instructions Signature Page Simona Lau Patient (or Guardian) Signature/Date: I have read and understand the instructions given to me by my caregivers. Caregiver/RN/Doctor Signature/Date: The above-named patient and/or guardian has received patient instructions on this date. + Original Patient Signature Page (only) stays with chart. Please make copy for patient.
--- NOTE | 2017-06-01 14:40 | GI REPORT ---
Procedure Date: 06/01/2017 2:04 PM Procedure: Colonoscopy Indications: Pelvic pain Medicines: Propofol total dose 280 mg IV, Lidocaine 40 mg IV Complications: No immediate complications. Estimated Blood Loss: Estimated blood loss was minimal. Procedure: Pre-Anesthesia Assessment: - Prior to the procedure, a History and Physical was performed, and patient medications, allergies and sensitivities were reviewed. The patient's tolerance of previous anesthesia was reviewed. - The risks and benefits of the procedure and the sedation options and risks were discussed with the patient. All questions were answered and informed consent was obtained. After I obtained informed consent, the scope was passed under direct vision. Throughout the procedure, the patient's blood pressure, pulse, and oxygen saturations were monitored continuously. The Scope was introduced through the anus and advanced to the cecum, identified by appendiceal orifice and ileocecal valve. The colonoscopy was performed without difficulty. The patient tolerated the procedure well. The quality of the bowel preparation was excellent. Findings: Non-bleeding internal hemorrhoids were found during endoscopy. The hemorrhoids were mild. A few diverticula were found in the sigmoid colon. A 4 mm polyp was found in the cecum. The polyp was sessile. The polyp was removed with a cold snare. Resection and retrieval were complete. Estimated blood loss was minimal. A 7 mm polyp was found in the hepatic flexure. The polyp was sessile. The polyp was removed with a hot snare. Resection and retrieval were complete. Estimated blood loss: none. A 9 mm polyp was found in the hepatic flexure. The polyp was sessile. The polyp was removed with a hot snare. Resection and retrieval were complete. Estimated blood loss: none. A 4 mm polyp was found in the sigmoid colon. The polyp was sessile. The polyp was removed with a cold snare. Resection and retrieval were complete. Estimated blood loss was minimal. Impression: - Non-bleeding internal hemorrhoids. - Diverticulosis in the sigmoid colon. - One 4 mm polyp in the cecum, removed with a cold snare. Resected and retrieved. - One 7 mm polyp at the hepatic flexure, removed with a hot snare. Resected and retrieved. - One 9 mm polyp at the hepatic flexure, removed with a hot snare. Resected and retrieved. - One 4 mm polyp in the sigmoid colon, removed with a cold snare. Resected and retrieved. Recommendation: - Discharge patient to home (ambulatory). - Continue present medications. - Await pathology results. - Return to primary care physician TIFFN. Neal Michelle M.D. Neal Michelle MD 06/01/2017 2:40:26 PM This report has been signed electronically. Note Initiated On: 06/01/2017 2:04 PM I attest to the content of the Intraoperative Record and orders documented therein, exceptions below
--- NOTE | 2017-06-01 14:43 | Anesthesiology Progress Note ---
Anesthesia Post Op Note Date & Time Jun 01, 2017 at 14:43 Vital Signs Pain Intensity: 0 Vital Signs Past 12 Hours Date Time Temp Pulse Resp B/P (MAP) Pulse Ox O2 Delivery O2 Flow Rate FiO2 06/01/17 13:03 37.3 83 20 151/76 (101) 95 Room Air Notes Mental Status: alert / awake / arousable, participated in evaluation Pt Amnestic to Procedure: Yes Nausea / Vomiting: adequately controlled Pain: adequately controlled Airway Patency, RR, SpO2: stable & adequate BP & HR: stable & adequate Hydration State: stable & adequate Anesthetic Complications: no major complications apparent
[2017-06-01 15:11] VITALS: BP 159/92; PULSE 74; O2SAT 99
== END | disposition home or self-care (01) ==
LOC: C.GI 12:26
PROVIDERS: ATTEND Internal Medicine Gastroenterology
DX: K62.89 Other specified diseases of anus and rectum (principal); R10.2 Pelvic and perineal pain; K64.8 Other hemorrhoids; K57.30 Diverticulosis of large intestine without perforation or abscess without bleeding; D12.0 Benign neoplasm of cecum; D12.3 Benign neoplasm of transverse colon; E11.9 Type 2 diabetes mellitus without complications; G47.33 Obstructive sleep apnea (adult) (pediatric); Z88.1 Allergy status to other antibiotic agents; Z90.49 Acquired absence of other specified parts of digestive tract; Z85.828 Personal history of other malignant neoplasm of skin; Z96.652 Presence of left artificial knee joint; Z98.890 Other specified postprocedural states; E66.01 Morbid (severe) obesity due to excess calories; Z68.43 Body mass index [BMI] 50.0-59.9, adult; Z87.891 Personal history of nicotine dependence; Z79.4 Long term (current) use of insulin; Z79.82 Long term (current) use of aspirin

== ENCOUNTER 2017-06-23 16:41 | Emergency (ER) | payer BC ==
[~2017-06-23] VITALS: Ht 165.1 cm; Wt 152.5 kg
[~2017-06-23 16:41] MED LIST changes: -LIDOCAINE HCL 2% 2 ML VIAL (20MG/ML) ONE; -PROPOFOL IV EMULSION 10 MG/ML 20 ML VIAL IV ONE
[2017-06-23 16:46] VITALS: TEMP 37; Ht 165.1 cm; Wt 152.5 kg
--- NOTE | 2017-06-23 17:01 | EMERGENCY ROOM VISIT NOTE ---
History Report prepared by Charlotte: Caleb Almanza Under the Supervision of: Dr. Ro Bone D.O. First contact with patient: 16:51 Chief Complaint: HEADACHE Stated Complaint: HEADACHE WON'T GO AWAY History of Present Illness The patient is a 66 year old female who presents to the Emergency Room with complaints of a persistent headache that started around 0400 this morning. She says that she has been having a sinus infection for 2 weeks, and was seen by Dr. Wilkinson of ENT 3 days ago, and was told that she should take an antibiotic, but since the patient had been on 3 courses of antibiotics last month for previous sinus infections, the patient decided against another antibiotic. The patient was prescribed a medication for her sinus infection, which she started 2 days ago. The patient notes that she has been coughing up yellow sputum during her sinus infection, but the discharge is not coming out of her nose. She adds that she has a bit short of breath, with some dental pain. She says she then was woken up this morning with a bad headache, in addition to some lightheadedness, and the feeling of a swollen and puffy face. The patient notes a history of headaches that usually resolve with Tylenol. However, the headache has been persistent today. She denies any fevers, chills, chest pain, vomiting, abdominal pain, ear pain or pressure, or diarrhea. She has a history of bronchitis. Source of History: patient Onset: 0400 this morning Position: head Symptom Intensity: not resolving with Tylenol Quality: other (pain) Timing: other (persistent) Associated Symptoms: + cough (with yellow sputum), + SOB, No fevers, No chills, No chest pain, No vomiting, No abdominal pain, No diarrhea Note: Associated symptoms: Swollen feeling in face. Lightheaded. Dental pain. Denies ear pain or pressure. Review of Systems See HPI for pertinent positives & negatives. A total of 10 systems reviewed and were otherwise negative. Past Medical & Surgical Medical Problems: (1) Chest pain (2) Depression (3) Diabetes Surgical Problems: (1) S/P cholecystectomy (2) S/P knee replacement (3) S/P lumbar spinal fusion Family History Cancer Diabetes mellitus Heart disease Hypertension Social History Smoking Status: Former Smoker Alcohol Use: none Drug Use: none Marital Status: Housing Status: lives with family Occupation Status: unemployed Current/Historical Medications Scheduled Aspirin (Aspirin Chewable), 81 MG PO HS Brimonidine Tartrate-Timolol M (Combigan), 1 DROP OPR BID Bupropion (Wellbutrin-Xl), 300 MG PO HS Escitalopram Oxalate (Lexapro), 20 MG PO QAM Esomeprazole Magnesium (Nexium), 40 MG PO QAM Insulin Glargine (Lantus), 15 UNITS SC QAM Liraglutide (Victoza), 18 MG SC QPM Losartan Potassium (Cozaar), 50 MG PO QPM Montelukast Sodium (Singulair), 10 MG PO HS Prednisolone Acetate (Ophth) (Pred Forte 1% Oph), 1 DROP OPR QAM Simvastatin (Zocor), 40 MG PO HS Scheduled PRN Acetaminophen (Tylenol), 1,000 MG PO UD PRN for Headache or Pain Hydroxyzine Hcl (Atarax), 10 MG PO TID PRN for Anxiety Allergies Coded Allergies: Erythromycin (Verified Adverse Reaction, Unknown, UPSET STOMACH, 05/10/17) Physical Exam Vital Signs Date Time Temp Pulse Resp B/P (MAP) Pulse Ox O2 Delivery O2 Flow Rate FiO2 06/23/17 22:17 73 116/85 96 06/23/17 21:15 75 16 107/55 95 Room Air 06/23/17 18:47 81 17 149/85 96 Room Air 06/23/17 18:00 76 06/23/17 16:46 37.0 88 18 133/89 95 Room Air Physical Exam GENERAL: alert, well appearing, well nourished, no distress, non-toxic EYE EXAM: normal conjunctiva, PERRL and EOM's grossly intact OROPHARYNX: Mild sinus tenderness to percussion, no exudate, no erythema, lips, buccal mucosa, and tongue normal and mucous membranes are moist NECK: supple, no nuchal rigidity, no adenopathy, non-tender LUNGS: Clear to auscultation. Normal chest wall mechanics HEART: no murmurs, S1 normal and S2 normal ABDOMEN: abdomen soft, non-tender, normo-active bowel sounds, no masses, no rebound or guarding. BACK: Back is symmetrical on inspection and there is no deformity, no midline tenderness, no CVA tenderness. SKIN: no rashes and no bruising UPPER EXTREMITIES: upper extremities are grossly normal. LOWER EXTREMITIES: No pitting edema. NEURO EXAM: Normal sensorium, cranial nerves II-XII grossly intact, normal speech, no gross weakness of arms, no gross weakness of legs. Medical Decision & Procedures ER Provider Diagnostic Interpretation: Radiology results have been interpreted by the radiologist and reviewed by me. HEAD CT NONCONTRAST CT DOSE: 1228.53 mGy.cm HISTORY: atypical headache TECHNIQUE: Multiaxial CT images of the head were performed without the use of intravenous contrast. Automated exposure control was utilized for this study. A dose lowering technique was utilized adhering to the principles of ALARA. Comparison: None. Findings: Trace fluid level within the left maxillary sinus. Postoperative changes within the paranasal sinuses. The mastoid air cells are clear. Scattered dural calcifications. The calvarium and skull base are intact. The ventricles and sulci are within normal limits. There is no mass, hematoma, midline shift, or acute infarct. Impression: No acute intracranial abnormality. Electronically signed by: Richy Velarde M.D. 06/23/2017 6:44 PM Dictated Date/Time: 06/23/2017 6:41 PM CHEST 2 VIEWS ROUTINE HISTORY: Cough. Atypical chest pain. COMPARISON: Chest 09/15/2016. FINDINGS: The lungs are clear. Cardiac silhouette is normal in size. No pleural effusions. No pneumothorax. IMPRESSION: No acute process. Electronically signed by: Richy Velarde M.D. 06/23/2017 7:06 PM Dictated Date/Time: 06/23/2017 7:05 PM HEAD CTA HISTORY: HEADACHE, RECENT SINUS INFECTION TECHNIQUE: Multiaxial CT images of the head were performed after the intravenous administration of contrast to evaluate the major cerebral vessels. Maximum intensity projection images were also obtained. A dose lowering technique was utilized adhering to the principles of ALARA. COMPARISON: Head CT 06/23/2017. FINDINGS: Scattered dural calcifications are again noted. There is no mass, hematoma, midline shift, acute infarct. The major dural venous sinuses appear patent. Visualized intracranial internal carotid arteries, distal vertebral arteries, and basilar artery are widely patent. There is no significant stenosis, occlusion, or aneurysm seen within the bilateral ACAs, MCAs, or director of student financial services. IMPRESSION: No significant stenosis, occlusion, or aneurysm within the [place]. Electronically signed by: Richy Velarde M.D. 06/23/2017 9:45 PM Dictated Date/Time: 06/23/2017 9:41 PM Laboratory Results 06/23/17 19:08 Red Blood Count 4.94, Mean Corpuscular Volume 84.4, Mean Corpuscular Hemoglobin 28.1, Mean Corpuscular Hemoglobin Concent 33.3, Mean Platelet Volume 9.2, Neutrophils (%) (Auto) 53.4, Lymphocytes (%) (Auto) 37.9, Monocytes (%) (Auto) 7.6, Eosinophils (%) (Auto) 0.6, Basophils (%) (Auto) 0.4, Neutrophils # (Auto) 3.62, Lymphocytes # (Auto) 2.58, Monocytes # (Auto) 0.52, Eosinophils # (Auto) 0.04, Basophils # (Auto) 0.03 06/23/17 17:20 Test 06/23/17 17:20 06/23/17 18:10 06/23/17 19:08 Anion Gap 4.0 mmol/L (3-11) Est Creatinine Clear Calc Drug Dose 90.9 ml/min Estimated GFR () 77.2 Estimated GFR (Non- 66.6 BUN/Creatinine Ratio 13.3 (10-20) Calcium Level 9.0 mg/dl (8.5-10.1) Total Bilirubin 0.7 mg/dl (0.2-1) Aspartate Amino Transf (AST/SGOT) 13 U/L (15-37) Alanine Aminotransferase (ALT/SGPT) 15 U/L (12-78) Alkaline Phosphatase 85 U/L (45-117) Troponin I < 0.015 ng/ml (0-0.045) Pro-B-Type Natriuretic Peptide 138 pg/ml (0-900) Total Protein 7.0 gm/dl (6.4-8.2) Albumin 3.3 gm/dl (3.4-5.0) Globulin 3.7 gm/dl (2.5-4.0) Albumin/Globulin Ratio 0.9 (0.9-2) Influenza Type A (RT-PCR) Neg for Influ A (NEG) Influenza Type B (RT-PCR) Neg for Influ B (NEG) White Blood Count 6.80 K/uL (4.8-10.8) Red Blood Count 4.94 M/uL (4.2-5.4) Hemoglobin 13.9 g/dL (12.0-16.0) Hematocrit 41.7 % (37-47) Mean Corpuscular Volume 84.4 fL (80-100) Mean Corpuscular Hemoglobin 28.1 pg (25-34) Mean Corpuscular Hemoglobin Concent 33.3 g/dl (32-36) Platelet Count 222 K/uL (130-400) Mean Platelet Volume 9.2 fL (7.4-10.4) Neutrophils (%) (Auto) 53.4 % Lymphocytes (%) (Auto) 37.9 % Monocytes (%) (Auto) 7.6 % Eosinophils (%) (Auto) 0.6 % Basophils (%) (Auto) 0.4 % Neutrophils # (Auto) 3.62 K/uL (1.4-6.5) Lymphocytes # (Auto) 2.58 K/uL (1.2-3.4) Monocytes # (Auto) 0.52 K/uL (0.11-0.59) Eosinophils # (Auto) 0.04 K/uL (0-0.5) Basophils # (Auto) 0.03 K/uL (0-0.2) RDW Standard Deviation 40.7 fL (36.4-46.3) RDW Coefficient of Variation 13.4 % (11.5-14.5) Immature Granulocyte % (Auto) 0.1 % Immature Granulocyte # (Auto) 0.01 K/uL (0.00-0.02) Laboratory results per my review. Medications Administered Medications (Trade) Dose Ordered Sig/[place] Route Start Time Stop Time Status Last Admin Dose Admin Acetaminophen (Tylenol Tab) 1,000 mg NOW STAT PO 06/23/17 17:09 06/23/17 17:12 DC 06/23/17 17:39 1,000 MG Ibuprofen (Motrin Tab) 600 mg NOW STAT PO 06/23/17 19:09 06/23/17 19:10 DC 06/23/17 19:46 600 MG ECG Indication: SOB/dyspnea Rate (beats per minute): 75 Rhythm: normal sinus Findings: no acute ischemic change, no ectopy, other (normal axis, normal intervals) Change: EKG: Patient's electrocardiogram per my interpretation. ED Course 1656: The patient was evaluated in room A9B. A complete history and physical exam was performed. 1709: Ordered Tylenol Tab 1000 mg PO. 1908: Ordered Motrin Tab 600 mg PO. 2007: I reevaluated the patient and she is feeling slightly better after the medications. I updated her. 2136: I reevaluated and updated the patient. 2148: Upon reevaluation, the patient is feeling better. I discussed the findings and the treatment plan with the patient. She verbalizes agreement and understanding. She was discharged home. Medical Decision Differential Diagnosis includes but is not limited to headache, tension headache , cluster headache, migraine, subarachnoid hemorrhage, meningitis, mass, central venous thrombus, concussion, trauma and epidural/subdural hemorrhage. Patient with reassuring labs and imaging here, and felt better following administration of Tylenol and ibuprofen. Discussed with patient possibility of headache secondary to medication being used in the sinus irrigation. I do not suspect additional occult sinus infection, intracranial abscess, mucormycosis, bacteremia/sepsis, meningitis/encephalitis, deep space infection, mastoiditis. No evidence of pneumonia on chest x-ray and I feel patient's productive cough likely secondary to nasal congestion and drainage. Discussed with patient close follow-up with family doctor and Dr. Wilkinson. Discussed with her continued use of routine medications, use Tylenol and Profen, adequate hydration, symptoms to watch and return for, she verbalized understanding and was agreeable with plan. Medication Reconcilliation Current Medication List: was personally reviewed by me Blood Pressure Screening Patient's blood pressure: Elevated blood pressure Blood pressure disposition: Elevated BP felt to be situational Impression Primary Impression: Headache Additional Impression: Sinus congestion Scribe Attestation The scribe's documentation has been prepared under my direction and personally reviewed by me in its entirety. I confirm that the note above accurately reflects all work, treatment, procedures, and medical decision making performed by me. Departure Information Dispostion Home / Self-Care Referrals No Doctor, Assigned (PCP) Patient Instructions My [facility] Additional Instructions Please continue regular medications as prescribed. Please follow up closely with Dr. Wilkinson given your history of sinus infection. You may use Tylenol and ibuprofen as needed for pain. Please drink plenty of water. Do not take ibuprofen on an empty stomach. If you have any recurrent or worsening headache , develop vision changes, dizziness, vomiting, fevers, or you have any other new and concerning symptoms, please return to the emergency room. Problem Qualifiers Primary Impression: Headache Headache type: unspecified Headache chronicity pattern: acute headache Intractability: not intractable Qualified Codes: R51 - Headache
[2017-06-23] MEDS ORDERED: ACETAMINOPHEN 500 MG TAB PO STA (17:09)
[2017-06-23] MEDS ORDERED: ACET-1256 PO (17:16)
[2017-06-23 17:59] LABS: ALBUMIN 3.3 gm/dl (3.4-5.0); ALT/SGPT 15 U/L (12-78); AST/SGOT 13 U/L (15-37); BLOOD UREA NITROGEN 12 mg/dl (7-18); CARBON DIOXIDE 29 mmol/L (21-32); CREATININE 0.89 mg/dl (0.60-1.20); GLUCOSE 124 mg/dl (70-99); POTASSIUM 4.3 mmol/L (3.5-5.1); SODIUM 134 mmol/L (136-145)
[2017-06-23 18:04] LABS: ALKALINE PHOSPHATASE 85 U/L (45-117)
--- NOTE | 2017-06-23 18:45 | DIAGNOSTIC IMAGING REPORT ---
HEAD CT NONCONTRAST CT DOSE: 1228.53 mGy.cm HISTORY: atypical headache TECHNIQUE: Multiaxial CT images of the head were performed without the use of intravenous contrast. Automated exposure control was utilized for this study. A dose lowering technique was utilized adhering to the principles of ALARA. Comparison: None. Findings: Trace fluid level within the left maxillary sinus. Postoperative changes within the paranasal sinuses. The mastoid air cells are clear. Scattered dural calcifications. The calvarium and skull base are intact. The ventricles and sulci are within normal limits. There is no mass, hematoma, midline shift, or acute infarct. Impression: No acute intracranial abnormality. Electronically signed by: Richy Velarde M.D. 06/23/2017 6:44 PM Dictated Date/Time: 06/23/2017 6:41 PM
--- NOTE | 2017-06-23 19:08 | DIAGNOSTIC IMAGING REPORT ---
CHEST 2 VIEWS ROUTINE HISTORY: Cough. Atypical chest pain. COMPARISON: Chest 09/15/2016. FINDINGS: The lungs are clear. Cardiac silhouette is normal in size. No pleural effusions. No pneumothorax. IMPRESSION: No acute process. Electronically signed by: Richy Velarde M.D. 06/23/2017 7:06 PM Dictated Date/Time: 06/23/2017 7:05 PM
[2017-06-23] MEDS ORDERED: IBUPROFEN 600 MG TAB PO STA (19:09)
[2017-06-23 19:33] LABS: INFLUENZA A PCR Neg for Influ A (NEG); INFLUENZA B PCR Neg for Influ B (NEG)
[2017-06-23 20:22] LABS: BASO % 0.4 %; BASO ABS # 0.03 K/uL (0-0.2); EOS % 0.6 %; EOS ABS # 0.04 K/uL (0-0.5); HEMATOCRIT 41.7 % (37-47); HEMOGLOBIN 13.9 g/dL (12.0-16.0); IG# 0.01 K/uL (0.00-0.02); LYMPH % 37.9 %; LYMPH ABS # 2.58 K/uL (1.2-3.4); MEAN CELL VOLUME 84.4 fL (80-100); MEAN CORPUSCULAR HEMOGLOBIN 28.1 pg (25-34); MEAN CORPUSCULAR HGB CONC 33.3 g/dl (32-36); MEAN PLATELET VOLUME 9.2 fL (7.4-10.4); MONO % 7.6 %; MONO ABS # 0.52 K/uL (0.11-0.59); NEUT % 53.4 %; NEUT ABS # 3.62 K/uL (1.4-6.5); PLATELET COUNT 222 K/uL (130-400); RED CELL DISTRIBUTION WIDTH CV 13.4 % (11.5-14.5); RED CELL DISTRIBUTION WIDTH SD 40.7 fL (36.4-46.3)
[2017-06-23] MEDS ORDERED: OPTIRAY 320 IV PRN (20:45)
--- NOTE | 2017-06-23 21:46 | DIAGNOSTIC IMAGING REPORT ---
HEAD CTA HISTORY: HEADACHE, RECENT SINUS INFECTION TECHNIQUE: Multiaxial CT images of the head were performed after the intravenous administration of contrast to evaluate the major cerebral vessels. Maximum intensity projection images were also obtained. A dose lowering technique was utilized adhering to the principles of ALARA. COMPARISON: Head CT 06/23/2017. FINDINGS: Scattered dural calcifications are again noted. There is no mass, hematoma, midline shift, acute infarct. The major dural venous sinuses appear patent. Visualized intracranial internal carotid arteries, distal vertebral arteries, and basilar artery are widely patent. There is no significant stenosis, occlusion, or aneurysm seen within the bilateral ACAs, MCAs, or cyber security consultant. IMPRESSION: No significant stenosis, occlusion, or aneurysm within the little traverse of [place]. Electronically signed by: Richy Velarde M.D. 06/23/2017 9:45 PM Dictated Date/Time: 06/23/2017 9:41 PM
[2017-06-23 22:17] VITALS: BP 116/85; PULSE 73; O2SAT 96
== END 2017-06-23 22:19 | disposition home or self-care (01) ==
LOC: C.EDB 16:42 → C.EDA 22:19
DX: R51 Headache (principal); R09.81 Nasal congestion; E11.9 Type 2 diabetes mellitus without complications; F32.9 Major depressive disorder, single episode, unspecified; Z79.82 Long term (current) use of aspirin; Z79.4 Long term (current) use of insulin; Z87.891 Personal history of nicotine dependence; Z80.9 Family history of malignant neoplasm, unspecified; Z83.3 Family history of diabetes mellitus; Z82.49 Family history of ischemic heart disease and other diseases of the circulatory system

== ENCOUNTER → 2017-07-24 | Outpatient (CLI) | payer BC ==
[~2017-07-24] VITALS: Ht 165.1 cm; Wt 153.0 kg
[~2017-07-24] MED LIST changes: +ACET-1256 PO; -CLAR500T38 PO
[2017-07-24 14:43] VITALS: BP 135/71; PULSE 105; Ht 165.1 cm; Wt 153.0 kg
== END | disposition home or self-care (01) ==
LOC: C.NEUR 14:18
PROVIDERS: ATTEND Internal Medicine Pulmonary Disease
DX: G47.33 Obstructive sleep apnea (adult) (pediatric) (principal); R53.83 Other fatigue; E66.01 Morbid (severe) obesity due to excess calories

== ENCOUNTER → 2017-08-07 | Outpatient (CLI) | payer BC ==
--- NOTE | 2017-08-08 06:30 | PAP/PSG TECHNICIAN REPORT ---
[facility] Computational Theory Scientist Polysomnogram Report Study name: None Report date: 08/08/2017 Study date: 08/07/2017 Referring Physician: Leighton Hendrickson M.D. Name: ELICEO LAU Jaguar Interpreting Physician: Leighton Hendrickson M.D. Date of : 1950 Computational Theory Scientist: Grazyna Cotter RPSGT. Sex: Female Age: 66 Study Type: PSG Weight: 337 lbs 16 in Height: 66 years, Height 5' 5" Neck Circum: BMI: 56.07 Medications: EVELYNE CAPS, ASPIRIN 81 MG, AZELASTINE 0.15% NASAL SOLN, FLUTICASONE 50 MCG/ACT, LEXAPRO 20 MG, LOSARTAN 100 MG, NEXIUM 40 MG, SIMVASTATIN 20 MG, SINGULAIR 10 MG, VICTOZA, WELLBUTRIN 300 MG Patient History 66 yr-old female here for a baseline study. She has had previous sleep testing. She was diagnosed with TAWANDA and was placed on CPAP. She could not tolerate it and discontinued use after three months. She is back to assess her TAWANDA and try CPAP again. Her Elma scale is 10. The test was started on room air. ETCO2 testing is included in this study. Room 3 Parameters Monitored NPSG: E1-M2, E2-M1, Fp1-M2, Fp2-M1, F3-M2, F4-M2, F4-M1, C3-M2, C4-M2, C4-M1, O1-M2, O2-M2, O2-M1, T3-M2, T4-M1, P3-M2, P4-M1, CHIN1, CHIN2, HR, EKG, Legs, PFLOW, SNOR, FLOW, CFLOW, Tidal Volume, THOR, ABDO, SpO2, PLTH, CPRESS, ETCO2 Wave, ETCO2, pH Sleep Architecture Sleep Stages Time at Lights Off 10:02:17 PM STAGES Time (min.) TST (%) Time at Lights On 5:39:17 AM Wake 124.0 -- Total Recording Time (TRT) 457.00 min. N1 118.5 36 Total Sleep Period (TSP) 426.0 min. N2 194.5 58 Total Sleep Time (TST) 333.0min. N3 7.0 2 Awake Time 124.0 min. REM 13.0 4 Wake after Sleep Onset 93.0 min. Sleep Efficiency (SE) 73 % Sleep Onset Latency (CORWIN) 31.0 min. Number of Stage 1 Shifts None Awakenings 39 Stage Changes 158 Number of REM periods 1 REM 13.0 4 REM Latency 365.5 min. NREM 320.0 96 Body Position Analysis Supine Right Left Side Prone Vertical Total Sleep Time (min.) 10.6 213.0 120.0 333.00 0.0 0.0 Total Sleep Time (%) 0% 64% 36% 100 0% N/A% Total Sleep Time REM (min.) 0.0 0.0 13.0 None 0.0 0.0 Total Sleep Time NREM (min.) 0.0 213.0 107.0 None 0.0 0.0 Intermittent Wake (min.) 10.6 59.6 53.8 None 0.0 0.0 Total Sleep Period (%) 0% None None None None None Arousals Myoclonus (PLM) * Events Count Index Events Count Index Spontaneous 39 7 Events Awake (PLMW) 64 31.0 Respiratory 13 2.5 Events Asleep w/ Arousal (PLMA) 88 15.9 PLM 88 16 Events Asleep w/o Arousal (PLMS) 482 86.8 Snoring 21 4 Total Asleep 570 102.7 Total 161 29 Total 634 83 Respiratory Analysis * CA OA MA CH H RERA Total Count 0 6 0 0 111 3 117 Index 0.0 1.1 0.0 0 20.0 1 21.6 Mean Duration 0.0 16.3 0.0 0.00 16.8 19.0 16.8 Longest Duration 0.0 23.8 0.0 0.00 0.0 22.2 36.6 Respiratory Event Summary Total Supine ~Supine Right Left Prone REM NREM Apneas Count 6 N/A 6 2 4 N/A 0 6 Index 1.1 N/A 1 0.6 2.0 N/A 0 1 Hypopneas (4% Desat) Count 111 N/A 111 65 46 N/A 10 101 Index 20.0 N/A 20 18.3 23.0 N/A 46.2 18.9 Apneas & All Hypopneas Count 117 N/A 117 67 50 N/A 10 107 Index 21.1 N/A 21 19 25 N/A 46.2 20.1 Respiratory Events (Shopper Marketing Manager+All Hyp+RERA) Count 117 N/A 120 68 52 N/A 10 107 Index 21.6 N/A 22 19.2 26.0 N/A 46.2 20.6 Respiratory Related Arousal Count 13 N/A 14 8 6 N/A 0 14 Index 2.5 N/A 3 2 3 N/A 0 3 Snoring Analysis Supine Right Left Prone REM NREM Total Snore duration 27.4 min Snores count N/A 742 503 N/A 135 1,110 1,245 Snore mean duration 1.3 Sec Snores index N/A 209 252 N/A 623.1 208.1 224.3 TST with snoring (%) 8.2% SpO2 Analysis Total REM NREM Awake <50% 0.0 min. 0.0 min. 0.0 min. 0.0 min. 51 - 60% 0.0 min. 0.0 min. 0.0 min. 0.0 min. 61 - 70% 0.0 min. 0.0 min. 0.0 min. 0.0 min. 71 - 80% 1.7 min. 1.2 min. 0.0 min. 0.5 min. 81 - 90% 292.4 min. 11.2 min. 207.9 min. 73.3 min. 91 - 100% 156.8 min. 0.6 min. 112.1 min. 44.1 min. Average 90 85 90 90 Minimum SpO2 75 75 82 76 Desaturation Event Index 26.3 60.0 30.0 16.0 # Desat. Events below 89% 150 12 122 16 Time(%) with Saturation below 89% 23.2 2.4 17.0 3.8 Time(min.) with Saturation below 89% 104.6 10.8 76.6 17.3 Heart Rate Analysis End Tidal CO2 Analysis Min (bpm) Max (bpm) Average (bpm) TSP (mins) % of TSP Awake 58 127 70 Above 55 mmHg 0.0 0.0 NREM 56 102 68 50-55 mmHg 0.0 0.0 REM 61 80 72 45-50 mmHg 1.9 0.6 Overall 56 102 68 40-45 mmHg 130.5 39.2 35-40 mmHg 120.2 36.1 30-35 mmHg 30.3 9.1 Average ETCO2 0.3 Supplemental O2 Values Minimum O2 level: None Value Start Time End Time Computational Theory Scientist Comments Ms. Lau slept in the right, left, and supine positions. Occasional cardiac arrhythmias were noted (please refer to the printouts). PLMs and many arousals from leg movements were noted. No bruxism noted. Snoring was noted and scored as a 3 on a scale of 1 through 5. (0=no snoring, 5=snoring loud enough to be heard through a closed door or down the jorge way). She awoke to use the restroom one time during the night. Ms. Lau stated that she did not sleep well. The final report will be interpreted and signed by a sleep physician. The completed physician report will then be placed in the patient medical record. Therapy (cm H2O) 0 TIB (min.) 457.0 TST (min.) 333.0 Sleep Onset (min.) 31.0 REM Onset From Sleep (min.) 365.5 Sleep Efficiency % 73 Wakefulness (%) 27 Wakefulness (min.) 124.0 NREM 1 (%) 36 NREM 1 (min.) 118.5 NREM 2 (%) 58 NREM 2 (min.) 194.5 NREM 3 (%) 2 NREM 3 (min.) 7.0 REM (%) 4 REM (min.) 13.0 # Arousals 161 Arousal Index 29 # Snore 1,245 Snore Index 224.3 AHI 21.1 AHI Supine N/A AHI Non-Supine 21 NREM AHI 20.1 REM AHI 46.2 RDI 21.6 # Obstructive Apnea 6 # Central Apnea 0 # Mixed Apnea 0 # Hypopneas 111 RERAs 3 Total Respiratory Events 123 Time Below SpO2 89% (min.) 87.4 Mean NREM SpO2 (%) 90 Mean REM SpO2 (%) 85 Mean Sleep SpO2 (%) 90 Min NREM SpO2 (%) 82 Min REM SpO2 (%) 75 Position Supine (min.) 10.6 Position Non-supine (min.) 333.0 LM Index Sleep 102.7 LM Index NREM 106.1 LM Index REM 18.5 Mean Heart Rate (bpm) 68 Min Heart Rate (bpm) 56
--- NOTE | 2017-08-13 07:56 | POLYSOMNOGRAPH REPORT ---
CLINICAL DATA: A 66-year-old female with BMI of 56, referred by myself and Dr. Álvarez for evaluation of sleep apnea. She was diagnosed with sleep apnea and was on CPAP but could not tolerate it. She discontinued use after 3 months. She is back to reassess her sleep apnea. Her Nabb sleepiness score is 10/24. SLEEP ARCHITECTURE: Total sleep period was 426 minutes. Total sleep time was 333 minutes, divided between 320 minutes of non-REM sleep and 13 minutes of REM sleep. Sleep onset latency was delayed at 31 minutes. REM latency was delayed at 365.5 minutes. Sleep efficiency was reduced at 73%. Wake after sleep onset was 93 minutes. Sleep consisted of stage N1 36%, stage N2 58%, stage N3 2%, and REM 4%. AROUSAL DATA: 161 arousals were recorded for an index of 29 per hour; 88 were due to PLM events. PERIODIC LIMB MOVEMENTS DATA: Severe PLMD was noted. There were 570 limb movements during sleep noted for an index of 103 per hour with arousal index of 16 per hour. RESPIRATORY DATA: Moderate sleep apnea was documented. The AHI was 21.1. The RDI was 21.6. There were 6 obstructive apneic episodes. The longest apneic episode was 23.8 seconds. There were 111 hypopneic episodes with a mean duration of 16.8 seconds. There were 3 RERAs. The longest RERA was 22.2 seconds. OXIMETRY DATA: Nocturnal hypoxemia was seen. Oxygen cristo was 75% during REM. Mean saturation was 90%. Time below 89% was 104.6 minutes. ELECTROCARDIOGRAM: Heart rates ranged from 59-102 beats per minute. Occasional PVCs were noted. INTEGRATED PEST MANAGEMENT TECHNICIAN'S COMMENTS: The patient slept in the right, left, and supine position. There were frequent PLMs with frequent arousals. Snoring was moderate, rated 3 on a scale of 1-5. IMPRESSION: Moderate obstructive sleep apnea/hypopnea with an apnea hypopnea index of 21.1 with nocturnal hypoxemia. The patient also had significant periodic limb movement disorder. RECOMMENDATIONS: The patient may benefit from a repeat sleep study with CPAP or use of an oral appliance. [facility]
== END | disposition home or self-care (01) ==
LOC: C.NEUR 21:00
PROVIDERS: ATTEND Internal Medicine Pulmonary Disease
DX: R53.83 Other fatigue (principal); E66.01 Morbid (severe) obesity due to excess calories; G47.33 Obstructive sleep apnea (adult) (pediatric)

== ENCOUNTER 2017-08-23 19:06 | Inpatient (IN) | payer BC, OTHER ==
[~2017-08-23] VITALS: Ht 165.1 cm; Wt 150.4 kg
[2017-08-23] MEDS ORDERED: ALBUT/IPRATROP 3MG/0.5MG NEB 3 ML VIAL INH STA (20:42)
[2017-08-23] MEDS ORDERED: ONDANSETRON INJ 2 MG/ML 2 ML VIAL IV STA (20:42)
[2017-08-23] MEDS ORDERED: MECLIZINE HCL 25 MG TAB PO STA (20:42)
[2017-08-23 21:17] LABS: BASO % 0.2 %; BASO ABS # 0.01 K/uL (0-0.2); EOS % 0.4 %; EOS ABS # 0.02 K/uL (0-0.5); HEMATOCRIT 42.7 % (37-47); HEMOGLOBIN 14.4 g/dL (12.0-16.0); LYMPH % 46.1 %; LYMPH ABS # 2.05 K/uL (1.2-3.4); MEAN CELL VOLUME 83.4 fL (80-100); MEAN CORPUSCULAR HEMOGLOBIN 28.1 pg (25-34); MEAN CORPUSCULAR HGB CONC 33.7 g/dl (32-36); MEAN PLATELET VOLUME 9.1 fL (7.4-10.4); NEUT % 44.3 %; NEUT ABS # 1.97 K/uL (1.4-6.5); PLATELET COUNT 178 K/uL (130-400); RED CELL DISTRIBUTION WIDTH CV 13.4 % (11.5-14.5); RED CELL DISTRIBUTION WIDTH SD 40.5 fL (36.4-46.3); WHITE BLOOD COUNT 4.45 K/uL (4.8-10.8)
--- NOTE | 2017-08-23 21:30 | DIAGNOSTIC IMAGING REPORT ---
CHEST ONE VIEW PORTABLE CLINICAL HISTORY: 66 years-old Female presenting with EVALUATE WEAKNESS. TECHNIQUE: Portable upright AP view of the chest was obtained. COMPARISON: 06/23/2017. FINDINGS: Atherosclerosis of the aortic arch. Cardiac silhouette top normal in size. Lungs and pleural spaces clear. Osseous structures normal. Upper abdomen normal. IMPRESSION: 1. No acute cardiopulmonary disease. Electronically signed by: Brennan Martin M.D. 08/23/2017 9:28 PM Dictated Date/Time: 08/23/2017 9:28 PM
[2017-08-23 21:47] LABS: INR 0.9 (0.9-1.1); PTT PATIENT 26.5 SECONDS (21.0-31.0)
--- NOTE | 2017-08-23 21:53 | DIAGNOSTIC IMAGING REPORT ---
HEAD WITHOUT CONTRAST (CT) CLINICAL HISTORY: 66 years-old Female presenting with dizzy, fall, left posterior impact. TECHNIQUE: Multidetector CT imaging of the head was performed without the use of intravenous contrast. IV contrast: None. A dose lowering technique was used consistent with the principles of ALARA (as low as reasonably achievable). COMPARISON: 06/23/2017. CT DOSE (mGy.cm): The estimated cumulative dose is 537.48 mGy.cm. FINDINGS: Product Controller topogram: Unremarkable. Proportional ventricular and sulcal prominence, likely age-related parenchymal volume loss. Brain parenchyma normal in appearance with preserved barreto-white differentiation. No mass effect or midline shift. No hemorrhage or acute territorial infarct. No extra-axial fluid collection. Paranasal sinuses and mastoid air cells clear. Calvarium intact. Extensive dural calcifications noted. IMPRESSION: 1. No acute intracranial abnormality. Electronically signed by: Brennan Martin M.D. 08/23/2017 9:52 PM Dictated Date/Time: 08/23/2017 9:49 PM
[2017-08-23 22:12] LABS: ALBUMIN 3.1 gm/dl (3.4-5.0); ALT/SGPT 21 U/L (12-78); BLOOD UREA NITROGEN 14 mg/dl (7-18); CALCIUM 8.8 mg/dl (8.5-10.1); CARBON DIOXIDE 26 mmol/L (21-32); CREATININE 0.82 mg/dl (0.60-1.20); GLUCOSE 133 mg/dl (70-99); LIPASE 241 U/L (73-393); TOTAL PROTEIN 6.5 gm/dl (6.4-8.2)
[2017-08-23 22:13] LABS: ALKALINE PHOSPHATASE 67 U/L (45-117); AST/SGOT 24 U/L (15-37); SODIUM 138 mmol/L (136-145)
[2017-08-23] MEDS ORDERED: ALBUT/IPRATROP 3MG/0.5MG NEB 3 ML VIAL ONE (22:45)
[2017-08-23] MEDS ORDERED: METHYLPREDNISOLONE 125 MG VIAL IV STA (22:55)
[2017-08-24] VITALS (8 sets, daily range): BP systolic 106–144; BP diastolic 72–83; PULSE 73–84; TEMP 36.8–36.9; O2SAT 92–96; Ht 165.1 cm; Wt 150.4 kg
[2017-08-24] MEDS ORDERED: ONDANSETRON INJ 2 MG/ML 2 ML VIAL IV STA (00:33)
--- NOTE | 2017-08-24 02:32 | EMERGENCY ROOM VISIT NOTE ---
History Report prepared by Charlotte: Jennifer Joseph Under the Supervision of: Dr. Leighton Davenport M.D. First contact with patient: 20:31 Chief Complaint: HEAD INJURY (MINOR) Stated Complaint: DIZZY,NAUSEA,HEADACHE,CONGESTION History of Present Illness The patient is a 66 year old female who presents to the Emergency Room with complaints of an episode of a head injury occurring prior to arrival. The patient states that she has been sick with a sinus infection. She states that she has had nausea for some time and started becoming dizzy this morning. She states that the dizziness feels similar to past episodes of vertigo. The patient reports that she was bent over this evening and fell backwards. She states that she hit her head and her left arm. The patient complains of diarrhea , cough, rib pain from the cough, shortness of breath from the congestion, and a headache. She denies taking any blood thinners. The patient notes that she just had a colonoscopy done that removed 4 polyps. Pt denies LOC, fevers, chills, diaphoresis, visual changes, neck pain, chest pain, vomiting, abdominal pain, back pain, melena, hematochezia, urinary symptoms, numbness, weakness, lymphadenopathy, rash, or other complaints. Source of History: patient Onset: prior to arrival Position: head Quality: ache Timing: other (episode) Associated Symptoms: + cough, + SOB, + nausea, + diarrhea Note: The patient complains of rib pain. Review of Systems See HPI for pertinent positives and negatives. A total of ten systems were reviewed and were otherwise negative. Past Medical & Surgical Medical Problems: (1) Chest pain (2) Depression (3) Diabetes (4) HTN (hypertension) (5) Hx of vertigo Surgical Problems: (1) S/P cholecystectomy (2) S/P knee replacement (3) S/P lumbar spinal fusion Family History Cancer Diabetes mellitus Heart disease Hypertension Social History Smoking Status: Former Smoker Alcohol Use: none Drug Use: none Marital Status: Housing Status: lives with family Occupation Status: unemployed Current/Historical Medications Scheduled Aspirin (Aspirin Chewable), 81 MG PO HS Brimonidine Tartrate-Timolol M (Combigan), 1 DROP OPR BID Bupropion (Wellbutrin-Xl), 300 MG PO HS Escitalopram Oxalate (Lexapro), 20 MG PO QAM Esomeprazole Magnesium (Nexium), 40 MG PO QAM Insulin Glargine (Lantus), 15 UNITS SC QAM Liraglutide (Victoza), 18 MG SC QPM Losartan Potassium (Cozaar), 50 MG PO QPM Montelukast Sodium (Singulair), 10 MG PO HS Prednisolone Acetate (Ophth) (Pred Forte 1% Oph), 1 DROP OPR QAM Simvastatin (Zocor), 40 MG PO HS Scheduled PRN Acetaminophen (Tylenol), 1,000 MG PO UD PRN for Headache or Pain Hydroxyzine Hcl (Atarax), 10 MG PO TID PRN for Anxiety Allergies Coded Allergies: Erythromycin (Verified Adverse Reaction, Unknown, UPSET STOMACH, 08/23/17) Physical Exam Vital Signs Date Time Temp Pulse Resp B/P (MAP) Pulse Ox O2 Delivery O2 Flow Rate FiO2 08/24/17 01:08 96 Nasal Cannula 2.0 08/24/17 01:07 88 Room Air 08/24/17 01:06 74 08/24/17 00:35 72 18 129/50 95 Nasal Cannula 2.0 08/23/17 22:40 73 20 139/64 89 Room Air 08/23/17 21:39 73 08/23/17 21:30 92 Room Air 08/23/17 19:25 19 08/23/17 19:23 36.7 79 18 130/80 94 Room Air Physical Exam GENERAL: Awake, alert, well-appearing, in no distress HENT: Normocephalic, atraumatic. Oropharynx unremarkable. TMs are normal. EYES: Normal conjunctiva. Sclera non-icteric. Lateral nystagmus noted on the rightward gaze. No pathologic nystagmus. NECK: Supple. No nuchal rigidity. FROM. No masses. RESPIRATORY: Expiratory wheezes and rhonchi on the right side. No rales. Normal respiratory effort. CARDIAC: Normal rate. Normal rhythm. No murmurs. No rubs. Extremities warm and well perfused. Pulses equal. No JVD. GI: Soft, non-distended. No tenderness to palpation. No rebound or guarding. No masses. RECTAL: Deferred. MUSCULOSKELETAL: Atraumatic. Chest examination reveals no tenderness. The back is symmetrical on inspection without obvious abnormality. There is no CVA tenderness to palpation. No joint edema. LOWER EXTREMITIES: Calves are equal size bilaterally and non-tender. No edema. No discoloration. NEURO: Normal sensorium. No sensory or motor deficits noted. Cranial nerves intact. SKIN: No rash or jaundice noted. Medical Decision & Procedures ER Provider Diagnostic Interpretation: Radiology results as stated below per my review and radiologist interpretation: CHEST ONE VIEW PORTABLE CLINICAL HISTORY: 66 years-old Female presenting with EVALUATE WEAKNESS. TECHNIQUE: Portable upright AP view of the chest was obtained. COMPARISON: 06/23/2017. FINDINGS: Atherosclerosis of the aortic arch. Cardiac silhouette top normal in size. Lungs and pleural spaces clear. Osseous structures normal. Upper abdomen normal. IMPRESSION: 1. No acute cardiopulmonary disease. Electronically signed by: Brennan Martin M.D. 08/23/2017 9:28 PM Dictated Date/Time: 08/23/2017 9:28 PM HEAD WITHOUT CONTRAST (CT) CLINICAL HISTORY: 66 years-old Female presenting with dizzy, fall, left posterior impact. TECHNIQUE: Multidetector CT imaging of the head was performed without the use of intravenous contrast. IV contrast: None. A dose lowering technique was used consistent with the principles of ALARA (as low as reasonably achievable). COMPARISON: 06/23/2017. CT DOSE (mGy.cm): The estimated cumulative dose is 537.48 mGy.cm. FINDINGS: Outside Food Server topogram: Unremarkable. Proportional ventricular and sulcal prominence, likely age-related parenchymal volume loss. Brain parenchyma normal in appearance with preserved barreto-white differentiation. No mass effect or midline shift. No hemorrhage or acute territorial infarct. No extra-axial fluid collection. Paranasal sinuses and mastoid air cells clear. Calvarium intact. Extensive dural calcifications noted. IMPRESSION: 1. No acute intracranial abnormality. Electronically signed by: Brennan Martin M.D. 08/23/2017 9:52 PM Dictated Date/Time: 08/23/2017 9:49 PM Laboratory Results 08/23/17 21:05 Red Blood Count 5.12, Mean Corpuscular Volume 83.4, Mean Corpuscular Hemoglobin 28.1, Mean Corpuscular Hemoglobin Concent 33.7, Mean Platelet Volume 9.1, Neutrophils (%) (Auto) 44.3, Lymphocytes (%) (Auto) 46.1, Monocytes (%) (Auto) 9.0, Eosinophils (%) (Auto) 0.4, Basophils (%) (Auto) 0.2, Neutrophils # (Auto) 1.97, Lymphocytes # (Auto) 2.05, Monocytes # (Auto) 0.40, Eosinophils # (Auto) 0.02, Basophils # (Auto) 0.01 08/23/17 21:05 Test 08/23/17 00:30 08/23/17 21:05 Urine Color YELLOW Urine Appearance CLEAR (CLEAR) Urine pH 5.5 (4.5-7.5) Urine Specific [place] 1.019 (1.000-1.030) Urine Protein NEG (NEG) Urine Glucose (UA) NEG (NEG) Urine Ketones 2+ (NEG) Urine Occult Blood NEG (NEG) Urine Nitrite NEG (NEG) Urine Bilirubin NEG (NEG) Urine Urobilinogen NEG (NEG) Urine Leukocyte Esterase NEG (NEG) White Blood Count 4.45 K/uL (4.8-10.8) Red Blood Count 5.12 M/uL (4.2-5.4) Hemoglobin 14.4 g/dL (12.0-16.0) Hematocrit 42.7 % (37-47) Mean Corpuscular Volume 83.4 fL (80-100) Mean Corpuscular Hemoglobin 28.1 pg (25-34) Mean Corpuscular Hemoglobin Concent 33.7 g/dl (32-36) Platelet Count 178 K/uL (130-400) Mean Platelet Volume 9.1 fL (7.4-10.4) Neutrophils (%) (Auto) 44.3 % Lymphocytes (%) (Auto) 46.1 % Monocytes (%) (Auto) 9.0 % Eosinophils (%) (Auto) 0.4 % Basophils (%) (Auto) 0.2 % Neutrophils # (Auto) 1.97 K/uL (1.4-6.5) Lymphocytes # (Auto) 2.05 K/uL (1.2-3.4) Monocytes # (Auto) 0.40 K/uL (0.11-0.59) Eosinophils # (Auto) 0.02 K/uL (0-0.5) Basophils # (Auto) 0.01 K/uL (0-0.2) RDW Standard Deviation 40.5 fL (36.4-46.3) RDW Coefficient of Variation 13.4 % (11.5-14.5) Immature Granulocyte % (Auto) 0.0 % Immature Granulocyte # (Auto) 0.00 K/uL (0.00-0.02) Prothrombin Time 9.3 SECONDS (9.0-12.0) Prothromb Time International Ratio 0.9 (0.9-1.1) Activated Partial Thromboplast Time 26.5 SECONDS (21.0-31.0) Partial Thromboplastin Ratio 1.0 Anion Gap 9.0 mmol/L (3-11) Estimated GFR () 85.2 Estimated GFR (Non- 73.5 BUN/Creatinine Ratio 17.1 (10-20) Calcium Level 8.8 mg/dl (8.5-10.1) Magnesium Level 1.9 mg/dl (1.8-2.4) Total Bilirubin 0.4 mg/dl (0.2-1) Direct Bilirubin 0.1 mg/dl (0-0.2) Aspartate Amino Transf (AST/SGOT) 24 U/L (15-37) Alanine Aminotransferase (ALT/SGPT) 21 U/L (12-78) Alkaline Phosphatase 67 U/L (45-117) Troponin I < 0.015 ng/ml (0-0.045) Total Protein 6.5 gm/dl (6.4-8.2) Albumin 3.1 gm/dl (3.4-5.0) Lipase 241 U/L (73-393) Thyroid Stimulating Hormone (TSH) 1.760 uIu/ml (0.300-4.500) Laboratory results reviewed by me Medications Administered Medications (Trade) Dose Ordered Sig/[place] Route Start Time Stop Time Status Last Admin Dose Admin Albuterol/ Ipratropium (Duoneb) 3 ml NOW STAT INH 08/23/17 20:42 08/23/17 20:45 DC 08/23/17 21:17 3 ML Meclizine HCl (Antivert Tab) 25 mg NOW STAT PO 08/23/17 20:42 08/23/17 20:45 DC 08/23/17 21:18 25 MG Ondansetron HCl (Zofran Inj) 4 mg NOW STAT IV 08/23/17 20:42 08/23/17 20:45 DC 08/23/17 21:18 4 MG Albuterol/ Ipratropium (Duoneb) 3 ml STK-MED ONCE .ROUTE 08/23/17 22:45 08/23/17 22:46 DC 08/23/17 22:47 3 ML Methylprednisolone Sodium Succinate (Solu-Medrol IV) 125 mg NOW STAT IV 08/23/17 22:55 08/23/17 22:58 DC 08/23/17 23:06 125 MG Ondansetron HCl (Zofran Inj) 4 mg NOW STAT IV 08/24/17 00:33 08/24/17 00:34 DC 08/24/17 00:35 4 MG ECG Per My Interpretation Indication: nausea Rate (beats per minute): 75 Rhythm: normal sinus Findings: no acute ischemic change, no ectopy ED Course 2034: The patient was evaluated in room A12A. A complete history and physical exam was performed. 2041: Ordered Zofran Inj 4 mg IV, Antivert Tab 25 mg PO, DuoNeb 3 ml INH. 2241: The patient has low O2 sats and will receive another neb treatment. 2244: Ordered DuoNeb 3 ml INH. 2255: Ordered Solu-Medrol IV 125 mg IV. 2301: I reevaluated the patient and she is doing okay. 0033: Ordered Zofran Inj 4 mg IV. 0112: I reevaluated the patient and updated her on her treatment plan. She verbally agrees and understands. 0116: Discussed the patient's case with Dr. Wanda PARKINSON Hospitalist. The patient will be evaluated for further treatment and disposition. Medical Decision Prior records/ancillary studies reviewed and summarized above. Nursing notes reviewed and agree them. Additional history obtained from family.. The patient's history was concerning for a fall, dizziness, nausea and chest congestion Differential diagnosis: Etiologies such as metabolic, infection, hypo/hyperglycemia, electrolyte abnormalities, cardiac sources, intracerebral event, toxicologic, neurologic, pneumonia, sinusitis, bronchitis, as well as others were entertained. Physical examination: As above. The patient was requiring supplemental oxygen ER treatment provided: IV Lock Oral meclizine DuoNeb 2 IV Zofran 2 Solu-Medrol Supplemental oxygen On reassessment the patient felt better however still required supplemental oxygen. Diagnostics interpretation by me: ECG: Normal without ischemia The labs revealed an unremarkable CBC and chemistry panel. Imaging studies: CAT scan and x-ray as above The patient has had URI symptoms and has at least a [id number] history of smoking. She does not have any history of COPD or emphysema by her reports. Her pulmonary examination and hypoxia raise concerns for early COPD. This will need further management and evaluation in the hospital. Consultation: A consultation was placed with the hospitalist. The case was discussed and diagnostics were reviewed. The patient was evaluated in the ER for further treatment. Medication Reconcilliation Current Medication List: was personally reviewed by me Blood Pressure Screening Patient's blood pressure: Normal blood pressure Will be further monitored by the hospitalist. Consults Time Called: 011 Consulting Physician: Dr. Wanda SALINAS Hospitalist Returned Call: [phone] Discussed the patient's case with Dr. Wanda SALINAS Hospitalist. The patient will be evaluated for further treatment and disposition. Impression Primary Impression: SOB (shortness of breath) Additional Impressions: Dizziness Closed head injury Hypoxia Scribe Attestation The scribe's documentation has been prepared under my direction and personally reviewed by me in its entirety. I confirm that the note above accurately reflects all work, treatment, procedures, and medical decision making performed by me. Departure Information Dispostion Being Evaluated By Hospitalist Referrals Ben Álvarez DO (PCP) Patient Instructions My [facility] Problem Qualifiers
[2017-08-24] MEDS ORDERED: ALBUTEROL 0.083% NEBU SOLN 3 ML VIAL INH PRN (03:00)
[2017-08-24] MEDS ORDERED: ALUMINUM/MAGNESIUM/SIMETH (MAALOX MAX) 30 ML UDC PO PRN (03:00)
[2017-08-24] MEDS ORDERED: hydrOXYzine HCL 10 MG TAB PO PRN (03:00)
[2017-08-24] MEDS ORDERED: MAGNESIUM HYDROXIDE SUSP 30 ML UDC PO PRN (03:00)
[2017-08-24] MEDS ORDERED: POLYETHYLENE (MIRALAX) 17 GM PACK PO PRN (03:00)
[2017-08-24] MEDS ORDERED: ACETAMINOPHEN 500 MG TAB PO PRN (03:00)
[2017-08-24] MEDS ORDERED: ZOLPIDEM TARTRATE 5 MG TAB PO PRN ×2 (03:00)
[2017-08-24] MEDS ORDERED: ACETAMINOPHEN 325 MG TAB PO PRN (03:00)
[2017-08-24] MEDS ORDERED: ONDANSETRON INJ 2 MG/ML 2 ML VIAL IV PRN (03:00)
--- NOTE | 2017-08-24 03:24 | History and Physical ---
History & Physical Date & Time of Service: Aug 24, 2017 at 02:47 Chief Complaint: Dizzy,Nausea,Headache,Congestion Primary Care Physician: Ben Álvarez, History of Present Illness 66F with a PMHx of anxiety, vertigo, DM2 p/w a fall after feeling dizzy 2/2 to her vertigo. Patient was recently diagnosed with a sinus infection and has been coughing a lot more. She denies ever being diagnosed with asthma or COPD however she does reports having used Albuterol (proair) and a twice daily inhaled steroid in the past. Pt has been feeling sick for a few days. In the ER pt was found to have a new oxygen requirement. She does not have oxygen at home. Pt states that her fall was after falling forward from a crouch, she report hitting her head. CT scan of the head in the ER was normal. SHX: Former smoker. Past Medical/Surgical History Medical Problems: (1) Abdominal pain (2) Acute anxiety (3) Acute anxiety (4) Back pain with radiation (5) Back pain with radiation (6) Chest pain (7) Constipation (8) Depression (9) Diabetes (10) Dizziness (11) Epigastric pain (12) Exertional dyspnea (13) Headache (14) HTN (hypertension) (15) Hx of vertigo (16) Mood disorder (17) Mood disorder (18) Near syncope (19) Precordial chest pain (20) Sinus congestion (21) Sinus pain (22) Upper abdominal pain (23) UTI (urinary tract infection) Surgical Problems: (1) S/P cholecystectomy (2) S/P knee replacement (3) S/P lumbar spinal fusion Family History Cancer Diabetes mellitus Heart disease Hypertension Social History Smoking Status: Former Smoker Drug Use: none Marital Status: Housing status: lives with family Occupational Status: unemployed Immunizations History of Influenza Vaccine: N/A History of Tetanus Vaccine?: Yes Tetanus Immunization Date: May 29, 2001 History of Pneumococcal: Yes History of Hepatitis B Vaccine: Yes Allergies Coded Allergies: Erythromycin (Verified Adverse Reaction, Unknown, UPSET STOMACH, 08/23/17) Home Medications Scheduled Aspirin (Aspirin Chewable), 81 MG PO HS Brimonidine Tartrate-Timolol M (Combigan), 1 DROP OPR BID Bupropion (Wellbutrin-Xl), 300 MG PO HS Escitalopram Oxalate (Lexapro), 20 MG PO QAM Esomeprazole Magnesium (Nexium), 40 MG PO QAM Insulin Glargine (Lantus), 15 UNITS SC QAM Liraglutide (Victoza), 18 MG SC QPM Losartan Potassium (Cozaar), 50 MG PO QPM Montelukast Sodium (Singulair), 10 MG PO HS Prednisolone Acetate (Ophth) (Pred Forte 1% Oph), 1 DROP OPR QAM Simvastatin (Zocor), 40 MG PO HS Scheduled PRN Acetaminophen (Tylenol), 1,000 MG PO UD PRN for Headache or Pain Hydroxyzine Hcl (Atarax), 10 MG PO TID PRN for Anxiety Review of Systems Constitutional: No fever, No chills, No weight loss Respiratory: + cough, + sputum, + wheezing, + shortness of breath Cardiovascular: No chest pain Abdomen: No pain, No nausea, No vomiting, No diarrhea, No constipation Musculoskeletal: No joint pain Genitourinary - Female: No dysuria Neurologic: No memory loss Endocrine: No fatigue Integumentary: No rash Physical Exam Vital Signs Date Time Temp Pulse Resp B/P (MAP) Pulse Ox O2 Delivery O2 Flow Rate FiO2 08/24/17 02:39 74 18 138/70 89 Nasal Cannula 2.0 08/24/17 01:08 96 Nasal Cannula 2.0 08/24/17 01:07 88 Room Air 08/24/17 01:06 74 08/24/17 00:35 72 18 129/50 95 Nasal Cannula 2.0 08/23/17 22:40 73 20 139/64 89 Room Air 08/23/17 21:39 73 08/23/17 21:30 92 Room Air 08/23/17 19:25 19 08/23/17 19:23 36.7 79 18 130/80 94 Room Air General Appearance: WD/WN, + mild distress, + obese Head: normocephalic, atraumatic Eyes: normal inspection, PERRL ENT: normal ENT inspection Neck: supple, no adenopathy Respiratory/Chest: chest non-tender, + pertinent finding (rales and rhonchi in all hallman + wheezing bilaterally ) Cardiovascular: regular rate, rhythm, no edema, no gallop, no JVD, no murmur, normal peripheral pulses Abdomen/GI: normal bowel sounds, non tender, soft, no organomegaly, no pulsatile mass Back: normal inspection, no CVA tenderness Extremities/Musculoskelatal: normal inspection, no calf tenderness, no pedal edema 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, no motor/sensory deficits, alert, normal mood/affect, oriented x 3 Skin: normal color, warm/dry Diagnostics Laboratory Results Results Past 24 Hours Test 08/23/17 21:05 Range/Units White Blood Count 4.45 4.8-10.8 K/uL Red Blood Count 5.12 4.2-5.4 M/uL Hemoglobin 14.4 12.0-16.0 g/dL Hematocrit 42.7 37-47 % Mean Corpuscular Volume 83.4 80-100 fL Mean Corpuscular Hemoglobin 28.1 25-34 pg Mean Corpuscular Hemoglobin Concent 33.7 32-36 g/dl Platelet Count 178 130-400 K/uL Mean Platelet Volume 9.1 7.4-10.4 fL Neutrophils (%) (Auto) 44.3 % Lymphocytes (%) (Auto) 46.1 % Monocytes (%) (Auto) 9.0 % Eosinophils (%) (Auto) 0.4 % Basophils (%) (Auto) 0.2 % Neutrophils # (Auto) 1.97 1.4-6.5 K/uL Lymphocytes # (Auto) 2.05 1.2-3.4 K/uL Monocytes # (Auto) 0.40 0.11-0.59 K/uL Eosinophils # (Auto) 0.02 0-0.5 K/uL Basophils # (Auto) 0.01 0-0.2 K/uL RDW Standard Deviation 40.5 36.4-46.3 fL RDW Coefficient of Variation 13.4 11.5-14.5 % Immature Granulocyte % (Auto) 0.0 % Immature Granulocyte # (Auto) 0.00 0.00-0.02 K/uL Prothrombin Time 9.3 9.0-12.0 SECONDS Prothromb Time International Ratio 0.9 0.9-1.1 Activated Partial Thromboplast Time 26.5 21.0-31.0 SECONDS Partial Thromboplastin Ratio 1.0 Sodium Level 138 136-145 mmol/L Potassium Level 4.0 3.5-5.1 mmol/L Chloride Level 103 98-107 mmol/L Carbon Dioxide Level 26 21-32 mmol/L Anion Gap 9.0 3-11 mmol/L Blood Urea Nitrogen 14 7-18 mg/dl Creatinine 0.82 0.60-1.20 mg/dl Estimated GFR () 85.2 Estimated GFR (Non- 73.5 BUN/Creatinine Ratio 17.1 10-20 Random Glucose 133 70-99 mg/dl Calcium Level 8.8 8.5-10.1 mg/dl Magnesium Level 1.9 1.8-2.4 mg/dl Total Bilirubin 0.4 0.2-1 mg/dl Direct Bilirubin 0.1 0-0.2 mg/dl Aspartate Amino Transf (AST/SGOT) 24 15-37 U/L Alanine Aminotransferase (ALT/SGPT) 21 12-78 U/L Alkaline Phosphatase 67 45-117 U/L Troponin I < 0.015 0-0.045 ng/ml Total Protein 6.5 6.4-8.2 gm/dl Albumin 3.1 3.4-5.0 gm/dl Lipase 241 73-393 U/L Thyroid Stimulating Hormone (TSH) 1.760 0.300-4.500 uIu/ml Diagnostic Radiology HEAD WITHOUT CONTRAST (CT) CLINICAL HISTORY: 66 years-old Female presenting with dizzy, fall, left posterior impact. TECHNIQUE: Multidetector CT imaging of the head was performed without the use of intravenous contrast. IV contrast: None. A dose lowering technique was used consistent with the principles of ALARA (as low as reasonably achievable). COMPARISON: 06/23/2017. CT DOSE (mGy.cm): The estimated cumulative dose is 537.48 mGy.cm. 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 Proportional ventricular and sulcal prominence, likely age-related parenchymal volume loss. Brain parenchyma normal in appearance with preserved barreto-white differentiation. No mass effect or midline shift. No hemorrhage or acute territorial infarct. No extra-axial fluid collection. Paranasal sinuses and mastoid air cells clear. Calvarium intact. Extensive dural calcifications noted. IMPRESSION: 1. No acute intracranial abnormality. Impression Assessment and Plan 66F with a PMHx of anxiety, vertigo, DM2 p/w a fall after feeling dizzy 2/2 to her vertigo. She is being admitted as an Asthma Exacerbation and has a new oxygen requirement that she doesn't have at home. Asthma Exacerbation Given Solu Medrol in the ER. Solu Medrol 60mg IV TID. start Levoquin 750mg IV Q24H start Duonebs Q6H schedule. start Albuterol Nebs Q4H - likely need DC on Albuterol. Incentive Spirometry Q1H to open airways. c/w Home Med singulair 10 MG PO HS Recent Fall 2/2 Vertigo vs Hypoxia Head CT Negative. Getting PT and OT on board. Primary Prevention c/w ASA Anxiety c/w Wellbutrin 300mg QHS c/w Lexapro daily. c/w Hydroxyzine Hcl (Atarax), 10 MG PO TID PRN for Anxiety DM2 c/w Lantus 15 units SC QAM. will hold the Victoza. HTN / HLD c/w Losartan 50mg QPM. c/w Zocor 40 MG PO HS DVT Proph: Hep SQ BID. Dispo: Obs to Med Surg. Diet: DM2 FULL CODE. Resuscitation Status VTE Prophylaxis Will order VTE Prophylaxis: Yes Resident Involvement: Resident Care Provided Care Provided: Adult Hospital Medicine
[2017-08-24] MEDS ORDERED: IV FLUIDS COMPLETED PRN (04:30)
[2017-08-24] MEDS: PATIENT'S HEIGHT AND/OR WEIGHT NEEDED SCH ×2 (04:30→05:37)
[2017-08-24] MEDS ORDERED: GLUCOSE 10 TABS/TUBE PO PRN ×2 (04:45→14:00)
[2017-08-24] MEDS ORDERED: GLUCAGON FOR INJ 1 MG VIAL SQ PRN ×2 (04:45→14:00)
[2017-08-24] MEDS ORDERED: DEXTROSE 50% 50 ML SYR IV PRN ×2 (04:45→14:00)
[2017-08-24] MEDS ORDERED: GLUCOSE 40% GEL 15 GM TUBE PO PRN ×2 (04:45→14:00)
[2017-08-24] MEDS: LEVOFLOXACIN / D5W 750 MG in PREMIXED IN D5W 150 ML IV SCH ×2 (06:21→08:15)
[2017-08-24] MEDS: HEPARIN SOD 5000 UNIT/0.5 ML CARP SQ SCH ×3 (06:28→21:25)
[2017-08-24] MEDS: ALBUT/IPRATROP 3MG/0.5MG NEB 3 ML VIAL INH SCH ×3 (07:29→19:07)
[2017-08-24] MEDS ORDERED: LEVOFLOXACIN CONSULT ACTIVE PRN (07:45)
[2017-08-24] MEDS ORDERED: INSULIN GLARGINE SOLOSTAR 100 UNITS/ML 3 ML PEN SC SCH (08:00)
[2017-08-24] MEDS: ESCITALOPRAM OXALATE 20 MG TAB PO SCH (08:08)
[2017-08-24] MEDS: PrednisoLONE ACET 1% OP SUSP 5 ML BTL OPR SCH (08:08)
[2017-08-24] MEDS: PANTOprazole SOD 40 MG TAB PO SCH (08:08)
[2017-08-24] MEDS: METHYLPREDNISOLONE IV 60 MG in SYRINGE 0 ML IV SCH ×3 (08:08→23:44)
[2017-08-24] MEDS ORDERED: MECLIZINE HCL 25 MG TAB PO STA (16:40)
[2017-08-24] MEDS ORDERED: PROMETHAZINE HCL INJ 12.5 MG in SODIUM CHLORIDE 0.9% 50ML 50 ML IV PRN (17:00)
[2017-08-24] MEDS: INSULIN ASPART 100 UNITS/ML 3 ML PEN SC SCH ×2 (17:58→21:25)
[2017-08-24] MEDS: ASPIRIN 81 MG ECTAB PO SCH (21:18)
[2017-08-24] MEDS: BuPROPion XL 300 MG TABCR PO SCH (21:19)
[2017-08-24] MEDS: SIMVASTATIN 40 MG TAB PO SCH (21:19)
[2017-08-24] MEDS: LOSARTAN POTASSIUM 50 MG TAB PO SCH (21:20)
[2017-08-24] MEDS: MONTELUKAST SOD 10 MG TAB PO SCH (21:20)
--- NOTE | 2017-08-24 22:57 | Progress Note ---
Progress Note Date of Service Aug 24, 2017. Progress Note Patient admitted after midnight. She was seen and examined in the chart was reviewed. She reports a cough productive of sputum for the last 5 days, denies hemoptysis. She is a [id number] smoking history, but denies ever being diagnosed with COPD or asthma. She also reports feeling dizzy, like the room is spinning, and it is worse with turning her head to the left or right. The dizziness is not worse necessarily with going from lying to sitting or sitting to standing position. She has not passed out. She is having difficulty walking due to the dizziness. This has been going on for about 2 days. She denies headache, denies weakness/numbness/tingling. She did feel nauseated and had one episode of vomiting with the dizziness. Vitals reviewed Gen: AAOx3, NAD, morbidly obese HEENT: anicteric sclerae, EOMI, PERRLA CV: RRR no mgr nl S1S2 Pulm: Diminished breath sounds at the bases, positive expiratory wheezes throughout, no crackles or rhonchi Abd: +BS soft NT ND no masses or hernias Ext: no edema, 2+ DP pulses Skin: no rashes, warm/dry Neuro: full strength throughout, CN II-XII intact grossly, gait not tested due to dizziness Labs reviewed, ECG within normal limits 66-year-old female with history of [id number] smoking, HTN, HL, anxiety disorder, morbid obesity, DM type II, here with acute bronchitis, likely COPD exacerbation, acute hypoxic respiratory failure, and dizziness. -Dizziness-seems to be vertigo, could be vestibular neuronitis with recent acute illness. Need to rule out other causes-will check MRI of the brain, orthostatic vital signs, and consult neurology for further evaluation, and try treating with meclizine for now, try Phenergan and Zofran for nausea as needed Acute bronchitis/suspected acute COPD exacerbation/acute hypoxic respiratory failure-chest x-ray negative for pneumonia. With 93-[id number]-[id number] smoking history, likely COPD undiagnosed, now requiring oxygen-continue IV steroids, Levaquin for bronchitis for 7 day course, continue nebulizers. Will need formal PFTs after discharge Chronic environmental and seasonal allergies/chronic sinusitis-has had nasal polyps removed and follows with ENT -Continue Singulair TAWANDA-awaiting second sleep study for CPAP titration-will remain on O2 while here DM 2 on long-term insulin, with hyperglycemia-secondary to corticosteroids -Increase Lantus to 20 units in the morning -Added on sliding scale insulin with carbohydrate coverage -Check hemoglobin A1c in the morning Anxiety disorder-stable -Continue Wellbutrin and Lexapro HTN/HL-stable -Continue losartan, simvastatin Heparin SQ for DVT prophylaxis
[2017-08-24] MEDS ORDERED: MECLIZINE HCL 25 MG TAB PO PRN (23:00)
[2017-08-25] VITALS (8 sets, daily range): BP systolic 89–138; BP diastolic 52–74; PULSE 66–85; TEMP 36.7–38.7; O2SAT 91–97
[2017-08-25] MEDS: ALBUT/IPRATROP 3MG/0.5MG NEB 3 ML VIAL INH SCH ×4 (01:55→19:15)
[2017-08-25] MEDS: HEPARIN SOD 5000 UNIT/0.5 ML CARP SQ SCH ×3 (06:12→21:09)
[2017-08-25 07:11] LABS: CALCIUM 9.3 mg/dl (8.5-10.1); CREATININE 0.73 mg/dl (0.60-1.20); POTASSIUM 4.6 mmol/L (3.5-5.1)
[2017-08-25 07:39] LABS: HEMOGLOBIN A1C 6.9 % (4.5-5.6)
[2017-08-25] MEDS: METHYLPREDNISOLONE IV 60 MG in SYRINGE 0 ML IV SCH ×2 (09:22→20:40)
[2017-08-25] MEDS: PANTOprazole SOD 40 MG TAB PO SCH (09:23)
[2017-08-25] MEDS: ESCITALOPRAM OXALATE 20 MG TAB PO SCH (09:23)
[2017-08-25] MEDS: PrednisoLONE ACET 1% OP SUSP 5 ML BTL OPR SCH (09:24)
[2017-08-25] MEDS: INSULIN ASPART 100 UNITS/ML 3 ML PEN SC SCH ×4 (09:39→21:08)
[2017-08-25] MEDS: INSULIN GLARGINE SOLOSTAR 100 UNITS/ML 3 ML PEN SC SCH (09:40)
--- NOTE | 2017-08-25 10:28 | Hospitalist Progress Note ---
Hospitalist Progress Note Date of Service Aug 25, 2017. Subjective Pt evaluation today including: conversation w/ patient, conversation w/ family Had a low-grade fever this morning that she was unaware of. Still feeling dizzy with movement such as trying to get out of bed and ambulate. She did have a low blood pressure overnight which has improved this morning. Yesterday , she was very nauseated and dizzy in the evening which did not improve with Zofran, meclizine, or Phenergan for quite a few hours she says. She does feel perhaps a little bit better today than yesterday. Her cough and shortness of breath are much improved and she is weaned off oxygen this morning. She has not had a bowel movement 2 days, no diarrhea or abdominal pain. No chest pain. All Other Systems: Reviewed and Negative Objective Vital Signs Date Time Temp Pulse Resp B/P (MAP) Pulse Ox O2 Delivery O2 Flow Rate FiO2 08/25/17 07:00 85 18 95 Room Air 08/25/17 06:56 36.7 66 18 109/62 (78) 94 Room Air 08/25/17 04:15 38.7 72 20 138/67 (90) 95 Room Air 08/25/17 00:32 36.8 76 20 89/52 (64) 91 Room Air 08/25/17 00:00 Room Air 08/24/17 19:07 77 18 94 Room Air 08/24/17 16:58 83 20 135/83 (100) 92 Room Air 08/24/17 16:00 Room Air 08/24/17 14:55 36.9 76 18 106/72 (83) 96 Room Air 08/24/17 14:34 76 18 94 Room Air Physical Exam General Appearance: WD/WN, no apparent distress, + obese Eyes: EOMI, + pertinent finding (Right medial strabismus, but improves with extraocular muscle testing) ENT: hearing grossly normal, pharynx normal Neck: trachea midline Respiratory/Chest: no respiratory distress, no accessory muscle use, + pertinent finding (Only a few scattered wheezes with much improved air movement and much less wheezing on expiration today) Cardiovascular: regular rate, rhythm, no edema, no gallop, no murmur Abdomen: normal bowel sounds, non tender, soft, no organomegaly (But morbidly obese and difficult to assess completely) Extremities: non-tender, normal inspection, no pedal edema, no calf tenderness Neurologic/Psychiatric: no motor/sensory deficits, alert, normal mood/affect, oriented x 3 Skin: normal color, warm/dry, no rash Laboratory Results Last 24 Hours Test 08/24/17 12:01 08/24/17 17:22 08/24/17 20:25 08/25/17 06:07 Bedside Glucose 273 mg/dl 233 mg/dl 236 mg/dl Sodium Level 136 mmol/L Potassium Level 4.6 mmol/L Chloride Level 103 mmol/L Carbon Dioxide Level 27 mmol/L Anion Gap 6.0 mmol/L Blood Urea Nitrogen 12 mg/dl Creatinine 0.73 mg/dl Est Creatinine Clear Calc Drug Dose 109.9 ml/min Estimated GFR () 98.1 Estimated GFR (Non- 84.6 BUN/Creatinine Ratio 16.4 Random Glucose 270 mg/dl Estimated Average Glucose 151 mg/dl Hemoglobin A1c 6.9 % Calcium Level 9.3 mg/dl Test 08/25/17 07:45 Bedside Glucose 255 mg/dl Assessment and Plan This patient is a 66-year-old female with history of [id number] smoking, frequent bronchitis, HTN, HL, anxiety disorder, morbid obesity, DM type II, here with acute bronchitis, likely COPD and/or asthma exacerbation, acute hypoxic respiratory failure, and dizziness. -Dizziness/nausea-seems to be vertigo, could be vestibular neuronitis with recent acute illness. Need to rule out other causes but CVA seems less likely- meclizine did not help with the dizziness, needed Phenergan, Zofran did not help her nausea -Still awaiting MRI of the brain but I am told is to be done this morning -Check orthostatic vital signs -Appreciate consult neurology for further evaluation -Continue meclizine, Zofran, Phenergan as needed Acute bronchitis/suspected acute COPD exacerbation/acute hypoxic respiratory failure-chest x-ray negative for pneumonia. Significantly improved now on IV steroids and with p.o. Levaquin. With [id number] smoking history and history of frequent bronchitis, likely has undiagnosed asthma and/or COPD.Now weaned off of oxygen and lungs sound much improved -continue IV steroids and taper down to every 12 and eventual placement on prednisone likely tomorrow -Continue Levaquin 500 mg p.o. daily for bronchitis for 7 day course-today is day #2/7 -Continue nebulizers -Will need formal PFTs after discharge Fever-could be secondary to viral illness versus acute bacterial bronchitis or sinusitis which she is being treated for as above -Check rapid flu antigen swab now -Blood cultures 2 now -Continue Levaquin as above Chronic environmental and seasonal allergies/chronic sinusitis-has had nasal polyps removed and follows with ENT. Does have some sinus congestion -Continue Singulair -Levaquin should cover for acute sinusitis -MRI of the brain today will also allow us to look at her sinuses TAWANDA-awaiting second sleep study for CPAP titration-will remain on O2 while here nocturnally DM 2 on long-term insulin, with hyperglycemia-secondary to corticosteroids, should improve with increased dose of insulin as well as tapering down of IV steroids today. Hemoglobin A1c only 6.9% so normally very well controlled. -Increased Lantus to 20 units in the morning -Continue on sliding scale insulin with carbohydrate coverage Anxiety disorder-stable -Continue Wellbutrin and Lexapro HTN/HL-stable -Continue losartan, simvastatin Heparin SQ for DVT prophylaxis Disposition-likely to home in the next 1-2 days if clinically improved
[2017-08-25] MEDS ORDERED: GADAVIST IV PRN (11:00)
--- NOTE | 2017-08-25 11:13 | DIAGNOSTIC IMAGING REPORT ---
MRI OF THE BRAIN COMBO CLINICAL HISTORY: Headaches and dizziness. Recent fall with head injury. COMPARISON STUDY: CT of the brain dated 08/23/2017. TECHNIQUE: MRI of the brain was performed utilizing various T1 and T2-weighted sequences in the axial, sagittal, and coronal planes. Contrast-enhanced sequences were acquired following the administration of 14 cc of Gadavist. FINDINGS: Brain parenchyma: There are age-related involutional changes noting mild subcortical and periventricular microangiopathic disease. There is no hemorrhage or mass effect. There is no restricted diffusion to suggest acute ischemia. A 10 mm homogeneously enhancing extra-axial nodule along the right frontal convexity seen on axial image #17. This was shown to contain calcification on the 08/14/2016 CT scan. The appearance is typical for a small meningioma. No additional enhancing mass lesion is identified. Zamorano-white matter differentiation is preserved. No extra-axial fluid collection is seen. The cerebellar tonsils are normal in configuration. Ventricles, sulci, and cisterns: Prominent secondary to involutional change. Pituitary and sella: Partially empty sella is incidentally noted. Intracranial vasculature: Normal flow voids are maintained at the skull base. Orbits: The bony orbits are grossly intact. Orbital contents are normal in appearance noting bilateral ocular lens implants. Sinuses and mastoids: There is evidence of previous paranasal sinus surgery. The paranasal sinuses and mastoid air cells are clear. Calvarium: Unremarkable. Cervical cord: Partially visualized cervical spinal cord is normal in morphology and signal intensity. IMPRESSION: 1. Mild age related change with no acute intracranial abnormality. 2. A 10 mm meningioma is incidentally noted along the right frontal convexity. There is no associated mass effect. Electronically signed by: Myles Rankin M.D. 08/25/2017 11:12 AM Dictated Date/Time: 08/25/2017 11:04 AM
[2017-08-25] MEDS: LEVOFLOXACIN 500 MG TAB PO SCH (13:13)
--- NOTE | 2017-08-25 13:49 | Neurology Consultation ---
Neurology Consultation Date of Consultation: Aug 25, 2017. Attending Physician: Tracey Shetty MD Primary Care Physician: Ben Álvarez DO Reason for Consultation: Consultation for dizziness History of Present Illness Source: patient, hospital records This is a 66-year-old female who presented initially with upper respiratory viral symptoms, shortness of breath, wheezing, nausea, and dizziness. Patient was admitted for new O2 requirement. Patient reports that she was seen by her primary care on Sunday for upper respiratory illness symptoms that seem to be worsening. She was given antibiotics but seemed to not be helping. On when she was getting ready in the bathroom and she had bent over she did fall and hit her head. There is no loss of consciousness or major injuries. Patient is never had a concussion in the past. She reports that since she started to feel dizzy and have nausea. She reports nausea is minor right now. She reports the dizziness is similar to a severe vertigo episode that she has had in the past. She describes the dizziness as feeling wobbly. Tends to be set off when she moves her head in certain directions. Patient does report symptoms of ringing in the ears that she has had for a long time. She did have a couple days of right ear pain last week. No hearing loss recently but does have chronic hearing loss. Denies any visual changes On review of systems patient reports having diarrhea, cough, congestion with this viral illness. She has also been having some shortness of breath. No chest pain. Labs were reviewed and unremarkable CBC, complete metabolic panel, TSH. MRI of the brain report and images were reviewed by myself and overall unremarkable. Some age-related changes noted an incidental small meningioma in the right frontal area with no mass-effect. Overall nothing on MRI that would cause dizziness Past Medical/Surgical History Medical Problems: (1) Closed head injury Status: Acute (2) Dizziness Status: Acute (3) Exertional dyspnea Status: Acute (4) Headache Status: Acute (5) Hypoxia Status: Acute (6) Near syncope Status: Acute (7) Precordial chest pain Status: Acute (8) Sinus congestion Status: Acute (9) Sinus pain Status: Acute (10) SOB (shortness of breath) Status: Acute (11) Upper abdominal pain Status: Acute Past medical history includes anxiety, episode of vertigo, diabetes type 2, hearing loss with tinnitus, obstructive sleep apnea, hypertension Family History Family history of cancer, diabetes, CAD, hypertension Social History Patient is normally independent in her activities of daily living. History of tobacco use but no current tobacco use. Smoking Status: Never smoker Drug Use: none Marital Status: Housing Status: lives with family Occupation Status: unemployed Allergies Coded Allergies: Erythromycin (Verified Adverse Reaction, Unknown, UPSET STOMACH, 08/23/17) Current Inpatient Medications Current Inpatient Medications Medications (Trade) Dose Ordered Sig/[place] Route Start Time Stop Time Status Last Admin Dose Admin Heparin Sodium (Porcine) (Heparin Sq 5000 Unit/0.5ml) 5,000 unit Q8H SQ 08/24/17 06:00 09/23/17 05:59 08/25/17 13:19 5,000 UNIT Acetaminophen (Tylenol Tab) 650 mg Q4H PRN PO 08/24/17 03:00 09/23/17 02:59 Al Hydrox/Mg Hydrox/Simethicone (Maalox Max Susp) 15 ml Q4H PRN PO 08/24/17 03:00 09/23/17 02:59 Magnesium Hydroxide (Milk Of Magnesia Susp) 30 ml Q6H PRN PO 08/24/17 03:00 09/23/17 02:59 Polyethylene (Miralax Powder Packet) 17 gm DAILY PRN PO 08/24/17 03:00 09/23/17 02:59 Zolpidem Tartrate (Ambien Tab) 5 mg HSZ PRN PO 08/24/17 03:00 09/23/17 02:59 Ondansetron HCl (Zofran Inj) 4 mg Q6H PRN IV 08/24/17 03:00 09/23/17 02:59 08/24/17 15:36 4 MG Aspirin (Ecotrin Tab) 81 mg HS PO 08/24/17 21:00 09/23/17 20:59 08/24/17 21:18 81 MG Bupropion HCl (Wellbutrin-Xl Tab) 300 mg HS PO 08/24/17 21:00 09/23/17 20:59 08/24/17 21:19 300 MG Escitalopram Oxalate (Lexapro Tab) 20 mg QAM PO 08/24/17 08:00 09/23/17 08:59 08/25/17 09:23 20 MG Hydroxyzine HCl (Vistaril Tab) 10 mg TID PRN PO 08/24/17 03:00 09/23/17 02:59 Losartan Potassium (coZAAR TAB) 50 mg QPM PO 08/24/17 21:00 09/23/17 20:59 08/24/17 21:20 50 MG Montelukast Sodium (Singulair Tab) 10 mg HS PO 08/24/17 21:00 09/23/17 20:59 08/24/17 21:20 10 MG Prednisolone Acetate (Pred Forte 1% Oph Susp) 1 drops QAM OPR 08/24/17 08:00 09/23/17 08:59 08/25/17 09:24 1 DROPS Simvastatin (Zocor Tab) 40 mg HS PO 08/24/17 21:00 09/23/17 20:59 08/24/17 21:19 40 MG Miscellaneous Information (Order Awaiting Action) 1 ea QS N/A 08/24/17 08:00 09/23/17 07:59 Pantoprazole Sodium (Protonix Tab) 40 mg QAM PO 08/24/17 08:00 09/23/17 08:59 08/25/17 09:23 40 MG Albuterol/ Ipratropium (Duoneb) 3 ml Q6R INH 08/24/17 09:00 09/23/17 08:59 08/25/17 07:00 3 ML Albuterol Sulfate (Ventolin 0.083% 2.5MG/3ML Neb) 2.5 mg Q4H PRN INH 08/24/17 03:00 09/23/17 02:59 Miscellaneous (Iv Fluids Completed) 1 ea PRN PRN N/A 08/24/17 04:30 08/24/18 04:29 Glucose (Glucose 40% Gel) 15-30 GRAMS 15 GRAMS... UD PRN PO 08/24/17 04:45 09/23/17 04:44 Glucose (Glucose Chew Tab) 4-8 Tablets 4 Tabl... UD PRN PO 08/24/17 04:45 09/23/17 04:44 Dextrose (Dextrose 50% 50ML Syringe) 25-50ML OF 50% DW IV FOR... UD PRN IV 08/24/17 04:45 09/23/17 04:44 Glucagon (Glucagon Inj) 1 mg UD PRN SQ 08/24/17 04:45 09/23/17 04:44 Levofloxacin (Consult) 1 ea UD PRN N/A 08/24/17 07:45 09/23/17 07:44 Insulin Aspart (novoLOG ASPART) SLIDING SCALE If C... ACHS SC 08/24/17 16:30 09/23/17 16:29 08/25/17 13:19 4 UNITS Levofloxacin (Levaquin Tab) 500 mg DAILY@11 PO 08/25/17 11:00 08/31/17 10:59 08/25/17 13:13 500 MG Promethazine HCl 12.5 mg/Sodium Chloride 50.5 ml @ 204 mls/hr Q6H PRN IV 08/24/17 17:00 09/23/17 16:59 Insulin Glargine (Lantus Solostar Pen) 20 units QAM SC 08/25/17 08:00 09/23/17 08:59 08/25/17 09:40 20 UNITS Meclizine HCl (Antivert Tab) 25 mg Q8H PRN PO 08/24/17 23:00 09/23/17 22:59 08/25/17 09:43 25 MG Methylprednisolone Sodium Succinate 60 mg/Syringe 0.96 ml @ 1.5 mls/min Q12H IV 08/25/17 20:00 09/23/17 07:59 Gadobutrol (Gadavist) 14 mmol UD PRN IV 08/25/17 11:00 08/29/17 10:59 Review of Systems Complete review of systems otherwise negative except for the above-noted in HPI Physical Exam Vital Signs (Past 24 Hrs): Date Time Temp Pulse Resp B/P (MAP) Pulse Ox O2 Delivery O2 Flow Rate FiO2 08/25/17 07:00 85 18 95 Room Air 08/25/17 06:56 36.7 66 18 109/62 (78) 94 Room Air 08/25/17 04:15 38.7 72 20 138/67 (90) 95 Room Air 08/25/17 00:32 36.8 76 20 89/52 (64) 91 Room Air 08/25/17 00:00 Room Air 08/24/17 19:07 77 18 94 Room Air 08/24/17 16:58 83 20 135/83 (100) 92 Room Air 08/24/17 16:00 Room Air 08/24/17 14:55 36.9 76 18 106/72 (83) 96 Room Air 08/24/17 14:34 76 18 94 Room Air Gen.: Patient is alert and sitting in bed, in no acute distress. HEENT: Normocephalic /atraumatic, no scleral icterus Heart: Regular rate and rhythm Extremities: No gross deformities or rashes noted Neurological examination: Mental status: Patient is alert and oriented x3. Attention and concentration normal for the situation. Good fund of knowledge. Remote and recent memory intact. Speech is fluent without any dysarthria or aphasia noted Cranial nerve: Funduscopic examination was unremarkable. No papilledema. Pupils equally round and reactive to light. Extraocular muscles intact with bilateral horizontal nystagmus that quickly extinguished. No facial asymmetry noted. Facial sensation intact. Tongue is midline. Good palatal elevation. Good shoulder shrug bilaterally. Hearing grossly intact to voice. Strength: 5/5 both proximal and distally in all extremities. There is no arm drift. Tone is normal. Sensation: Grossly intact to light touch in all extremities. Deep tendon reflexes: +2 in bilateral biceps, brachioradialis and patellar. Coordination: Patient had good finger to nose without dysmetria Station within the bed was normal Laboratory Results Past 24 Hours: 08/25/17 06:07 Test 08/25/17 06:07 08/25/17 11:47 Anion Gap 6.0 mmol/L (3-11) Est Creatinine Clear Calc Drug Dose 109.9 ml/min Estimated GFR () 98.1 Estimated GFR (Non- 84.6 BUN/Creatinine Ratio 16.4 (10-20) Estimated Average Glucose 151 mg/dl Hemoglobin A1c 6.9 % (4.5-5.6) Calcium Level 9.3 mg/dl (8.5-10.1) Bedside Glucose 215 mg/dl (70-90) Imaging As noted above in HPI Impression This is a 66-year-old female who presents with upper viral respiratory symptoms , shortness of breath, dizziness, and recent fall and minor head injury. Patient may have mild concussion contributing to dizziness. In addition patient does have upper respiratory viral symptoms which could be contributing to dizziness as well and recent history of right ear pain along with more chronic hearing loss and tinnitus which could predispose her towards vertigo type symptoms. Plan Reassured the patient that there is no structural neurological lesion causing her dizziness. Dizziness could be either a combination of mild concussion, viral syndrome, or inner ear vertigo. Recommend symptomatic treatment with medications as needed and physical therapy. No additional neurological recommendations at this time. If there is any questions or concerns, feel free to call/page me.
[2017-08-25 17:39] LABS: INFLUENZA B ANTIGEN Neg for Influ B (NEG)
[2017-08-25] MEDS ORDERED: OSELTAMIVIR PHOSPHATE 75 MG CAP PO STA (17:49)
[2017-08-25] MEDS: TIMOLOL OPR SCH (20:34)
[2017-08-25] MEDS: BRIMONIDINE TARTRATE OPR SCH (20:34)
[2017-08-25] MEDS: ASPIRIN 81 MG ECTAB PO SCH (20:41)
[2017-08-25] MEDS: LOSARTAN POTASSIUM 50 MG TAB PO SCH (20:41)
[2017-08-25] MEDS: SIMVASTATIN 40 MG TAB PO SCH (20:42)
[2017-08-25] MEDS: MONTELUKAST SOD 10 MG TAB PO SCH (20:42)
[2017-08-25] MEDS: BuPROPion XL 300 MG TABCR PO SCH (20:42)
[2017-08-26] VITALS (8 sets, daily range): BP systolic 121–142; BP diastolic 66–89; PULSE 60–70; TEMP 36.8–36.9; O2SAT 91–96
[2017-08-26] MEDS: ALBUT/IPRATROP 3MG/0.5MG NEB 3 ML VIAL INH SCH ×4 (01:45→19:35)
[2017-08-26 06:46] LABS: BASO % 0.1 %; BASO ABS # 0.01 K/uL (0-0.2); EOS % 0.4 %; EOS ABS # 0.03 K/uL (0-0.5); HEMATOCRIT 40.7 % (37-47); HEMOGLOBIN 13.5 g/dL (12.0-16.0); IG# 0.01 K/uL (0.00-0.02); LYMPH % 13.5 %; LYMPH ABS # 1.02 K/uL (1.2-3.4); MEAN CELL VOLUME 83.4 fL (80-100); MEAN CORPUSCULAR HEMOGLOBIN 27.7 pg (25-34); MEAN CORPUSCULAR HGB CONC 33.2 g/dl (32-36); MEAN PLATELET VOLUME 10.3 fL (7.4-10.4); MONO % 5.2 %; MONO ABS # 0.39 K/uL (0.11-0.59); NEUT % 80.7 %; NEUT ABS # 6.09 K/uL (1.4-6.5); PLATELET COUNT 218 K/uL (130-400); RED CELL DISTRIBUTION WIDTH CV 13.5 % (11.5-14.5); RED CELL DISTRIBUTION WIDTH SD 40.9 fL (36.4-46.3); WHITE BLOOD COUNT 7.55 K/uL (4.8-10.8)
[2017-08-26] MEDS: HEPARIN SOD 5000 UNIT/0.5 ML CARP SQ SCH ×3 (06:48→22:07)
[2017-08-26 06:52] LABS: CREATININE 0.96 mg/dl (0.60-1.20); POTASSIUM 4.4 mmol/L (3.5-5.1)
[2017-08-26] MEDS: INSULIN ASPART 100 UNITS/ML 3 ML PEN SC SCH ×4 (09:20→22:07)
[2017-08-26] MEDS: METHYLPREDNISOLONE IV 60 MG in SYRINGE 0 ML IV SCH (09:21)
[2017-08-26] MEDS: INSULIN GLARGINE SOLOSTAR 100 UNITS/ML 3 ML PEN SC SCH (09:21)
[2017-08-26] MEDS: BRIMONIDINE TARTRATE OPR SCH ×2 (09:22→22:00)
[2017-08-26] MEDS: PANTOprazole SOD 40 MG TAB PO SCH (09:22)
[2017-08-26] MEDS: TIMOLOL OPR SCH ×2 (09:22→22:00)
[2017-08-26] MEDS: ESCITALOPRAM OXALATE 20 MG TAB PO SCH (09:22)
[2017-08-26] MEDS: PrednisoLONE ACET 1% OP SUSP 5 ML BTL OPR SCH (09:22)
[2017-08-26] MEDS: OSELTAMIVIR PHOSPHATE 75 MG CAP PO SCH ×2 (09:23→22:03)
[2017-08-26] MEDS: LEVOFLOXACIN 500 MG TAB PO SCH (10:41)
[2017-08-26] MEDS ORDERED: GUAIFENESIN 600 MG TABCR PO ONE (11:55)
--- NOTE | 2017-08-26 12:11 | Hospitalist Progress Note ---
Hospitalist Progress Note Date of Service Aug 26, 2017. (Rosario Trevizo PA-C) Subjective Pt evaluation today including: conversation w/ patient, conversation w/ family , physical exam, chart review, lab review, review of studies, review of inpatient medication list Patient seen and evaluate. No acute events overnight. Reporting feeling better today. Minimal dizziness. Continues to have a cough that is non-productive but feels that there is mucus in her chest. Appropriate saturations on RA. Good air movement but is course b/l. As been eating and drinking without issue. Discussed MRI findings and states she is aware of her meningioma and it has been present many years Constitutional: No fever, No chills Respiratory: + cough, No sputum, No shortness of breath Cardiovascular: No chest pain Abdomen: No pain, No nausea, No vomiting Female : No dysuria Heme: No abnormal bleeding/bruising Skin: No rash (Rosario Trevizo, MASHAC) Medications Current Inpatient Medications Medications (Trade) Dose Ordered Sig/[place] Route Start Time Stop Time Status Last Admin Dose Admin Heparin Sodium (Porcine) (Heparin Sq 5000 Unit/0.5ml) 5,000 unit Q8H SQ 08/24/17 06:00 09/23/17 05:59 08/26/17 06:48 5,000 UNIT Acetaminophen (Tylenol Tab) 650 mg Q4H PRN PO 08/24/17 03:00 09/23/17 02:59 Al Hydrox/Mg Hydrox/Simethicone (Maalox Max Susp) 15 ml Q4H PRN PO 08/24/17 03:00 09/23/17 02:59 Magnesium Hydroxide (Milk Of Magnesia Susp) 30 ml Q6H PRN PO 08/24/17 03:00 09/23/17 02:59 Polyethylene (Miralax Powder Packet) 17 gm DAILY PRN PO 08/24/17 03:00 09/23/17 02:59 Zolpidem Tartrate (Ambien Tab) 5 mg HSZ PRN PO 08/24/17 03:00 09/23/17 02:59 Ondansetron HCl (Zofran Inj) 4 mg Q6H PRN IV 08/24/17 03:00 09/23/17 02:59 08/24/17 15:36 4 MG Aspirin (Ecotrin Tab) 81 mg HS PO 08/24/17 21:00 09/23/17 20:59 08/25/17 20:41 81 MG Bupropion HCl (Wellbutrin-Xl Tab) 300 mg HS PO 08/24/17 21:00 09/23/17 20:59 08/25/17 20:42 300 MG Escitalopram Oxalate (Lexapro Tab) 20 mg QAM PO 08/24/17 08:00 09/23/17 08:59 08/26/17 09:22 20 MG Hydroxyzine HCl (Vistaril Tab) 10 mg TID PRN PO 08/24/17 03:00 09/23/17 02:59 Losartan Potassium (coZAAR TAB) 50 mg QPM PO 08/24/17 21:00 09/23/17 20:59 08/25/17 20:41 50 MG Montelukast Sodium (Singulair Tab) 10 mg HS PO 08/24/17 21:00 09/23/17 20:59 08/25/17 20:42 10 MG Prednisolone Acetate (Pred Forte 1% Oph Susp) 1 drops QAM OPR 08/24/17 08:00 09/23/17 08:59 08/26/17 09:22 1 DROPS Simvastatin (Zocor Tab) 40 mg HS PO 08/24/17 21:00 09/23/17 20:59 08/25/17 20:42 40 MG Pantoprazole Sodium (Protonix Tab) 40 mg QAM PO 08/24/17 08:00 09/23/17 08:59 08/26/17 09:22 40 MG Albuterol/ Ipratropium (Duoneb) 3 ml Q6R INH 08/24/17 09:00 09/23/17 08:59 08/26/17 07:07 3 ML Albuterol Sulfate (Ventolin 0.083% 2.5MG/3ML Neb) 2.5 mg Q4H PRN INH 08/24/17 03:00 09/23/17 02:59 Miscellaneous (Iv Fluids Completed) 1 ea PRN PRN N/A 08/24/17 04:30 08/24/18 04:29 Glucose (Glucose 40% Gel) 15-30 GRAMS 15 GRAMS... UD PRN PO 08/24/17 04:45 09/23/17 04:44 Glucose (Glucose Chew Tab) 4-8 Tablets 4 Tabl... UD PRN PO 08/24/17 04:45 09/23/17 04:44 Dextrose (Dextrose 50% 50ML Syringe) 25-50ML OF 50% DW IV FOR... UD PRN IV 08/24/17 04:45 09/23/17 04:44 Glucagon (Glucagon Inj) 1 mg UD PRN SQ 08/24/17 04:45 09/23/17 04:44 Levofloxacin (Consult) 1 ea UD PRN N/A 08/24/17 07:45 09/23/17 07:44 Insulin Aspart (novoLOG ASPART) SLIDING SCALE If C... ACHS SC 08/24/17 16:30 09/23/17 16:29 08/26/17 09:20 4 UNITS Levofloxacin (Levaquin Tab) 500 mg DAILY@11 PO 08/25/17 11:00 08/31/17 10:59 08/26/17 10:41 500 MG Promethazine HCl 12.5 mg/Sodium Chloride 50.5 ml @ 204 mls/hr Q6H PRN IV 08/24/17 17:00 09/23/17 16:59 Insulin Glargine (Lantus Solostar Pen) 20 units QAM SC 08/25/17 08:00 09/23/17 08:59 08/26/17 09:21 20 UNITS Meclizine HCl (Antivert Tab) 25 mg Q8H PRN PO 08/24/17 23:00 09/23/17 22:59 08/25/17 09:43 25 MG Gadobutrol (Gadavist) 14 mmol UD PRN IV 08/25/17 11:00 08/29/17 10:59 Oseltamivir Phosphate (Tamiflu Cap) 75 mg BID PO 08/26/17 08:00 08/31/17 07:59 08/26/17 09:23 75 MG Brimonidine/ Timolol (Combigan 0.2%/ 0.5%) 1 drop BID OPR 08/25/17 20:00 09/24/17 19:59 08/26/17 09:22 1 DROP Prednisone (PredniSONE TAB) 60 mg DAILY PO 08/27/17 08:00 09/26/17 07:59 (Rosario Trevizo PA-C) Objective Vital Signs Date Time Temp Pulse Resp B/P (MAP) Pulse Ox O2 Delivery O2 Flow Rate FiO2 08/26/17 09:59 Room Air 08/26/17 07:13 67 18 142/89 (106) 92 Room Air 08/26/17 07:07 67 16 92 Room Air 08/26/17 00:20 36.8 70 20 141/66 (91) 91 Room Air 08/25/17 23:59 Room Air 08/25/17 19:15 75 16 97 Room Air 08/25/17 16:00 Room Air 08/25/17 15:24 37.1 73 18 128/74 (92) 93 Room Air 08/25/17 14:49 83 18 96 Room Air (Rosario Trevizo PA-C) Physical Exam General Appearance: WD/WN, no apparent distress Eyes: sclerae normal ENT: hearing grossly normal Neck: supple, no JVD, trachea midline Respiratory/Chest: no respiratory distress, no accessory muscle use, + rhonchi Cardiovascular: regular rate, rhythm, no gallop, no murmur Abdomen: normal bowel sounds, non tender, soft Extremities: no pedal edema Neurologic/Psychiatric: alert Skin: normal color, warm/dry (Rosario Trevizo PA-C) Laboratory Results Last 24 Hours Test 08/25/17 16:35 08/25/17 16:45 08/25/17 20:29 08/26/17 05:51 Influenza Type A Antigen POS for Influ A Influenza Type B Antigen Neg for Influ B Bedside Glucose 287 mg/dl 277 mg/dl White Blood Count 7.55 K/uL Red Blood Count 4.88 M/uL Hemoglobin 13.5 g/dL Hematocrit 40.7 % Mean Corpuscular Volume 83.4 fL Mean Corpuscular Hemoglobin 27.7 pg Mean Corpuscular Hemoglobin Concent 33.2 g/dl Platelet Count 218 K/uL Mean Platelet Volume 10.3 fL Neutrophils (%) (Auto) 80.7 % Lymphocytes (%) (Auto) 13.5 % Monocytes (%) (Auto) 5.2 % Eosinophils (%) (Auto) 0.4 % Basophils (%) (Auto) 0.1 % Neutrophils # (Auto) 6.09 K/uL Lymphocytes # (Auto) 1.02 K/uL Monocytes # (Auto) 0.39 K/uL Eosinophils # (Auto) 0.03 K/uL Basophils # (Auto) 0.01 K/uL RDW Standard Deviation 40.9 fL RDW Coefficient of Variation 13.5 % Immature Granulocyte % (Auto) 0.1 % Immature Granulocyte # (Auto) 0.01 K/uL Red Blood Cell Morphology Unremarkable Sodium Level 137 mmol/L Potassium Level 4.4 mmol/L Chloride Level 103 mmol/L Carbon Dioxide Level 29 mmol/L Anion Gap 5.0 mmol/L Blood Urea Nitrogen 17 mg/dl Creatinine 0.96 mg/dl Est Creatinine Clear Calc Drug Dose 83.5 ml/min Estimated GFR () 70.4 Estimated GFR (Non- 60.8 BUN/Creatinine Ratio 17.4 Random Glucose 234 mg/dl Calcium Level 9.0 mg/dl Test 08/26/17 07:42 Bedside Glucose 222 mg/dl (Rosario Trevizo, PAShiraC) Assessment and Plan This patient is a 66-year-old female with history of 63-[id number]-[id number] smoking, frequent bronchitis, HTN, HL, anxiety disorder, morbid obesity, DM type II, here with acute bronchitis, likely COPD and/or asthma exacerbation, acute hypoxic respiratory failure, and dizziness. Dizziness/Nausea 2/2 Vertigo vs Vestibular Neuronitis from Illness: RESOLVING - No findings of CVA; Head MRI reveals meningioma that patient reports she is aware of and has had for many years - She states that it is almost completely gone at this point - Phenergan PRN and Meclizine PRN - Neurology consulted - appreciate recommendations - no further interventions necessary just supportive Acute Hypoxic Respiratory Failure 2/2 Acute Bronchitis/COPD Exacerbation and Influenza A: - Levaquin 500 mg daily; Tamiflu 75 mg BID - Transition to Prednisone 60 mg daily and taper - Duonebs and ventolin; Add Mucinex BID Fever 2/2 Likely Viral Illness vs Bacterial Bronchitis: - > 24 hours afebrile; treatment as above T2DM: A1c 6.9 - Would expect improvement now with transition to Prednisone and taper - Lantus 20 units daily and SSI Chronic Environmental/Season Allergics/Chronic Sinusitis: Follows with ENT with Nasal Polyp Removal - No evidence of sinusitis on MRI; Singulair 10 mg HS TAWANDA: - Outpatient sleep study for CPAP titration - continue nocturnal O2 Anxiety Disorder: STABLE - Continue Wellbutrin 300 mg HS and Lexapro 20 mg daily; Vistaril PRN HTN/HLD: STABLE - Continue Losartan 50 mg daily and Simvastatin 40 mg HS DVT Prophylaxis: Heparin Disposition: Possible D/C tomorrow Discharge planning: home (Rosario Trevizo PA-C) Supervising Note Dr. Parry I performed a history and physical examination on the patient. I reviewed above note and agree with it. I discussed plan with APC and patient. During my face to face encounter with the patient, I answered all of the patient's questions. No further recommendations per Neurology. Will continue to monitor for another day. (Clark Parry M.D.)
[2017-08-26] MEDS: LOSARTAN POTASSIUM 50 MG TAB PO SCH (22:03)
[2017-08-26] MEDS: ASPIRIN 81 MG ECTAB PO SCH (22:04)
[2017-08-26] MEDS: MONTELUKAST SOD 10 MG TAB PO SCH (22:04)
[2017-08-26] MEDS: SIMVASTATIN 40 MG TAB PO SCH (22:04)
[2017-08-26] MEDS: BuPROPion XL 300 MG TABCR PO SCH (22:04)
[2017-08-26] MEDS: GUAIFENESIN 600 MG TABCR PO SCH (22:04)
[2017-08-27] MEDS: ALBUT/IPRATROP 3MG/0.5MG NEB 3 ML VIAL INH SCH ×3 (01:48→14:20)
[2017-08-27] MEDS: HEPARIN SOD 5000 UNIT/0.5 ML CARP SQ SCH ×2 (06:00→14:00)
[2017-08-27 07:06] LABS: HEMATOCRIT 42.4 % (37-47); HEMOGLOBIN 14.2 g/dL (12.0-16.0); MEAN CELL VOLUME 83.6 fL (80-100); MEAN CORPUSCULAR HGB CONC 33.5 g/dl (32-36); MEAN PLATELET VOLUME 9.3 fL (7.4-10.4); PLATELET COUNT 188 K/uL (130-400); RED CELL DISTRIBUTION WIDTH CV 13.5 % (11.5-14.5); RED CELL DISTRIBUTION WIDTH SD 40.2 fL (36.4-46.3); WHITE BLOOD COUNT 6.66 K/uL (4.8-10.8)
[2017-08-27 07:09] VITALS: PULSE 68; O2SAT 96
[2017-08-27 07:25] VITALS: BP 135/84; PULSE 66; TEMP 36.5
[2017-08-27 07:40] LABS: CALCIUM 8.7 mg/dl (8.5-10.1); CREATININE 0.93 mg/dl (0.60-1.20); POTASSIUM 3.6 mmol/L (3.5-5.1)
[2017-08-27] MEDS: OSELTAMIVIR PHOSPHATE 75 MG CAP PO SCH (07:58)
[2017-08-27] MEDS: GUAIFENESIN 600 MG TABCR PO SCH (07:58)
[2017-08-27] MEDS: ESCITALOPRAM OXALATE 20 MG TAB PO SCH (07:58)
[2017-08-27] MEDS: PANTOprazole SOD 40 MG TAB PO SCH (07:58)
[2017-08-27] MEDS: BRIMONIDINE TARTRATE OPR SCH (07:59)
[2017-08-27] MEDS: TIMOLOL OPR SCH (07:59)
[2017-08-27] MEDS: PrednisoLONE ACET 1% OP SUSP 5 ML BTL OPR SCH (07:59)
[2017-08-27] MEDS: INSULIN ASPART 100 UNITS/ML 3 ML PEN SC SCH ×2 (08:50→12:30)
[2017-08-27] MEDS: INSULIN GLARGINE SOLOSTAR 100 UNITS/ML 3 ML PEN SC SCH (08:51)
[2017-08-27] MEDS: LEVOFLOXACIN 500 MG TAB PO SCH (12:27)
[2017-08-27] MEDS ORDERED: IPRA1AER2 INH (13:27)
[2017-08-27] MEDS ORDERED: VNTHFA/IN INH (13:27)
[2017-08-27] MEDS ORDERED: PRD20 PO (13:27)
[2017-08-27] MEDS ORDERED: TMF75 PO (13:27)
[2017-08-27] MEDS ORDERED: LVQ500 PO (13:27)
[2017-08-27] MEDS ORDERED: GFNSR600 PO (13:27)
--- NOTE | 2017-08-27 13:37 | Discharge Instructions ---
Discharge Instructions Date of Service Aug 27, 2017. Admission Reason for Admission: Asthma Exacerbation, Fall Discharge Discharge Diagnosis / Problem: Chronic obstructive pulmonary disease exacerbation, influenza A Discharge Goals Goal(s): Decrease discomfort, Improve function, Diagnostic testing, Therapeutic intervention Activity Recommendations Activity Limitations: resume your previous activity (as tolerated) . Instructions / Follow-Up Instructions / Follow-Up You were admitted to the hospital after presenting with hypoxia and coughing. It is suspected that you have some underlying pulmonary disease, such as chronic obstructive pulmonary disease (COPD), due to your history of smoking, and this chronic disease was exacerbated by a flu infection. You initially required supplemental oxygen but have since been weaned off. You were treated with IV steroids, an antibiotic for a likely bacterial bronchitis, and breathing treatments. You were also started on Tamiflu for your influenza infection. You are now breathing better and are off IV medications. You are now medically stable for discharge. Medications: *Please take Levaquin 500 mg by mouth daily for 3 more days to complete your antibiotic course. Start this medication on 08/28. *Please take the following prednisone taper as directed. This is an oral steroid. -Take 3 tablets daily for 2 days, then -Take 2 tablets daily for 2 days, then -Take 1 tablet daily for 2 days, then stop *Please take Tamiflu 75 mg twice a day for 3 more days to complete the course. This is an antiviral for the flu. *You may take Mucinex 1200 mg twice a day for the next week. *Please use the Combivent inhaler 1 puff four times a day. This is the same medication that you received in your nebulizer breathing treatments while inpatient. *You may use the albuterol inhaler every 6 hours as needed for shortness of breath and/or wheezing. *Continue your other home medications as prescribed. Follow up: *You will be scheduled to follow up with your primary care provider. You provider may change your inhaler regimen. *Once you have recovered from your acute illnesses, you will need an outpatient test called a pulmonary function test to determine if you have underlying pulmonary disease. Please seek medical attention if you experience fevers, chills, sweats, dizziness/lightheadedness, loss of consciousness, chest pain, shortness of breath, nausea, vomiting, numbness or tingling. Current Hospital Diet Patient's current hospital diet: AHA Diet (Heart Healthy), Diabetes Type 2 Diet Discharge Diet Recommended Diet: AHA Diet (Heart Healthy), Diabetes Type 2 Diet Pending Studies Studies pending at discharge: no Laboratory Results Hemoglobin A1c Test 08/25/17 06:07 Range/Units Estimated Average Glucose 151 mg/dl Hemoglobin A1c 6.9 H 4.5-5.6 % Medical Emergencies . Who to Call and When: Medical Emergencies: If at any time you feel your situation is an emergency, please call 911 immediately. . Non-Emergent Contact Non-Emergency issues call your: Primary Care Provider Call Non-Emergent contact if: you have a fever, you have any medication questions . Past History Medical & Surgical History: (1) COPD exacerbation . "Provider Documentation" section prepared by Grazyna Dash. .
--- NOTE | 2017-08-27 13:55 | Discharge Summary ---
Discharge Summary Date of Service Aug 27, 2017. Discharge Summary Admission Date: Aug 24, 2017 at 14:00 Discharge Date: Aug 27, 2017 Discharge Disposition: Home Principal Diagnosis: COPD exacerbation Problems/Secondary Diagnoses: HTN, HLD, anxiety disorder, morbid obesity, DM type II Immunizations: Have You Had Influenza Vaccine: N/A History of Tetanus Vaccine?: Yes Tetanus Immunization Date: May 29, 2001 History of Pneumococcal: Yes History of Hepatitis B Vaccine: Yes Procedures: MRI OF THE BRAIN COMBO CLINICAL HISTORY: Headaches and dizziness. Recent fall with head injury. COMPARISON STUDY: CT of the brain dated 08/23/2017. TECHNIQUE: MRI of the brain was performed utilizing various T1 and T2-weighted sequences in the axial, sagittal, and coronal planes. Contrast-enhanced sequences were acquired following the administration of 14 cc of Gadavist. FINDINGS: Brain parenchyma: There are age-related involutional changes noting mild subcortical and periventricular microangiopathic disease. There is no hemorrhage or mass effect. There is no restricted diffusion to suggest acute ischemia. A 10 mm homogeneously enhancing extra-axial nodule along the right frontal convexity seen on axial image #17. This was shown to contain calcification on the 08/14/2016 CT scan. The appearance is typical for a small meningioma. No additional enhancing mass lesion is identified. Zamorano-white matter differentiation is preserved. No extra-axial fluid collection is seen. The cerebellar tonsils are normal in configuration. Ventricles, sulci, and cisterns: Prominent secondary to involutional change. Pituitary and sella: Partially empty sella is incidentally noted. Intracranial vasculature: Normal flow voids are maintained at the skull base. Orbits: The bony orbits are grossly intact. Orbital contents are normal in appearance noting bilateral ocular lens implants. Sinuses and mastoids: There is evidence of previous paranasal sinus surgery. The paranasal sinuses and mastoid air cells are clear. Calvarium: Unremarkable. Cervical cord: Partially visualized cervical spinal cord is normal in morphology and signal intensity. IMPRESSION: 1. Mild age related change with no acute intracranial abnormality. 2. A 10 mm meningioma is incidentally noted along the right frontal convexity. There is no associated mass effect. Consultations: Neurology Medication Reconciliation New Medications: Albuterol Hfa (Ventolin Hfa) 200 Puffs/86362 Mcg Aers 2-4 PUFFS INH Q6H PRN for SOB/Wheezing for 30 Days, #1 INHALER Ipratropium-Albuterol (Combivent Respimat) 1 Aer Aer 1 PUFFS INH QID for 30 Days, #120 PUFF Guaifenesin Ext Rel (Mucinex Ext Rel) 600 Mg Tabcr 1200 MG PO Q12 for 7 Days, #28 TABS Levofloxacin (Levofloxacin) 500 Mg Tab 500 MG PO DAILY@11 for 3 Days, #3 TAB Oseltamivir Phosphate (Tamiflu) 75 Mg Cap 75 MG PO BID for 3 Days, #6 CAP Prednisone (Prednisone) 20 Mg Tab 60 MG PO DAILY for 6 Days, #12 TAB Take 3 tabs daily for 2 days, then 2 tabs daily for 2 days, then 1 tab daily for 2 days Continued Medications: Acetaminophen (Tylenol) 500 Mg Tab 1000 MG PO UD PRN for Headache or Pain, TAB TAKE PER PACKAGE DIRECTIONS Aspirin (Aspirin Chewable) 81 Mg Chew 81 MG PO HS Brimonidine Tartrate-Timolol M (Combigan) 1 Sunita Sunita 1 DROP OPR BID Bupropion (Wellbutrin-Xl) 300 Mg Tabcr 300 MG PO HS, TAB Escitalopram Oxalate (Lexapro) 20 Mg Tab 20 MG PO QAM, TAB Esomeprazole Magnesium (Nexium) 40 Mg Capcr 40 MG PO QAM, CAP Hydroxyzine Hcl (Atarax) 10 Mg Tab 10 MG PO TID PRN for Anxiety, TAB Insulin Glargine (Lantus) 100 Unit/Ml Inj 15 UNITS SC QAM, VIAL Liraglutide (Victoza) 18 Mg/3 Ml Inj 18 MG SC QPM Losartan Potassium (Cozaar) 50 Mg Tab 50 MG PO QPM, TAB Montelukast Sodium (Singulair) 10 Mg Tab 10 MG PO HS, TAB Prednisolone Acetate (Ophth) (Pred Forte 1% Oph) 1 % Stella 1 DROP OPR QAM Simvastatin (Zocor) 40 Mg Tab 40 MG PO HS, TAB Discharge Exam The patient reports feeling improved. She is able to move around easier, although she still reports some degree of shortness of breath and dyspnea on exertion. She continues to have productive cough with yellow sputum, but this is improving. Her wheezing is also improved. She denies feeling any weaker or more fatigued than normal. She did have some nausea this morning but denies pain or vomiting, and this has since resolved. The patient denies fevers, chills, sweats, chest pain, palpitations, claudication, vomiting, abdominal pain , dysuria, hematuria, urinary retention, paralysis, weakness, numbness and tingling. Constitutional: No fever, No chills, No sweats Eyes: No worsening of vision, No eye pain, No diplopia ENT: No hearing loss, No nasal symptoms, No trouble swallowing Respiratory: +Cough, wheezing, SOB, MCCANN improved Cardiovascular: No chest pain, No claudication, No palpitations Abdomen: +Nausea, resolved. No pain, No vomiting Musculoskeletal: No joint pain, No muscle pain, No swelling Genitourinary - Female: No dysuria, No urinary retention, No hematuria Neurologic: No paralysis, No weakness, No numbness/tingling Integumentary: No rash, No itch, No color change General appearance: +Morbidly obese. Well-developed, well-nourished, no apparent distress Head: Normocephalic, atraumatic Eyes: Normal inspection, PERRL, EOMI ENT: Normal ENT inspection, hearing grossly normal, pharynx normal Neck: Supple, no JVD, trachea midline Respiratory/Chest: Lungs clear to auscultation, normal breath sounds, no respiratory distress Cardiovascular: Regular rate & rhythm, no gallop, no murmur Abdomen/GI: Normal bowel sounds, non-tender, soft Extremities/Musculoskeletal: Normal inspection, no calf tenderness, no pedal edema Neurological/Psych: Alert, normal mood/affect, oriented x 3 Skin: Normal color, warm/dry, no rash Hospital Course 66 y/o female with a history of [id number] smoking, frequent bronchitis, HTN, HLD, anxiety disorder, morbid obesity, and DM type II who presents with acute bronchitis, likely COPD exacerbation, acute hypoxic respiratory failure, and dizziness. Dizziness/Nausea due to Vertigo vs Vestibular Neuronitis from Illness--resolving - No findings of CVA; Head MRI reveals meningioma that patient reports she is aware of and has had for many years - She states that it is almost completely gone at this point - Phenergan PRN and Meclizine PRN - Neurology consulted, appreciate recs: No further testing or recommendations at this time Acute Hypoxic Respiratory Failure due Acute Bronchitis/COPD Exacerbation and Influenza A--improving - Weaned off oxygen several days ago - Continue Levaquin 500 mg PO qd, day #4 of 7. Will continue for 3 more days as outpatient - Continue Tamiflu 75 mg BID, day #2 of 5. Continue for 3 more days as outpatient - Prednisone 60 mg taper: 60 mg x 2 days, 40 mg x 2 days, 20 mg x 2 days, then stop - Mucinex 1200 mg PO BID - Received DuoNebs here, will d/c with Combivent inhaler scheduled and albuterol rescue inhaler for now. Will need outpatient PFTs once recovered from acute illness Fever likely due to influenza/bacterial bronchitis as above--resolved - Afebrile since 08/25 DM II--HgbA1c 6.9 on 08/25 - Victoza held while inpatient - Lantus 20 units SC qd - Insulin sliding scale - Check BSGs q ac and qhs Chronic Environmental/Seasonal Allergies/Chronic Sinusitis: Follows with ENT with Nasal Polyp Removal - No evidence of sinusitis on MRI - Continue Singulair 10 mg HS TAWANDA - Outpatient sleep study for CPAP titration - continue nocturnal O2 Anxiety Disorder--stable - Continue Wellbutrin 300 mg HS and Lexapro 20 mg daily; Vistaril PRN HTN/HLD--stable - Continue Losartan 50 mg daily and Simvastatin 40 mg HS DVT Prophylaxis -Heparin 5000 units SC q8h Code Status -Level I, FULL RESUSCITATION STATUS Total Time Spent: Greater than 30 minutes This includes examination of the patient, discharge planning, medication reconciliation, and communication with other providers. Discharge Instructions Please refer to the electronic Patient Visit Report (Discharge Instructions) for additional information. Additional Copies To Ben Álvarez DO
[2017-08-27 14:19] VITALS: BP 135/84; PULSE 66; TEMP 36.5; O2SAT 96
[2017-08-27 14:20] VITALS: PULSE 60; O2SAT 94
== END 2017-08-27 15:05 | disposition home or self-care (01) | DRG 193 ==
LOC: C.EDB 19:08 → C.MS4W 08-24 03:01 → UNDOADMOB 08-24 03:01 → ENRESERV 08-24 03:30 → INTOOBSV 08-24 14:00 → OBSVTOIN 08-24 14:00
PROVIDERS: ADMIT Family Medicine; ATTEND Internal Medicine
DX: J10.1 Influenza due to other identified influenza virus with other respiratory manifestations (principal); J96.01 Acute respiratory failure with hypoxia; J44.0 Chronic obstructive pulmonary disease with (acute) lower respiratory infection; J44.1 Chronic obstructive pulmonary disease with (acute) exacerbation; Z68.43 Body mass index [BMI] 50.0-59.9, adult; J20.9 Acute bronchitis, unspecified; I10 Essential (primary) hypertension; E78.5 Hyperlipidemia, unspecified; F41.9 Anxiety disorder, unspecified; E66.01 Morbid (severe) obesity due to excess calories; E11.9 Type 2 diabetes mellitus without complications; G47.33 Obstructive sleep apnea (adult) (pediatric); S09.90XA Unspecified injury of head, initial encounter; Z79.4 Long term (current) use of insulin; Z79.82 Long term (current) use of aspirin; Z79.899 Other long term (current) drug therapy; Z88.1 Allergy status to other antibiotic agents; W19.XXXA Unspecified fall, initial encounter

== ENCOUNTER → 2017-09-18 | Outpatient (CLI) | payer BC ==
[~2017-09-18] MED LIST changes: +GFNSR600 PO; +IPRA1AER2 INH; +LVQ500 PO; +PRD20 PO; +TMF75 PO; +VNTHFA/IN INH
--- NOTE | 2017-09-19 15:29 | MAMMOGRAPHY REPORT ---
BILATERAL DIGITAL SCREENING MAMMOGRAM TOMOSYNTHESIS WITH CAD: 09/18/2017 CLINICAL HISTORY: Routine screening. TECHNIQUE: Breast tomosynthesis in addition to standard 2D mammography was performed. Current study was also evaluated with a Computer Aided Detection (CAD) system. COMPARISON: Comparison is made to exams dated: 08/22/2016 mammogram, 08/20/2015 mammogram, 08/18/2014 m ammogram, 08/14/2013 mammogram, 08/13/2012 mammogram, and 08/10/2011 mammogram - [facility] enter. BREAST COMPOSITION: The tissue of both breasts is almost entirely fatty. FINDINGS: There are scattered bilateral punctate benign-appearing microcalcifications. No suspicious spiculated or irregular mass, architectural distortion or cluster of new, suspicious microcalcificat ions is seen. IMPRESSION: ACR BI-RADS CATEGORY 1: NEGATIVE There is no mammographic evidence of malignancy. A 1 year screening mammogram is recommended. The pa tient will receive written notification of the results. Approximately 10% of breast cancers are not detected with mammography. A negative mammographic report should not delay biopsy if a clinically suggestive mass is present. Gloria Herndon M.D. ay/:09/18/2017 15:41:37 Well Testing Operator: Destini CONCEPCION(R)(Joe), [facility] letter sent: Normal 1/2 BI-RADS Code: ACR BI-RADS Category 1: Negative
== END | disposition home or self-care (01) ==
LOC: C.MAMM 13:50
PROVIDERS: ATTEND Family Medicine
DX: Z12.31 Encounter for screening mammogram for malignant neoplasm of breast (principal)